=== PATIENT | male | born 1950 | race Caucasian/White ===

== ENCOUNTER 2018-01-15 18:07 | Inpatient (IN) | payer MEDICARE, OTHER ==
[2018-01-15] MEDS: INSULIN ASPART SUPPLEMENTAL SCALE SQ SCH
[~2018-01-15 18:07] MED LIST: HUMIBIDDM PO; ZITHTAB PO
[2018-01-15 18:38] VITALS: BP 94/43; PULSE 57; RESP 12; TEMP 97.9; O2SAT 96
[2018-01-15 19:13] LABS: AUTOMATED NEUTROPHIL # 13.7 TH/MM3 (1.8-7.7); BASOPHIL # 0.1 TH/MM3 (0-0.2); BASOPHIL % 0.5 % (0.0-2.0); EOSINOPHIL # 0.3 TH/MM3 (0-0.4); EOSINOPHIL % 1.6 % (0.0-4.0); LYMPH % 5.6 % (9.0-44.0); LYMPHOCYTE # 0.9 TH/MM3 (1.0-4.8); MEAN CELL VOLUME 97.6 FL (80.0-100.0); MEAN CORPUSCULAR HEMOGLOBIN 31.1 PG (27.0-34.0); MEAN CORPUSCULAR HGB CONC 31.9 % (32.0-36.0); MEAN PLATELET VOLUME 10.7 FL (7.0-11.0); MONO % 6.7 % (0.0-8.0); MONOCYTE # 1.1 TH/MM3 (0-0.9); NEUT % 85.6 % (16.0-70.0); PLATELET COUNT 143 TH/MM3 (150-450); RED BLOOD COUNT 2.08 MIL/MM3 (4.50-5.90); RED CELL DISTRIBUTION WIDTH 16.5 % (11.6-17.2)
[2018-01-15 19:18] LABS: HEMATOCRIT 20.3 % (39.0-51.0); HEMOGLOBIN 6.5 GM/DL (13.0-17.0)
[2018-01-15 19:24] LABS: INTERNATIONAL NORMALIZED RATIO 1.3 RATIO; PROTHROMBIN TIME - PATIENT 13.6 SEC (9.8-11.6)
[2018-01-15 19:29] LABS: TOTAL PROTEIN 5.6 GM/DL (6.4-8.2)
[2018-01-15] MEDS ORDERED: SODIUM CHLOR 0.9% 250 ML INJ 250 ML IV ONE (19:30)
--- NOTE | 2018-01-15 19:31 | PD ---
HPI Chief Complaint: Abnormal Results Time Seen by Provider: 18:38 Travel History International Travel<30 days: No Contact w/Intl Traveler<30days: No Traveled to known affect area: No History of Present Illness HPI Patient is a 67-year-old male who comes in due to swelling and bruising to his right groin where he had a cardiac cath done on . Per , it looked fine after the procedure, yesterday started to bruise and today got more severely swollen. Patient has a lot of pain to the area. They deny any trauma. He has been experiencing some dizziness. He denies chest pain or shortness of breath. He is a dialysis patient, scheduled for dialysis tomorrow. PFSH Past Medical History Asthma: Yes Cardiovascular Problems: Yes COPD: Yes Diabetes: Yes Patient Takes Glucophage: No Dialysis: Yes Diminished Hearing: No Past Surgical History Valve Replacement: Yes Social History Alcohol Use: No Tobacco Use: No Substance Use: No Allergies-Medications (Allergen,Severity, Reaction): Coded Allergies: heparin (Verified Allergy, Severe, 10/20/17) Reported Meds & Prescriptions Reported Meds & Active Scripts Active Mucinex DM (Dextromethorphan-Guaifenesin) 30-600 Mg Tab 1 Tab PO BID PRN 7 Days Zithromax Z-Deandre (Azithromycin) 250 Mg Dspk 250 Mg PO DIRECTED 500 MG (2 tabs) day 1, then 1 tab days 2-5. Review of Systems Except as stated in HPI: all other systems reviewed are Neg General / Constitutional: No: Fever, Chills HENT: Positive: Lightheadedness, No: Headaches Cardiovascular: No: Chest Pain or Discomfort Respiratory: No: Shortness of Breath Gastrointestinal: No: Nausea, Vomiting Musculoskeletal: Positive: Edema, Pain Skin: Positive Change in Pigmentation Neurologic: Positive: Dizziness, No: Weakness Physical Exam Narrative GENERAL: Awake and alert, no acute distress. SKIN: Expanding hematoma of the right groin, 8 inches in diameter. Surrounding ecchymosis on the right leg. HEAD: Atraumatic. Normocephalic. EYES: Pupils equal and round. No scleral icterus. ENT: Mucous membranes pink and moist. NECK: Trachea midline. No JVD. CARDIOVASCULAR: Regular rate and rhythm. No murmur appreciated. RESPIRATORY: No accessory muscle use. Clear to auscultation. Breath sounds equal bilaterally. GASTROINTESTINAL: Abdomen soft, non-tender, nondistended. MUSCULOSKELETAL: No obvious deformities. No clubbing. No cyanosis. NEUROLOGICAL: Awake and alert. No obvious cranial nerve deficits. Motor grossly within normal limits. Normal speech. PSYCHIATRIC: Appropriate mood and affect; insight and judgment normal. Data Data Last Documented VS Vital Signs Date Time Temp Pulse Resp B/P (MAP) Pulse Ox O2 Delivery O2 Flow Rate FiO2 01/15/18 18:45 60 01/15/18 18:38 97.9 12 94/43 (60) 96 Orders Orders Iv Access Insert/Monitor (01/15/18 18:42) Complete Blood Count With Diff (01/15/18 18:42) Comprehensive Metabolic Panel (01/15/18 18:42) Type And Screen (01/15/18 18:42) Act Partial Throm Time (Ptt) (01/15/18 18:42) Prothrombin Time / Inr (Pt) (01/15/18 18:42) Cta Thor Abd Aorta W Iv C W3d (01/15/18 19:01) Red Blood Cells (Rbc) (01/15/18 19:19) Blood Product Administration (01/15/18 19:19) Sodium Chlor 0.9% 250 Ml Inj (Ns 250 Ml (01/15/18 19:30) Labs Laboratory Tests Test 01/15/18 18:50 White Blood Count 16.0 TH/MM3 Red Blood Count 2.08 MIL/MM3 Hemoglobin 6.5 GM/DL Hematocrit 20.3 % Mean Corpuscular Volume 97.6 FL Mean Corpuscular Hemoglobin 31.1 PG Mean Corpuscular Hemoglobin Concent 31.9 % Red Cell Distribution Width 16.5 % Platelet Count 143 TH/MM3 Mean Platelet Volume 10.7 FL Neutrophils (%) (Auto) 85.6 % Lymphocytes (%) (Auto) 5.6 % Monocytes (%) (Auto) 6.7 % Eosinophils (%) (Auto) 1.6 % Basophils (%) (Auto) 0.5 % Neutrophils # (Auto) 13.7 TH/MM3 Lymphocytes # (Auto) 0.9 TH/MM3 Monocytes # (Auto) 1.1 TH/MM3 Eosinophils # (Auto) 0.3 TH/MM3 Basophils # (Auto) 0.1 TH/MM3 CBC Comment DIFF FINAL Differential Comment Prothrombin Time 13.6 SEC Prothromb Time International Ratio 1.3 RATIO Activated Partial Thromboplast Time 27.0 SEC MDM Medical Decision Making Medical Screen Exam Complete: Yes Emergency Medical Condition: Yes Medical Record Reviewed: Yes Differential Diagnosis Aneurysm versus dissection versus anemia versus hypertension Narrative Course Patient is a 67-year-old male who comes in complaining of expanding right groin hematoma. Exam shows a large hematoma the right groin. Patient is hypotensive on arrival. IV established, labs sent. Labs show a hemoglobin of 6.5. 2 units of blood ordered. CTA of the aorta ordered. I spoke with Dr. Blakely who suggests talking to interventional radiology. I tried to call the interventional radiologist, but have not received a call back yet. Patient signed out to Dr. Vieira to follow-up testing and manage the patient. Samantha Sepulveda MD Jan 15, 2018 19:31
[2018-01-15] MEDS ORDERED: dialyvite (19:48)
[2018-01-15] MEDS ORDERED: RENVELA-SEVELAMER PO (19:48)
[2018-01-15] MEDS ORDERED: TRAD5TAB PO (19:48)
[2018-01-15] MEDS ORDERED: SENS60TA PO (19:48)
[2018-01-15] MEDS ORDERED: CARV12.52 PO (19:48)
[2018-01-15] MEDS ORDERED: FURO40TA PO (19:49)
[2018-01-15] MEDS ORDERED: IOHEXOL 350 MG/ML 10 ML VIAL (for RAD DIAG) IVCONTRAST ONE (20:07)
--- NOTE | 2018-01-15 20:19 | RADRPT ---
EXAM DATE/TIME: 01/15/2018 19:51 [facility] COMPARISON: No previous studies available for comparison. INDICATIONS : Abdomen pain. IV CONTRAST: 100 cc Omnipaque 350 (iohexol) IV RADIATION DOSE: 34.46 CTDIvol (mGy) MEDICAL HISTORY : Cardiovascular disease. Diabetes mellitus type 2. Dyalisis SURGICAL HISTORY : Heart cath. ENCOUNTER: Initial ACUITY: 1 day PAIN SCALE: 5/10 LOCATION: Bilateral abdomen TECHNIQUE: Volumetric scanning was performed using a multi-row detector CT scanner. The data was post processed with a variety of visualization algorithms including full volume maximum intensity projection, multi -planar sliding thin slab reformation, curved planar reformation, and surface rendering techniques. Using automated exposure control and adjustment of the mA and/or kV according to patient size, radiat ion dose was kept as low as reasonably achievable to obtain optimal diagnostic quality images. DICOM format image data is available electronically for review and comparison. FINDINGS: There is active arterial contrast extravasation from the distal right common femoral artery into an e normous medial thigh hematoma. The common femoral artery is otherwise notable for mild eccentric dise ase. The profunda is patent. The contralateral left femoral artery has a similar appearance without i njury. Elsewhere, the thoracic aorta is normal in caliber with moderate atheromatous irregularity and patchy intimal calcification. The arch vessels are intact. The aortic visceral vessels are patent with marquis re ostial disease involving the celiac and SMA and moderately severe calcific disease involving the r enal artery origins. The ELENA is patent. No abdominal aortic or iliac inflow stenosis is identified. Elsewhere on the exam, note is made of abdominal ascites. No retroperitoneal hematoma is identified. There are dependent stones in the gallbladder. There are renal cysts. CONCLUSION: Active extravasation from a small perforation in the distal right common femoral artery with leakage into a very large medial thigh hematoma. Dr. Sepulveda and Dr. Lux were alerted to the findings u norm interpretation. Hossein Irene MD on January 15, 2018 at 20:13 Board Certified Radiologist. This report was verified electronically.
--- NOTE | 2018-01-15 20:19 | PD ---
Physical Exam Narrative General: The patient is a well-developed well-nourished male in no acute distress. Head and Neck exam: Head is normocephalic atraumatic. Eyes: EOMI, pupils are equal round and reactive to light. Nose: Midline septum with pink mucous membranes Mouth: Dentition unremarkable. Moist mucus membranes. Posterior oropharynx is not erythematous. No tonsillar hypertrophy. Uvula midline. Airway patent. Neck: No palpable lymphadenopathy. No nuchal rigidity. No thyromegaly. Cardiovascular: Sinus bradycardia in the 50s with a 2/6 systolic murmur. No gallops or rubs. No pulse deficit to the extremities. Lungs: Clear to auscultation bilaterally. No wheezes, rhonchi, or rales. Abdomen: Soft, without tenderness to palpation in all 4 quadrants of the abdomen. No guarding, rebound, or rigidity. Extremities: No clubbing, cyanosis, or edema. 2+ pulses in all 4 extremities. Right groin has a large hematoma noted with markings from prior ER physician's evaluation. The patient's hematoma extension has not moved past this. Back: No spinous process tenderness to palpation. No costovertebral angle tenderness to palpation. Neurologic Exam: Skin Exam: No rash noted. Intact skin that is warm and dry. Data Data Last Documented VS Vital Signs Date Time Temp Pulse Resp B/P (MAP) Pulse Ox O2 Delivery O2 Flow Rate FiO2 01/15/18 22:00 62 16 91/42 (58) 95 Room Air 01/15/18 21:40 97.5 Orders Orders Iv Access Insert/Monitor (01/15/18 18:42) Complete Blood Count With Diff (01/15/18 18:42) Comprehensive Metabolic Panel (01/15/18 18:42) Type And Screen (01/15/18 18:42) Act Partial Throm Time (Ptt) (01/15/18 18:42) Prothrombin Time / Inr (Pt) (01/15/18 18:42) Cta Thor Abd Aorta W Iv C W3d (01/15/18 19:01) Red Blood Cells (Rbc) (01/15/18 19:19) Blood Product Administration (01/15/18 19:19) Sodium Chlor 0.9% 250 Ml Inj (Ns 250 Ml (01/15/18 19:30) Iohexol 350 Inj (Omnipaque 350 Inj) (01/15/18 20:07) Electrocardiogram (01/15/18 18:35) Red Blood Cells (Rbc) (01/15/18 21:13) Consent (01/15/18 21:13) Blood Product Administration (01/15/18 21:13) Cefazolin 2 Gm Premix (Ancef 2 Gm Premix (01/15/18 21:30) Complete Blood Count With Diff (01/16/18 06:00) Basic Metabolic Panel (Bmp) (01/16/18 06:00) Calcium Gluconate Inj (Calcium Gluconate (01/15/18 21:45) Dextrose 50% In Booker (Syr) Inj (D50w (Syr (01/15/18 21:45) Insulin Human Regular Inj (Novolin R Inj (01/15/18 21:45) Sodium Polysty Sulfate Liq (Kayexalate L (01/15/18 21:45) Albuterol Neb (Albuterol Neb) (01/15/18 21:45) Sodium Bicarbonate 8.4% Inj (Sodium Bica (01/15/18 22:00) Hgb & Hct (01/16/18 07:00) Hgb & Hct (01/16/18 13:00) Hgb & Hct (01/16/18 19:00) Consult Nephrology (01/15/18 ) Phosphorus (Po4) (01/15/18 22:28) Cinacalcet (Sensipar) (01/16/18 09:00) Sevelamer (Renvela) (01/16/18 09:00) Acetamin-Hydrocod 325-5 Mg ([place] 5-325 (01/15/18 22:30) Morphine Inj (Morphine Inj) (01/15/18 22:30) Morphine Inj (Morphine Inj) (01/15/18 22:30) Admit To Inpatient (01/15/18 ) Code Status (01/15/18 22:31) Vital Signs (Adult) ZENA.Q1H (01/15/18 22:31) Activity Bed Rest (01/15/18 22:31) Diet Npo (01/16/18 Breakfast) Sodium Chloride 0.9% Flush (Ns Flush) (01/15/18 22:45) Sodium Chloride 0.9% Flush (Ns Flush) (01/16/18 09:00) Acetaminophen (Tylenol) (01/15/18 22:45) Famotidine Inj (Pepcid Inj) (01/16/18 09:00) Famotidine (Pepcid) (01/16/18 09:00) Ondansetron Inj (Zofran Inj) (01/15/18 22:45) Albuterol Neb (Albuterol Neb) (01/15/18 22:45) Media [employer] Director [employer] / Telemetry ZENA.Q8H (01/15/18 22:31) Scd Bilateral/Knee High ZENA.BID (01/15/18 22:31) ^ Initiate Protocol (01/15/18:) Instruction (01/15/18:) [facility] Nursing Information (01/15/18 22:45) Chlorhexidine 2% Cloth (Chlorhexidine 2% (01/16/18 04:00) Chlorhexidine 2% Cloth (Chlorhexidine 2% (01/15/18 22:45) Mrsa Pcr Surveillance (01/15/18 22:31) Docusate Sodium-Senna (Tasneem-Colace) (01/16/18 09:00) Magnesium Hydroxide Liq (Milk Of Magnesi (01/15/18 22:45) Sennosides (Senokot) (01/15/18 22:45) Bisacodyl Supp (Dulcolax Supp) (01/15/18 22:45) Lactulose Liq (Lactulose Liq) (01/15/18 22:45) Inpatient Certification (01/15/18 ) Chest, Single Ap (01/15/18 ) Bedside Glucose . DIRECTED (01/15/18 22:31) Blood Glucose Goal (Criteria) (01/15/18 22:31) Hypoglycemia 70 Mg/Dl Or < (01/15/18 22:31) Notify Dr: Other (01/15/18:) Dextrose 50% In [place] (Vial) Inj (D50w (Vi (01/15/18 22:45) Glucagon Inj (Glucagon Inj) (01/15/18 22:45) Insulin Aspart Supplemtl Scale (Novolog (01/15/18 23:00) (Hub Use Only)Inp Phy Cons/Ref (01/15/18 ) Admit Order (Ed Use Only) (01/15/18 22:51) Echo 2d Comp With Doppler (01/16/18 ) Protein Corrected Calcium(Pcc) (01/16/18 06:00) Labs Laboratory Tests Test 01/15/18 18:50 01/15/18 20:54 White Blood Count 16.0 TH/MM3 Red Blood Count 2.08 MIL/MM3 Hemoglobin 6.5 GM/DL Hematocrit 20.3 % Mean Corpuscular Volume 97.6 FL Mean Corpuscular Hemoglobin 31.1 PG Mean Corpuscular Hemoglobin Concent 31.9 % Red Cell Distribution Width 16.5 % Platelet Count 143 TH/MM3 Mean Platelet Volume 10.7 FL Neutrophils (%) (Auto) 85.6 % Lymphocytes (%) (Auto) 5.6 % Monocytes (%) (Auto) 6.7 % Eosinophils (%) (Auto) 1.6 % Basophils (%) (Auto) 0.5 % Neutrophils # (Auto) 13.7 TH/MM3 Lymphocytes # (Auto) 0.9 TH/MM3 Monocytes # (Auto) 1.1 TH/MM3 Eosinophils # (Auto) 0.3 TH/MM3 Basophils # (Auto) 0.1 TH/MM3 CBC Comment DIFF FINAL Differential Comment Prothrombin Time 13.6 SEC Prothromb Time International Ratio 1.3 RATIO Activated Partial Thromboplast Time 27.0 SEC Blood Urea Nitrogen 70 MG/DL Creatinine 8.66 MG/DL Random Glucose 135 MG/DL Total Protein 5.6 GM/DL Albumin 2.6 GM/DL Calcium Level 7.0 MG/DL Alkaline Phosphatase 123 U/L Aspartate Amino Transf (AST/SGOT) 43 U/L Alanine Aminotransferase (ALT/SGPT) 43 U/L Total Bilirubin 1.0 MG/DL Sodium Level 136 MEQ/L Potassium Level 7.3 MEQ/L Chloride Level 102 MEQ/L Carbon Dioxide Level 20.6 MEQ/L Anion Gap 13 MEQ/L Estimat Glomerular Filtration Rate 6 ML/MIN Protein Corrected Calcium 7.8 MG/DL Phosphorus Level 5.9 MG/DL [facility] Medical Record Reviewed: Yes Supervised Visit with JAQUELINE: No Interpretation(s) Last Impressions Aorta CTA 01/15/18 190 Signed Impressions: Service Date/Time: Monday, January 15, 2018 19:51 - CONCLUSION: Active extravasation from a small perforation in the distal right common femoral artery with leakage into a very large medial thigh hematoma. Dr. Sepulveda and Dr. Lux were alerted to the findings upon interpretation. Hossein Irene MD Chest X-Ray 01/15/18 0000 Signed Impressions: Service Date/Time: Monday, January 15, 2018 23:42 - CONCLUSION: No acute disease. Joshua Cummings MD Narrative Course During the course of the patient's emergency department visit, the patient's history, examination, and differential diagnosis were reviewed with the patient. The patient was placed on a conveyor monitor with oximetry and frequent blood pressure monitoring. The patient had IV access obtained and blood work sent for analysis. The patient's case was checked out to me by Dr. Sepulveda. Please see her complete history and physical. The patient's case was checked out to me at the conclusion of her shift. Prior to her shift ending, I was told by the initial emergency department physician, Dr. Sepulveda that Dr. Irene the reading radiologist had been in discussion with Dr. Parker the vascular surgeon transportation director regarding the patient's femoral artery injury and the plan was to take the patient to the OR for repair. The patient's laboratory studies were reviewed and remarkable for a white count of 16, hemoglobin 6.5 for which the patient was typed and crossmatched for blood administration when available, platelets 143, neutrophils 85.6, lymphocytes 5.6, CMP is remarkable for a potassium of 7.3, CO2 20.6, BUN 70, creatinine 8.66, glucose 135, protein corrected calcium 7.8, AST 43, albumin 2.6. Due to the patient's hyperkalemia the patient had administered calcium gluconate 1 g IV, Kayexalate p.o., 1 amp of D50 followed by regular insulin 10 units IV, 1 amp of bicarb, and one albuterol nebulizer treatment. PT 13.6, INR 1.3, PTT 27 Radiology studies were reviewed and remarkable for A chest x-ray that shows no acute cardiopulmonary disease. CTA of the aorta shows active extravasation from a small perforation in the distal right common femoral artery with leakage into a very large medial thigh hematoma. The patient's case was discussed with he did come into the emergency department to evaluate the patient. It was agreed that the patient will be admitted to the engineer operations and maintenance service. The patient will be stabilized regarding his hyperkalemia and anemia, with the plan to go to the OR in the morning. The patient's case was then discussed with Dr. Kaba who did agree to admit the patient for further evaluation and treatment at this time. Dr. Kaba additionally involve the embedded developer on-call regarding the patient's hyperkalemia and chronic renal failure as the patient will require dialysis due to the hyperkalemia as well as IV contrast administration for CT a of the aorta. The patient's results were discussed with the patient, including the plan of care. I explained that further testing and/ or monitoring is indicated based on the patient's history, examination, and/ or laboratory findings. Therefore, I recommended admission for additional evaluation. The patient expressed understanding and was agreeable with this plan. The patient was admitted to the hospital in guarded condition and sent to a bed under the care of the engineer operations and maintenance service. Critical Care Narrative Aggregate critical care time was 33 minutes. Time to perform other separately billable procedures was not included in the critical care time. My time did not include minutes spent treating any other patients simultaneously or on activities that did not directly contribute to the patient's treatment. The services I provided to this patient were to treat and/or prevent clinically significant deterioration that could result in: Cardiac arrhythmia from hyperkalemia, versus cardiopulmonary arrest, versus fluid overload from blood product administration in combination with chronic renal failure. I provided critical care services requiring my management, as noted below: Chart data review, documentation time, medication orders and management, vital sign assessments/reviewing monitor data, ordering and reviewing lab tests, ordering and interpreting/reviewing x-rays and diagnostic studies, care of the patient and discussion of the patient with the admitting physicians. Physician Communication Physician Communication The patient's case including history, pertinent physical examination findings, and laboratory studies were discussed with Dr. Lux and Dr. Kaba. It was agreed that the patient would be admitted to the engineer operations and maintenance's service. Diagnosis Primary Impression: Injury of right femoral artery Qualified Codes: S75.001A - Unspecified injury of femoral artery, right leg, initial encounter Additional Impressions: Hematoma Anemia Qualified Codes: D64.9 - Anemia, unspecified Hyperkalemia Admitting Information Admitting Physician Requests: Admit Manda Vieira MD Jan 15, 2018 20:19
--- NOTE | 2018-01-15 21:22 | PD.CAR.PN ---
CVT Progress Note Subjective/Hospital Course: Patient seen consult dictated. To OR tomorrow. Thanks J Objective: Vital Signs Date Time Temp Pulse Resp B/P (MAP) Pulse Ox O2 Delivery O2 Flow Rate FiO2 01/15/18 18:45 60 01/15/18 18:38 97.9 57 12 94/43 (60) 96 Labs: Laboratory Tests Test 01/15/18 18:50 01/15/18 20:54 White Blood Count 16.0 TH/MM3 (4.0-11.0) Red Blood Count 2.08 MIL/MM3 (4.50-5.90) Hemoglobin 6.5 GM/DL (13.0-17.0) Hematocrit 20.3 % (39.0-51.0) Mean Corpuscular Volume 97.6 FL (80.0-100.0) Mean Corpuscular Hemoglobin 31.1 PG (27.0-34.0) Mean Corpuscular Hemoglobin Concent 31.9 % (32.0-36.0) Red Cell Distribution Width 16.5 % (11.6-17.2) Platelet Count 143 TH/MM3 (150-450) Mean Platelet Volume 10.7 FL (7.0-11.0) Neutrophils (%) (Auto) 85.6 % (16.0-70.0) Lymphocytes (%) (Auto) 5.6 % (9.0-44.0) Monocytes (%) (Auto) 6.7 % (0.0-8.0) Eosinophils (%) (Auto) 1.6 % (0.0-4.0) Basophils (%) (Auto) 0.5 % (0.0-2.0) Neutrophils # (Auto) 13.7 TH/MM3 (1.8-7.7) Lymphocytes # (Auto) 0.9 TH/MM3 (1.0-4.8) Monocytes # (Auto) 1.1 TH/MM3 (0-0.9) Eosinophils # (Auto) 0.3 TH/MM3 (0-0.4) Basophils # (Auto) 0.1 TH/MM3 (0-0.2) CBC Comment DIFF FINAL Differential Comment Prothrombin Time 13.6 SEC (9.8-11.6) Prothromb Time International Ratio 1.3 RATIO Activated Partial Thromboplast Time 27.0 SEC (24.3-30.1) Total Protein 5.6 GM/DL (6.4-8.2) Alkaline Phosphatase 123 U/L (45-117) Total Bilirubin 1.0 MG/DL (0.2-1.0) Result Diagram: 01/15/18 1850 Delio Lux MD Jan 15, 2018 21:22
[2018-01-15 21:23] VITALS: BP 96/44; PULSE 62; RESP 17; TEMP 98.2; O2SAT 96
[2018-01-15] MEDS ORDERED: ceFAZolin 2 GM PREMIX 50 ML IV SCH (21:30)
[2018-01-15 21:36] LABS: ALBUMIN 2.6 GM/DL (3.4-5.0); BICARBONATE 20.6 MEQ/L (21.0-32.0); CALCIUM-PROTEIN CORRECTED 7.8 MG/DL (8.5-10.1); CREATININE 8.66 MG/DL (0.60-1.30)
[2018-01-15 21:40] VITALS: BP 92/42; PULSE 60; RESP 16; TEMP 97.5; O2SAT 96
[2018-01-15] MEDS ORDERED: DEXTROSE 50% IN WATER 50 ML SYRINGE IV PUSH ONE (21:45)
[2018-01-15] MEDS ORDERED: SODIUM POLYSTYRENE SULFONATE SUSP 15 GM/60 ML CUP PO ONE (21:45)
[2018-01-15] MEDS ORDERED: CALCIUM GLUCONATE INJ 1 GM in DEXTROSE 5% IN WATER 100ML INJ 100 ML IV ONE ×2 (21:45)
[2018-01-15] MEDS ORDERED: INSULIN HUMAN REGULAR 1,000 UNITS/10 ML VIAL IV PUSH ONE (21:45)
[2018-01-15] MEDS ORDERED: RESP: ALBUTEROL 2.5 MG/3 ML NEB (SCH) NEB ONE (21:45)
[2018-01-15 22:00] VITALS: BP 91/42; PULSE 62; RESP 16; O2SAT 95
[2018-01-15] MEDS ORDERED: SODIUM BICARBONATE 8.4% INJ 50 MEQ/50 ML SYR IV PUSH ONE (22:00)
[2018-01-15] MEDS ORDERED: MORPHINE SULFATE 4 MG/ML INJ IV PUSH PRN (22:30)
[2018-01-15] MEDS ORDERED: MISCELLANEOUS NURSING INFORMATION XX SCH (22:45)
[2018-01-15] MEDS ORDERED: RESP: ALBUTEROL 2.5 MG/3 ML NEB (PRN) INH (22:45)
[2018-01-15] MEDS ORDERED: DEXTROSE 50% IN WATER 50 ML VIAL(D50) IV PUSH PRN (22:45)
[2018-01-15] MEDS ORDERED: MAGNESIUM HYDROXIDE SUSP 30 ML CUP PO PRN (22:45)
[2018-01-15] MEDS ORDERED: ACETAMINOPHEN 325 MG TAB PO PRN (22:45)
[2018-01-15] MEDS ORDERED: GLUCAGON 1 MG/ML VIAL OTHER PRN (22:45)
[2018-01-15] MEDS ORDERED: ONDANSETRON HCL 4 MG/2 ML VIAL IV PUSH PRN (22:45)
[2018-01-15] MEDS ORDERED: CHLORHEXIDINE GLUCONATE 2 % 1 PACK (2 CLOTHS) TOP PRN (22:45)
[2018-01-15] MEDS ORDERED: BISACODYL 10 MG SUPP RECTAL PRN (22:45)
[2018-01-15] MEDS ORDERED: SENNOSIDES 8.6 MG TAB PO PRN (22:45)
[2018-01-15] MEDS ORDERED: SODIUM CHLORIDE 0.9% FLUSH 10 ML FLUSH IV FLUSH PRN (22:45)
[2018-01-15] MEDS ORDERED: LACTULOSE SYRUP 20 GM/30 ML CUP PO PRN (22:45)
[2018-01-15 23:30] VITALS: BP 102/46; PULSE 86; RESP 22; TEMP 98.9; O2SAT 96
[2018-01-15 23:34] VITALS: BP 102/46; PULSE 79; RESP 22; TEMP 98.5; O2SAT 100
[2018-01-16] VITALS (19 sets, daily range): BP systolic 72–129; BP diastolic 46–58; PULSE 70–87; RESP 13–21; TEMP 98.6–99.3; O2SAT 94–100
--- NOTE | 2018-01-16 00:02 | RADRPT ---
EXAM DATE/TIME: 01/15/2018 23:42 [facility] COMPARISON: CHEST SINGLE AP, October 20, 2017, 13:56. INDICATIONS : Short of breath. MEDICAL HISTORY : None. SURGICAL HISTORY : CABG. ENCOUNTER: Initial ACUITY: 1 day PAIN SCORE: 0/10 LOCATION: Bilateral chest FINDINGS: A single AP portable supine view of the chest was obtained and again demonstrate the patient status p ost median sternotomy. An artificial heart valve is noted in place. There are no confluent infiltrate s or effusions. There is no perihilar edema. Atherosclerotic calcifications are present in the aorta. There are overlying electrocardiogram leads. A metallic stent catheter is again noted in the left ax illa. CONCLUSION: No acute disease. Joshua Cummings MD on January 16, 2018 at 0:00 Board Certified Radiologist. This report was verified electronically.
[2018-01-16] MEDS ORDERED: NS 250 ML IV PRN (01:00)
[2018-01-16] MEDS ORDERED: ALBUMIN 25% 25 GM/100 ML BAG IV PRN (01:00)
[2018-01-16] MEDS ORDERED: cloNIDine HCL 0.1 MG TAB PO PRN (01:00)
[2018-01-16] MEDS ORDERED: ACETAMINOPHEN 325 MG TAB PO PRN (01:00)
[2018-01-16] MEDS ORDERED: diphenhydrAMINE HCL 25 MG CAP PO PRN (01:00)
[2018-01-16] MEDS ORDERED: NITROGLYCERIN 0.4 MG SL 25 TABS/BTL SL PRN (01:00)
[2018-01-16] MEDS ORDERED: ONDANSETRON HCL 4 MG/2 ML VIAL IV PUSH PRN (01:00)
[2018-01-16] MEDS ORDERED: SODIUM CHLOR 0.9% 1000 ML OTHER PRN ×2 (01:00)
[2018-01-16] MEDS ORDERED: SODIUM CHLORIDE 0.9% FLUSH 10 ML FLUSH IV FLUSH PRN (01:00)
[2018-01-16] MEDS ORDERED: GENTAMICIN SULFATE 20 MG/2 ML VIAL OTHER PRN (01:00)
[2018-01-16] MEDS ORDERED: MANNITOL 12.5 GM/50 ML VIAL IV PUSH PRN (01:00)
[2018-01-16] MEDS ORDERED: GELATIN 12 MM/7 MM FOAM TOPICAL PRN (01:00)
[2018-01-16 02:35] LABS: AUTOMATED NEUTROPHIL # 18.6 TH/MM3 (1.8-7.7); BASOPHIL # 0.1 TH/MM3 (0-0.2); BASOPHIL % 0.6 % (0.0-2.0); EOSINOPHIL # 0.1 TH/MM3 (0-0.4); EOSINOPHIL % 0.5 % (0.0-4.0); HEMATOCRIT 31.8 % (39.0-51.0); HEMOGLOBIN 11.2 GM/DL (13.0-17.0); LYMPH % 4.2 % (9.0-44.0); LYMPHOCYTE # 0.9 TH/MM3 (1.0-4.8); MEAN CELL VOLUME 90.4 FL (80.0-100.0); MEAN CORPUSCULAR HEMOGLOBIN 31.9 PG (27.0-34.0); MEAN CORPUSCULAR HGB CONC 35.3 % (32.0-36.0); MEAN PLATELET VOLUME 9.9 FL (7.0-11.0); MONOCYTE # 1.5 TH/MM3 (0-0.9); NEUT % 87.7 % (16.0-70.0); PLATELET COUNT 108 TH/MM3 (150-450); RED BLOOD COUNT 3.52 MIL/MM3 (4.50-5.90); RED CELL DISTRIBUTION WIDTH 16.5 % (11.6-17.2); WHITE BLOOD COUNT 21.2 TH/MM3 (4.0-11.0)
[2018-01-16] MEDS: CHLORHEXIDINE GLUCONATE 2 % 1 PACK (2 CLOTHS) TOP SCH (03:19)
[2018-01-16] MEDS: INSULIN ASPART SUPPLEMENTAL SCALE SQ SCH ×3 (05:00→20:57)
--- NOTE | 2018-01-16 06:06 | PD.CONS ---
[facility] Service Critical Care Medicine Consult Requested By Primary Care Physician Lacie Best MD Past Family Social History Allergies: Coded Allergies: heparin (Verified Allergy, Severe, 10/20/17) Physical Exam Vital Signs Vital Signs Date Time Temp Pulse Resp B/P (MAP) Pulse Ox O2 Delivery O2 Flow Rate FiO2 01/16/18 05:00 79 21 104/51 (68) 94 01/16/18 04:00 98.6 77 18 108/52 (70) 95 01/16/18 03:00 79 18 114/58 (76) 97 01/16/18 02:00 70 13 129/55 (79) 100 01/16/18 01:35 98.8 70 13 116/57 100 01/16/18 01:00 73 15 110/55 (73) 100 01/16/18 00:36 98.9 73 16 72/46 100 01/16/18 00:00 98.9 80 17 105/49 (67) 100 01/15/18 23:34 98.5 79 22 102/46 100 01/15/18 23:30 86 01/15/18 23:30 98.9 86 22 102/46 (64) 96 01/15/18 22:00 62 16 91/42 (58) 95 Room Air 01/15/18 21:40 97.5 60 16 92/42 96 01/15/18 21:23 98.2 62 17 96/44 96 01/15/18 18:45 60 01/15/18 18:38 97.9 57 12 94/43 (60) 96 Laboratory Laboratory Tests Test 01/15/18 18:50 01/15/18 20:54 01/15/18 23:30 01/16/18 02:18 White Blood Count 16.0 21.2 Red Blood Count 2.08 3.52 Hemoglobin 6.5 11.2 Hematocrit 20.3 31.8 Mean Corpuscular Volume 97.6 90.4 Mean Corpuscular Hemoglobin 31.1 31.9 Mean Corpuscular Hemoglobin Concent 31.9 35.3 Red Cell Distribution Width 16.5 16.5 Platelet Count 143 108 Mean Platelet Volume 10.7 9.9 Neutrophils (%) (Auto) 85.6 87.7 Lymphocytes (%) (Auto) 5.6 4.2 Monocytes (%) (Auto) 6.7 7.0 Eosinophils (%) (Auto) 1.6 0.5 Basophils (%) (Auto) 0.5 0.6 Neutrophils # (Auto) 13.7 18.6 Lymphocytes # (Auto) 0.9 0.9 Monocytes # (Auto) 1.1 1.5 Eosinophils # (Auto) 0.3 0.1 Basophils # (Auto) 0.1 0.1 CBC Comment DIFF FINAL DIFF FINAL Differential Comment Prothrombin Time 13.6 Prothromb Time International Ratio 1.3 Activated Partial Thromboplast Time 27.0 Blood Urea Nitrogen 70 Creatinine 8.66 Random Glucose 135 Total Protein 5.6 Albumin 2.6 Calcium Level 7.0 Alkaline Phosphatase 123 Aspartate Amino Transf (AST/SGOT) 43 Alanine Aminotransferase (ALT/SGPT) 43 Total Bilirubin 1.0 Sodium Level 136 Potassium Level 7.3 Chloride Level 102 Carbon Dioxide Level 20.6 Anion Gap 13 Estimat Glomerular Filtration Rate 6 Protein Corrected Calcium 7.8 Phosphorus Level 5.9 Nasal Screen MRSA (PCR) MRSA NOT DETECTED Result Diagram: 01/16/18 0218 01/15/18 205 Anitra Kaba MD Jan 16, 2018 06:06
[2018-01-16 06:58] LABS: HEMATOCRIT 27.1 % (39.0-51.0); HEMOGLOBIN 9.6 GM/DL (13.0-17.0)
[2018-01-16 07:42] LABS: CALCIUM 7.2 MG/DL (8.5-10.1); CREATININE 5.23 MG/DL (0.60-1.30)
[2018-01-16] MEDS: SEVELAMER CARBONATE 800 MG TAB PO SCH ×3 (07:49→18:00)
[2018-01-16] MEDS: FAMOTIDINE 20 MG TAB PO SCH ×2 (07:49→21:00)
[2018-01-16] MEDS: FAMOTIDINE 20 MG/2 ML VIAL IV PUSH SCH ×2 (07:50→21:00)
[2018-01-16] MEDS: SODIUM CHLORIDE 0.9% FLUSH 10 ML FLUSH IV FLUSH SCH ×2 (07:51→21:00)
[2018-01-16] MEDS: DOCUSATE SODIUM 50 MG/SENNA 8.6 MG TAB PO SCH ×2 (07:51→21:00)
--- NOTE | 2018-01-16 08:22 | MB ---
cc: DELIO LYLE MD DATE OF CONSULTATION 01/15/2018 REASON FOR CONSULTATION Pseudoaneurysm of the right groin, huge hematoma of the right thigh. HISTORY OF PRESENT DISEASE This 67-year-old gentleman, who appears older than his actual age, underwent a cardiac catheterization on at [facility]. He was discharged on Monday. His son noted a huge hematoma in the groin, tried to call the office, nobody answered. On Monday the same happened. Today apparently the message was not given to the doctor so the patient was transferred emergently via ambulance to our institution. I was called by radiology to attend the attend the patient immediately after the CT scan was read. The patient is apparently being prepared for an aortic valve replacement and as part of the work-up he underwent a catheterization which allegedly was negative although I do not have the result. PAST MEDICAL HISTORY 1. Coronary artery disease. 2. COPD. 3. Diabetes mellitus. 4. End-stage renal failure. PAST SURGICAL HISTORY Coronary bypass surgery. SOCIAL HISTORY The patient does not smoke, does not drink. ALLERGIES APPARENTLY THE PATIENT MAY HAVE HAD DEVELOPED HEPARIN-INDUCED THROMBOCYTOPENIA AT SOME POINT. MEDICATIONS 1. Mucinex. 2. Zithromax. I believe there are more medications I just do not have them here. PHYSICAL EXAMINATION GENERAL: A 67-year-old gentleman. HEENT: Normocephalic. No trauma to the head. Pupils equal and reactive. Extraocular muscles intact. NECK: Bilateral carotid pulses and bilateral carotid bruits. CHEST: Bilateral breath sounds decreased over both lung reddy. HEART: Regular rhythm. The patient has two murmurs. He has a systolic 4/6 murmur over the right second intercostal space consistent with aortic stenosis, and the patient also has a diastolic murmur over the ictus cordis and left parasternal border consistent with mitral insufficiency. I am not sure which one is the goal of next surgery, but probably aortic stenosis. ABDOMEN: Soft. No rebound. No guarding. No masses. EXTREMITIES: On left lower extremity the patient has a palpable femoral pulse. On the right lower extremity I do not feel any pulse, however, the patient has a huge hematoma that encompasses most of the right medial thigh extending to the right superior thigh. This correlates with the CT findings. Distally the patient actually has palpable popliteal, dorsalis pedis and posterior tibial pulses bilaterally. The feet are warm. IMPRESSION AND RECOMMENDATIONS Patient with an a huge hematoma resulting from a bleed. The patient now has a pseudoaneurysm of the common femoral artery which is openly leaking into the thigh. I have discussed this with Dr. Irene. There is no point in putting in any thrombin in there because it is going to leak down anyway. At this point the patient needs surgical intervention. His hemoglobin is 6.8 and he will require at least 3 units of blood to prepare him for this and then some fluids. Considering that he is a dialysis patient nephrology will be consulted. The patient will be admitted to Medicine. The patient will be n.p.o. and will go to the operating room tomorrow morning. Delio BORJA/BT /9:23 PM /8:00 AM
[2018-01-16 08:23] LABS: CALCIUM-PROTEIN CORRECTED 8.3 MG/DL (8.5-10.1); TOTAL PROTEIN 5.1 GM/DL (6.4-8.2)
[2018-01-16] MEDS ORDERED: CINACALCET HYDROCHLORIDE 30 MG TAB PO SCH (09:00)
--- NOTE | 2018-01-16 09:44 | HHI.HP ---
HPI Service Critical Care Medicine Primary Care Physician Lacie Best MD Admission Diagnosis Femoral artery injury post cardiac cath, anemia, elevated K, ESRD Diagnosis: Travel History International Travel<30 Days: No Contact w/Intl Traveler <30 Da: No Traveled to Known Affected Are: No History of Present Illness This note is entered later. Patient originally seen and managed in ED. Patient is Bulgarian-speaking. Most history is obtained from his son. 67-year-old male with past medical history of end-stage renal disease who has been on hemodialysis approximately 7 years and receives dialysis from Dr. Dickinson on T/R/S schedule. He also has diabetes mellitus, hypertension, aortic regurgitation, aortic stenosis. He has a bioprosthetic aortic valve with severe prosthetic stenosis and has been undergoing workup for redo valve to be performed by Dr. Bowers. On 01/11/18 he underwent cardiac catheterization as part of the workup, performed at [facility] by Dr. Cox. Reports states minimal coronary disease. He began having bruising and swelling of his right groin on 01/13/18 and this progressed over the last couple of days. The pain was becoming worse and unbearable and so he presented to [facility] emergency department. CTA demonstrated extravasation fromright common femoral artery pseudoaneurysm with leakage into a large medial thigh hematoma. Vascular surgery was consulted and Dr. Lux has evaluated and plans to take patient to OR in the morning. Patient 's hemoglobin is 6.5. Blood pressure is 94/43. Heart rate is in the 60s. His potassium is 7.3. Dr. Vieira has ordered medical treatment of hyperkalemia including albuterol nebs, Kayexalate 15 g, insulin 10 units IV, 1 amp of D50, calcium gluconate 1 g, bicarbonate 50 mEq IV. I have contacted Dr. Enrique who will proceed with emergent dialysis in order to stabilize patient for anticipated OR. Patient's son states he underwent dialysis at the outpatient center on 01/11/18 and on 01/13/18 Review of Systems Constitutional: DENIES: Fever Respiratory: DENIES: Cough, Sputum production, Shortness of breath Cardiovascular: DENIES: Chest pain, Syncope Gastrointestinal: DENIES: Nausea, Vomiting Musculoskeletal: COMPLAINS OF: Muscle aches Past Family Social History Allergies: Coded Allergies: heparin (Verified Allergy, Severe, 11/24/17) Past Medical History End-stage renal disease on hemodialysis Monday//Monday (Dr. Dickinson, [place]) Aortic valve replacement reportedly about 7 years ago; now with Prosthetic stenosis Tricuspid regurgitation Aortic stenosis Aortic regurgitation CHF, nonspecified Diabetes Cataracts Hypertension Past Surgical History Aortic valve replacement approximately 7 years ago Eft upper extremity fistula 7 years ago Skin cancer removal He has had interventions to his left upper extremity fistula by Dr. Bryan Verdugo. Reported Medications Carvedilol 12.5 mg by mouth daily Lasix 40 g by mouth daily Tradjenta 5 mg po daily Sensipar 60 g by mouth daily (Azithromycin that was on med rec is not current) Family History Son reports no significant family medical history Social History Lives in [place] Lifetime nonsmoker Used to drink occasionally but not since his valve replacement No illicit drug use Lives in [place] Physical Exam Vital Signs Vital Signs Date Time Temp Pulse Resp B/P (MAP) Pulse Ox O2 Delivery O2 Flow Rate FiO2 01/16/18 09:00 76 18 104/51 (68) 95 01/16/18 08:18 99.3 81 16 106/53 (70) 96 01/16/18 07:00 80 01/16/18 06:00 80 20 105/51 (69) 96 01/16/18 05:00 79 21 104/51 (68) 94 01/16/18 04:00 98.6 77 18 108/52 (70) 95 01/16/18 03:00 79 18 114/58 (76) 97 01/16/18 02:00 70 13 129/55 (79) 100 01/16/18 01:35 98.8 70 13 116/57 100 01/16/18 01:00 73 15 110/55 (73) 100 01/16/18 00:36 98.9 73 16 72/46 100 01/16/18 00:00 98.9 80 17 105/49 (67) 100 01/15/18 23:34 98.5 79 22 102/46 100 01/15/18 23:30 86 01/15/18 23:30 98.9 86 22 102/46 (64) 96 01/15/18 22:00 62 16 91/42 (58) 95 Room Air 01/15/18 21:40 97.5 60 16 92/42 96 01/15/18 21:23 98.2 62 17 96/44 96 01/15/18 18:45 60 01/15/18 18:38 97.9 57 12 94/43 (60) 96 Physical Exam GENERAL: Well-nourished, well-developed Bulgarian-speaking patient who is laying in ED stretcher. SKIN/MSK/VASC: Warm and dry. There is a large ecchymosis with hematoma overlying right groin extending proximal to the inguinal ligament and down right anterior medial thigh. Hematoma is at least 25 cm across and margins have been demarcated with pen. The compartments is not tense. He is able to internally and externally rotate hip. Foot is warm with palpable DP pulse and PARTY CHIEF pulse. Left upper sternal a fistula with palpable thrill. HEAD: Atraumatic. Normocephalic. EYES: R pupil 2mm and reactive. L pupil 4 mm and nonreactive. No scleral icterus. No injection or drainage. ENT: No nasal bleeding or discharge. Mucous membranes pink and moist. NECK: Trachea midline. No JVD. CARDIOVASCULAR: Regular rate and rhythm. 4/6 systolic murmur right sternal border and 3/6 diastolic murmur left lower sternal border. RESPIRATORY: Breathing comfortably with no accessory muscle use. On room air. Clear to auscultation bilaterally. GASTROINTESTINAL: Abdomen soft, non-tender, nondistended. Bowel sounds present. NEUROLOGICAL: Awake and alert. No obvious cranial nerve deficits. Motor grossly within normal limits. Bulgarian-speaking. Does not appear dysarthric Laboratory Laboratory Tests Test 01/15/18 18:50 01/15/18 20:54 01/15/18 23:30 01/16/18 02:18 White Blood Count 16.0 21.2 Red Blood Count 2.08 3.52 Hemoglobin 6.5 11.2 Hematocrit 20.3 31.8 Mean Corpuscular Volume 97.6 90.4 Mean Corpuscular Hemoglobin 31.1 31.9 Mean Corpuscular Hemoglobin Concent 31.9 35.3 Red Cell Distribution Width 16.5 16.5 Platelet Count 143 108 Mean Platelet Volume 10.7 9.9 Neutrophils (%) (Auto) 85.6 87.7 Lymphocytes (%) (Auto) 5.6 4.2 Monocytes (%) (Auto) 6.7 7.0 Eosinophils (%) (Auto) 1.6 0.5 Basophils (%) (Auto) 0.5 0.6 Neutrophils # (Auto) 13.7 18.6 Lymphocytes # (Auto) 0.9 0.9 Monocytes # (Auto) 1.1 1.5 Eosinophils # (Auto) 0.3 0.1 Basophils # (Auto) 0.1 0.1 CBC Comment DIFF FINAL DIFF FINAL Differential Comment Prothrombin Time 13.6 Prothromb Time International Ratio 1.3 Activated Partial Thromboplast Time 27.0 Blood Urea Nitrogen 70 Creatinine 8.66 Random Glucose 135 Total Protein 5.6 Albumin 2.6 Calcium Level 7.0 Alkaline Phosphatase 123 Aspartate Amino Transf (AST/SGOT) 43 Alanine Aminotransferase (ALT/SGPT) 43 Total Bilirubin 1.0 Sodium Level 136 Potassium Level 7.3 Chloride Level 102 Carbon Dioxide Level 20.6 Anion Gap 13 Estimat Glomerular Filtration Rate 6 Protein Corrected Calcium 7.8 Phosphorus Level 5.9 Nasal Screen MRSA (PCR) MRSA NOT DETECTED Test 01/16/18 06:00 Hemoglobin 9.6 Hematocrit 27.1 Blood Urea Nitrogen 34 Creatinine 5.23 Random Glucose 94 Total Protein 5.1 Calcium Level 7.2 Sodium Level 141 Potassium Level 3.7 Chloride Level 101 Carbon Dioxide Level 30.0 Anion Gap 10 Estimat Glomerular Filtration Rate 11 Protein Corrected Calcium 8.3 Result Diagram: 01/16/1859901/16/18 06 Caprini VTE Risk Assessment Caprini VTE Risk Assessment: Mod/High Risk (score >= 2) VTE Pharm Contraindication: Active bleeding Caprini Risk Assessment Model Point Value = 1 Point Value = 2 Point Value = 3 Point Value = 5 Age 41-60 Minor surgery BMI > 25 kg/m2 Swollen legs Varicose veins or History of unexplained or recurrent spontaneous Oral contraceptives or hormone replacement Sepsis (< 1 month) Serious lung disease, including pneumonia (< 1 month) Abnormal pulmonary function Acute myocardial infarction Congestive heart failure (< 1 month) History of inflammatory bowel disease Medical patient at bed rest Age 61-74 Arthroscopic surgery Major open surgery (> 45 min) Laparoscopic surgery (> 45 min) Malignancy Confined to bed (> 72 hours) Immobilizing plaster cast Central venous access Age >= 75 History of VTE Family history of VTE Factor V Leiden Prothrombin [id number] Lupus anticoagulant Anticardiolipin antibodies Elevated serum homocysteine Heparin-induced thrombocytopenia Other congenital or acquired thrombophilia Stroke (< 1 month) Elective arthroplasty Hip, pelvis, or leg fracture Acute spinal cord injury (< 1 month) Prophylaxis Regimen Total Risk Factor Score Risk Level Prophylaxis Regimen 0-1 Low Early ambulation 2 Moderate Order ONE of the following: *Sequential Compression Device (SCD) *Heparin 5000 units SQ BID 3-4 Higher Order ONE of the following medications: *Heparin 5000 units SQ TID *Enoxaparin/Lovenox 40 mg SQ daily (WT < 150 kg, CrCl > 30 mL/min) *Enoxaparin/Lovenox 30 mg SQ daily (WT < 150 kg, CrCl > 10-29 mL/min) *Enoxaparin/Lovenox 30 mg SQ BID (WT < 150 kg, CrCl > 30 mL/min) AND/OR *Sequential Compression Device (SCD) 5 or more Highest Order ONE of the following medications: *Heparin 5000 units SQ TID (Preferred with Epidurals) *Enoxaparin/Lovenox 40 mg SQ daily (WT < 150 kg, CrCl > 30 mL/min) *Enoxaparin/Lovenox 30 mg SQ daily (WT < 150 kg, CrCl > 10-29 mL/min) *Enoxaparin/Lovenox 30 mg SQ BID (WT < 150 kg, CrCl > 30 mL/min) AND *Sequential Compression Device (SCD) Assessment and Plan Assessment and Plan NEURO: Pain Lortab as needed for pain Morphine as needed for breakthrough pain. RESP: On room air. CV: Hypertension Aortic stenosis status post aortic valve replacement now with severe prosthetic stenosis. Right femoral artery pseudoaneurysm LBBB Undergoing workup for redo AVR by Dr. Bowers Cardiac catheterization 01/11/[address] Cox Vascular surgery consult for right femoral artery pseudoaneurysm. Dr. Lux to repair in OR 01/16. Will address acute blood loss anemia and severe hyperkalemia prior to OR. GI: NPO FEN/RENAL: ESRD Severe hyperkalemia Secondary hyperparathyroidism Received calcium, bicarbonate 50 mEq, insulin 10 units IV, amp D50, albuterol, Kayexalate in the emergency department. Contacted Dr. Enrique who will proceed with emergent HD. Patient's primary camera prototyping engineer is Dr. Dickinson in [place]. Has left upper extremity fistula which has recently been functioning following intervention by Dr. Dannie Verdugo. Continue Renvela 800 mg by mouth 3 times a day. Sensipar 60 po daily Patient still makes some urine. ID: Monitor for signs and symptoms of infection HEME: Acute blood loss anemia Thrombocytopenia Transfuse 3 units packed red cells with hemodialysis. Type and hold has been ordered for OR per Dr. Ramon Riojas unremarkable. Platelet count greater than 100. No antiplatelet or anticoagulant. Serial hemoglobin every 6 hours and transfuse as indicated for hemoglobin less than 8 or hypotension. Epogen 10,000 units with dialysis. ENDO: Diabetes mellitus Hold tradjenta 5 mg po daily Monitor bedside glucose. And initiate low-dose insulin sliding scale as indicated. PROPH: SCDs for DVT prophylaxis. Pharmacologic DVT prophylaxis contraindicated due to acute blood loss from pseudoaneurysm, can be initiated postoperatively when appropriate per vascular surgery. Famotidine for stress ulcer prophylaxis. ACCESS: Peripheral IV providing adequate access at this time. Left upper extremity fistula Patient is critically ill with high risk for decompensation given vascular injury with acute blood loss anemia, low blood pressures, severe life- threatening hyperkalemia requiring emergent nephrology consult for hemodialysis. Will require close monitoring in ICU. Full code Discussed with Dr. Lux. Discussed with Dr. Enrique. Discussed with son at bedside. CCT 55 minutes exclusive of separately billable procedures. Anitra Kaba MD Jan 16, 2018 09:44
[2018-01-16] MEDS ORDERED: EPOETIN ALFA 10,000 UNITS/ML VIAL IV SCH (10:00)
[2018-01-16] MEDS ORDERED: DEXTROSE 50% IN WATER 50 ML VIAL(D50) IV PUSH PRN (10:15)
[2018-01-16] MEDS ORDERED: GLUCAGON 1 MG/ML VIAL OTHER PRN (10:15)
--- NOTE | 2018-01-16 10:21 | PD.CONS ---
HPI Service Nephrology Consult Requested By Reason for Consult ESRD on HD Primary Care Physician Lacie Best MD History of Present Illness This is a 67 y/o male dialysis patient from [place]. Typical TTS HD. He had a cardiac cath via right groin on at [facility], was discharged Monday. He noticed bruising the next day but was unable to reach the physician. He presented here with large hematoma and severe anemia. In addition his potassium was 7.3, thus he was dialyzed urgently late last night. We were consulted to assist with dialysis management. He has been seen by vascular, imaging shows femoral leak, is to go to OR today. Per the , he still makes some urine. His blood pressure is stable. (Leticia Santiaog) Review of Systems Constitutional: COMPLAINS OF: Fatigue, DENIES: Fever Respiratory: DENIES: Shortness of breath Cardiovascular: COMPLAINS OF: Lower Extremity Edema, DENIES: Dyspnea on Exertion Musculoskeletal: COMPLAINS OF: Muscle aches, Joint Swelling Hematologic/lymphatic: COMPLAINS OF: Bruising (Leticia Santiago) Past Family Social History Allergies: Coded Allergies: heparin (Verified Allergy, Severe, 10/20/17) Past Medical History ESRD on HD TTS, (Dr. Dickinson, [place]) AVR reportedly about 7 years ago; now with Prosthetic stenosis Tricuspid regurgitation Aortic regurgitation CHF, nonspecified Diabetes Cataracts Hypertension Past Surgical History Aortic valve replacement approximately 7 years ago Eft upper extremity fistula 7 years ago Skin cancer removal He has had interventions to his left upper extremity fistula by Dr. Bryan Verdugo. Reported Medications Carvedilol 12.5 mg by mouth daily Lasix 40 g by mouth daily Tradjenta 5 mg po daily Sensipar 60 g by mouth daily Active Ordered Medications Current Medications Medications (Trade) Dose Ordered Sig/Misti Route Start Time Stop Time Status Last Admin Sodium Chloride 250 ml @ 15 mls/hr ONCE ONCE IV 01/15/18 19:30 01/16/18 12:09 01/15/18 21:28 Cefazolin Sodium/ Dextrose 50 ml @ 100 mls/hr MORTUARY OPERATIONS MANAGER IV 01/15/18 21:30 01/18/18 21:29 (Renvela) 800 mg TID PO 01/16/18 09:00 ([place] 5-325 Mg) 1 tab Q6H PRN PO 01/15/18 22:30 (Morphine Inj) 2 mg Q3H PRN IV PUSH 01/15/18 22:30 (Morphine Inj) 4 mg Q3H PRN IV PUSH 01/15/18 22:30 (NS Flush) 2 ml UNSCH PRN IV FLUSH 01/15/18 22:45 (NS Flush) 2 ml BID IV FLUSH 01/16/18 09:00 01/16/18 07:51 (Tylenol) 650 mg Q6H PRN PO 01/15/18 22:45 (Pepcid Inj) 20 mg Q12HR IV PUSH 01/16/18 09:00 (Pepcid) 20 mg Q12HR PO 01/16/18 09:00 01/16/18 07:49 (Zofran Inj) 4 mg Q6H PRN IV PUSH 01/15/18 22:45 (Albuterol Neb) 2.5 mg Q2HR NEB PRN INH 01/15/18 22:45 Miscellaneous Information 1 Q361D XX 01/15/18 22:45 01/15/18 23:45 (Chlorhexidine 2% Cloth) 3 pack Taper DAILY@04 TOP 01/16/18 04:00 01/12/19 03:59 01/16/18 03:19 (Chlorhexidine 2% Cloth) 3 pack UNSCH PRN TOP 01/15/18 22:45 (Tasneem-Colace) 1 tab BID PO 01/16/18 09:00 01/16/18 07:51 (Milk Of Magnesia Liq) 30 ml Q12H PRN PO 01/15/18 22:45 (Senokot) 17.2 mg Q12H PRN PO 01/15/18 22:45 (Dulcolax Supp) 10 mg DAILY PRN RECTAL 01/15/18 22:45 (Lactulose Liq) 30 ml DAILY PRN PO 01/15/18 22:45 (D50w (Vial) Inj) 50 ml UNSCH PRN IV PUSH 01/15/18 22:45 (Glucagon Inj) 1 mg UNSCH PRN OTHER 01/15/18 22:45 (NovoLOG SUPPLEMENTAL SCALE) 1 Q6H SQ 01/15/18 23:00 Sodium Chloride 1,000 ml @ 0 mls/hr TITRATE PRN OTHER 01/16/18 01:00 Sodium Chloride 1,000 ml @ 200 mls/hr Q5H PRN OTHER 01/16/18 01:00 Sodium Chloride 200 ml @ 0 mls/hr UNSCH PRN IV 01/16/18 01:00 (Mannitol Inj) 12.5 gm UNSCH PRN IV PUSH 01/16/18 01:00 Albumin Human 100 ml @ 60 mls/hr UNSCH PRN IV 01/16/18 01:00 (NS Flush) 5 ml UNSCH PRN IV FLUSH 01/16/18 01:00 (Gentamicin Inj) 10 mg UNSCH PRN OTHER 01/16/18 01:00 (Gelfoam 12 Mm/7 Mm Top) 1 foam UNSCH PRN TOPICAL 01/16/18 01:00 (Zofran Inj) 4 mg UNSCH PRN IV PUSH 01/16/18 01:00 (Tylenol) 650 mg UNSCH X1 PRN PO 01/16/18 01:00 01/23/18 00:59 (Benadryl) 25 mg UNSCH PRN PO 01/16/18 01:00 (Nitrostat Sl) 0.4 mg UNSCH PRN SL 01/16/18 01:00 (Catapres) 0.1 mg UNSCH PRN PO 01/16/18 01:00 (Epogen Inj) 10,000 units WITH DIALYSIS IV 01/16/18 10:00 (D50w (Vial) Inj) 50 ml UNSCH PRN IV PUSH 01/16/18 10:15 UNV (Glucagon Inj) 1 mg UNSCH PRN OTHER 01/16/18 10:15 UNV (NovoLOG SUPPLEMENTAL SCALE) 1 ACHS SLIDING SCALE SQ 01/16/18 12:00 UNV Family History Non contributory Social History Smoker Lives in [place] No ETOH (Leticia Santiago) Physical Exam Vital Signs Vital Signs Date Time Temp Pulse Resp B/P (MAP) Pulse Ox O2 Delivery O2 Flow Rate FiO2 01/16/18 09:00 76 18 104/51 (68) 95 01/16/18 08:18 99.3 81 16 106/53 (70) 96 01/16/18 07:00 80 01/16/18 06:00 80 20 105/51 (69) 96 01/16/18 05:00 79 21 104/51 (68) 94 01/16/18 04:00 98.6 77 18 108/52 (70) 95 01/16/18 03:00 79 18 114/58 (76) 97 01/16/18 02:00 70 13 129/55 (79) 100 01/16/18 01:35 98.8 70 13 116/57 100 01/16/18 01:00 73 15 110/55 (73) 100 01/16/18 00:36 98.9 73 16 72/46 100 01/16/18 00:00 98.9 80 17 105/49 (67) 100 01/15/18 23:34 98.5 79 22 102/46 100 01/15/18 23:30 86 01/15/18 23:30 98.9 86 22 102/46 (64) 96 01/15/18 22:00 62 16 91/42 (58) 95 Room Air 01/15/18 21:40 97.5 60 16 92/42 96 01/15/18 21:23 98.2 62 17 96/44 96 01/15/18 18:45 60 01/15/18 18:38 97.9 57 12 94/43 (60) 96 Physical Exam Young appearing male speaks some Vietnamese Not in distress S1S2, no murmur lungs clear Abd soft Right groin, hematoma extends into midthigh, scrotal area, very tender. Distal pulses and motor intake. LUE AVF, + thrill/bruit Laboratory Laboratory Tests Test 01/15/18 18:50 01/15/18 20:54 01/15/18 23:30 01/16/18 02:18 White Blood Count 16.0 21.2 Red Blood Count 2.08 3.52 Hemoglobin 6.5 11.2 Hematocrit 20.3 31.8 Mean Corpuscular Volume 97.6 90.4 Mean Corpuscular Hemoglobin 31.1 31.9 Mean Corpuscular Hemoglobin Concent 31.9 35.3 Red Cell Distribution Width 16.5 16.5 Platelet Count 143 108 Mean Platelet Volume 10.7 9.9 Neutrophils (%) (Auto) 85.6 87.7 Lymphocytes (%) (Auto) 5.6 4.2 Monocytes (%) (Auto) 6.7 7.0 Eosinophils (%) (Auto) 1.6 0.5 Basophils (%) (Auto) 0.5 0.6 Neutrophils # (Auto) 13.7 18.6 Lymphocytes # (Auto) 0.9 0.9 Monocytes # (Auto) 1.1 1.5 Eosinophils # (Auto) 0.3 0.1 Basophils # (Auto) 0.1 0.1 CBC Comment DIFF FINAL DIFF FINAL Differential Comment Prothrombin Time 13.6 Prothromb Time International Ratio 1.3 Activated Partial Thromboplast Time 27.0 Blood Urea Nitrogen 70 Creatinine 8.66 Random Glucose 135 Total Protein 5.6 Albumin 2.6 Calcium Level 7.0 Alkaline Phosphatase 123 Aspartate Amino Transf (AST/SGOT) 43 Alanine Aminotransferase (ALT/SGPT) 43 Total Bilirubin 1.0 Sodium Level 136 Potassium Level 7.3 Chloride Level 102 Carbon Dioxide Level 20.6 Anion Gap 13 Estimat Glomerular Filtration Rate 6 Protein Corrected Calcium 7.8 Phosphorus Level 5.9 Nasal Screen MRSA (PCR) MRSA NOT DETECTED Test 01/16/18 06:00 Hemoglobin 9.6 Hematocrit 27.1 Blood Urea Nitrogen 34 Creatinine 5.23 Random Glucose 94 Total Protein 5.1 Calcium Level 7.2 Sodium Level 141 Potassium Level 3.7 Chloride Level 101 Carbon Dioxide Level 30.0 Anion Gap 10 Estimat Glomerular Filtration Rate 11 Protein Corrected Calcium 8.3 (Leticia Santiago) Result Diagram: 01/16/18 0600 01/16/18 0600 Imaging Last 72 hours Impressions Aorta CTA 01/15/18 1901 Signed Impressions: Service Date/Time: Monday, January 15, 2018 19:51 - CONCLUSION: Active extravasation from a small perforation in the distal right common femoral artery with leakage into a very large medial thigh hematoma. Dr. Sepulveda and Dr. Lux were alerted to the findings upon interpretation. Hossein Irene MD Chest X-Ray 01/15/18 0000 Signed Impressions: Service Date/Time: Monday, January 15, 2018 23:42 - CONCLUSION: No acute disease. Joshua Cummings MD (Leticia Santiago) Assessment and Plan Problem List: (1) ESRD (end stage renal disease) ICD Codes: N18.6 - End stage renal disease Plan: TTS HD, he was dialyzed late last night AVF left arm is patent Follows in [place] with habilitation specialist. Avoid IVF, gadolinium is contraindicated Monitor renal profile. High protein diet when no longer NPO (2) Hyperkalemia, diminished renal excretion ICD Codes: E87.5 - Hyperkalemia Plan: Dialyzed on a 1K, repeat labs are improved. (3) Hematoma ICD Codes: T14.8XXA - Other injury of unspecified body region, initial encounter Plan: s/p cardiac cath, has femoral leak Vascular following, surgical repair today Continue supportive care, transfuse if needed (4) Anemia ICD Codes: D64.9 - Anemia, unspecified Plan: Given 1 PRBC, 2 leuk rad. RBC Start epogen with HD Check iron profile. (5) Hypocalcemia ICD Codes: E83.51 - Hypocalcemia Plan: Stop Sensipar, check iPTH and 25 hydroxy level (Leticia Santiago) Assessment and Plan patient was seen and examined. Seen in the ICU. He was dialyzed emergently yesterday for hyperkalemia. He is going to surgery today: has bleeding from Femoral artery. Has hematoma in the groin and thigh. Agree with above assessment and plan. Monitor hemoglobin. Continue HD TTS (Louis Enrique MD) Leticia Santiago Jan 16, 2018 10:21 Louis Enrique MD Jan 16, 2018 16:21
[2018-01-16] MEDS ORDERED: ePHEDrine/NS 25 MG/5 ML SYRINGE IV ONE (12:00)
[2018-01-16] MEDS ORDERED: PROPOFOL 200 MG/20 ML AMP IV ONE (12:00)
[2018-01-16] MEDS ORDERED: NEOSTIGMINE 5 MG/5 ML SYRINGE IV PUSH ONE (12:00)
[2018-01-16] MEDS ORDERED: PHENYLEPH/NS 1000 MCG/10 ML SYR IV ONE (12:00)
[2018-01-16] MEDS ORDERED: LIDOCAINE HCL 1% PF 5 ML SYRINGE OTHER ONE (12:00)
[2018-01-16] MEDS ORDERED: GLYCOPYRROLATE 1 MG/5 ML SYRINGE IV PUSH ONE (12:00)
[2018-01-16 12:50] LABS: HEPATITIS A AB IGM NEGATIVE (NEGATIVE); HEPATITIS B CORE AB IGM NEGATIVE (NEGATIVE); HEPATITIS B SURFACE ANTIGEN NEGATIVE (NEGATIVE); HEPATITIS C AB IgG NEGATIVE (NEGATIVE)
[2018-01-16 13:20] LABS: IRON (FE) 175 MCG/DL (65-175); TOTAL IRON BINDING CAPACITY 175 MCG/DL (250-450)
[2018-01-16] MEDS ORDERED: METOPROLOL TARTRATE 25 MG TAB PO PRN (14:45)
[2018-01-16] MEDS ORDERED: LACTATED RINGER'S 1000 ML IV PRN (14:45)
[2018-01-16] MEDS ORDERED: POVIDONE IODINE 5% (ANTISEPSIS KIT) 4 APPLICATIONS EACH NARE PRN (14:45)
[2018-01-16] MEDS ORDERED: CHLORHEXIDINE GLUCONATE 2 % 1 PACK (2 CLOTHS) TOPICAL PRN (14:45)
[2018-01-16] MEDS ORDERED: SODIUM CHLORID 0.9% 500 ML IV PRN (14:45)
[2018-01-16] MEDS ORDERED: HEPARIN SODIUM - IV 10,000 UNITS/10 ML VIAL ONE (15:05)
[2018-01-16] MEDS ORDERED: HEPARIN SODIUM - SQ 10,000 UNITS/ML VIAL ONE (15:05)
[2018-01-16] MEDS ORDERED: PROTAMINE SULFATE 50 MG/5 ML VIAL ONE (15:05)
[2018-01-16] MEDS ORDERED: CISATRACURIUM BESYLATE 20 MG/10 ML VIAL ONE (15:32)
[2018-01-16] MEDS ORDERED: ARGATROBAN 250 MG in NS 250 ML IV PRN (16:45)
[2018-01-16] MEDS ORDERED: SEVEL800 PO (16:49)
[2018-01-16 17:11] LABS: HEMATOCRIT 24.8 % (39.0-51.0); HEMOGLOBIN 8.6 GM/DL (13.0-17.0)
[2018-01-16] MEDS ORDERED: VASOPRESSIN 20 UNITS/ML VIAL ONE (17:26)
[2018-01-16] MEDS ORDERED: DO NOT ADM ANY ANTICOAGULANT DRUGS PRN (18:07)
--- NOTE | 2018-01-16 18:28 | EKG ---
Date Performed: 01/15/2018 Time Performed: 18:35:29 PTAGE: 67 years EKG: Sinus rhythm WITH FIRST DEGREE AV BLOCK MARKED LEFT AXIS DEVIATION LEFT BUNDLE BRANCH BLOCK ABNORMAL ECG NO PREVIOUS TRACING DOCTOR: Kelly Cintron Interpretating Date/Time 01/16/2018 18:21:27
[2018-01-16] MEDS ORDERED: *morphine SULFATE 4 MG/ML PERIprocedure ONLY ONE (18:46)
--- NOTE | 2018-01-16 19:16 | MP ---
cc: DELIO LYLE MD DATE OF SURGERY 01/16/2018 PREOPERATIVE DIAGNOSIS Large pseudoaneurysm of the right common femoral artery and huge hematoma of the right thigh measuring about 30 cm in diameter. Active bleeding. 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 Active bleeding. OPERATIVE PROCEDURE Right common femoral artery repair, evacuation of pseudoaneurysm tissue, retroperitoneal control of the external iliac artery on the right and evacuation of a large hematoma of the thigh. SURGEON Dr. Lyle ANESTHESIA General. ESTIMATED BLOOD LOSS About 300 cc plus evacuation of about 2 liters of old blood. INDICATIONS FOR PROCEDURE This 67-year-old male underwent coronary angiogram at another institution last week. and Monday he noticed hematoma, tried to call the office, could not get anybody. This continued to enlarge through Monday, Monday, Monday. Finally Monday night the patient presented to our emergency room instead of going to the original hospital which was probably smart in the end. He was diagnosed with above. He was resuscitated from hemoglobin of 6 and then taken to the operating room now on an urgent basis. DETAILS OF PROCEDURE The patient was prepped and draped in the usual fashion. Incision was made in the right groin obliquely through the groin and extended up slightly over the anterior abdominal wall at the level of the lateral rectus sheath. This one is deepened through the tissues over to the external oblique fascia and then down to the vascular structures. Initially the retroperitoneal approach was chosen for external iliac artery. The preperitoneal space is entered and everything is folded over to the left with retract allowing easy identification of the external iliac artery distally just proximal to the inguinal ligament. A vessel loop was placed around the vessel. Now the groin is opened by extending incision medially. There is a huge amount of blood in the groin. This was evacuated and readily with dissection with a right-angle the common femoral artery is exposed. There is a burst of blood and finger pressure is held here now, quickly the profunda clamp is placed on the external iliac artery in the retroperitoneal space allowing for the easy control of the vessel. There is some back bleeding of course. The common femoral artery was now dissected free. It is noted that the patient has a Perclose device in there with sort of a lateral position and the patient's vessel is very calcific so I can see why the Perclose device did not hold. There is a large rent in the vessel measuring about 6 mm in length and sort of oblique in appearance. This one is cleaned out of surrounding tissue and then interrupted 5-0 Prolene stitches are placed and this is nicely closed. Blood flow is immediately established. In case the patient did need heparinization being allergic to heparin, argatroban was available for the same but because of the short clamp time, we did not even use it. After the closure the patient has excellent pulse in the vessel and foot is well-perfused. There is no distal embolization. Area irrigated with copious amounts of saline. Now the hematoma of the right thigh is attended. Superficial layers of the skin are starting to peel off in a form of bullae just like you would see in second-degree burn. This was resected and then I entered the hematoma from two ends from below by making about inch and half incision so I could put my fingers in it from the top from the original incision itself. There is a huge amount of clotted blood in there. This is extracted and then all of these clots were removed. There is about 2 liters of old blood in there. The cavity is washed with saline copiously and then 10 flat SINCERE is inserted through separate stab wound. Area irrigated with copious amounts of saline once more. The opening in the thigh closed with interrupted 2-0 Prolene and the groin incision that extends to the anterior abdominal wall was closed in layers with #1 Vicryl running stitch for deep layer, then for the external oblique fascia and then 2-0 Vicryl for the subcutaneous tissue. Skin was closed with 3-0 Monocryl. Benzoin, Steri-Strips applied. Dressing applied. The patient tolerated procedure well. Delio RAMOS /5:57 PM /6:38 PM SRIKANTH
[2018-01-16] MEDS ORDERED: SODIUM CHLORID 0.9% 500 ML INJ 500 ML IV ONE (20:00)
[2018-01-16] MEDS: ACETAMINOPHEN/HYDROcodone 325 MG/5 MG TAB PO PRN (23:54)
[2018-01-17] VITALS (12 sets, daily range): BP systolic 97–113; BP diastolic 46–59; PULSE 72–85; RESP 18–29; TEMP 98.2–99.5; O2SAT 93–98
[2018-01-17 00:12] LABS: HEMATOCRIT 23.6 % (39.0-51.0); HEMOGLOBIN 8.2 GM/DL (13.0-17.0)
[2018-01-17] MEDS: CHLORHEXIDINE GLUCONATE 2 % 1 PACK (2 CLOTHS) TOP SCH ×2 (04:05→23:36)
[2018-01-17 05:36] LABS: AUTOMATED NEUTROPHIL # 23.5 TH/MM3 (1.8-7.7); BASOPHIL # 0.1 TH/MM3 (0-0.2); BASOPHIL % 0.5 % (0.0-2.0); EOSINOPHIL # 0.3 TH/MM3 (0-0.4); EOSINOPHIL % 1.1 % (0.0-4.0); HEMATOCRIT 22.6 % (39.0-51.0); HEMOGLOBIN 7.8 GM/DL (13.0-17.0); LYMPH % 3.5 % (9.0-44.0); LYMPHOCYTE # 0.9 TH/MM3 (1.0-4.8); MEAN CELL VOLUME 93.7 FL (80.0-100.0); MEAN CORPUSCULAR HEMOGLOBIN 32.3 PG (27.0-34.0); MEAN CORPUSCULAR HGB CONC 34.5 % (32.0-36.0); MEAN PLATELET VOLUME 10.2 FL (7.0-11.0); MONO % 7.3 % (0.0-8.0); NEUT % 87.6 % (16.0-70.0); PLATELET COUNT 121 TH/MM3 (150-450); RED BLOOD COUNT 2.42 MIL/MM3 (4.50-5.90); RED CELL DISTRIBUTION WIDTH 17.1 % (11.6-17.2); WHITE BLOOD COUNT 26.8 TH/MM3 (4.0-11.0)
[2018-01-17 05:52] LABS: BICARBONATE 27.8 MEQ/L (21.0-32.0); CALCIUM 7.1 MG/DL (8.5-10.1); CREATININE 6.65 MG/DL (0.60-1.30)
[2018-01-17 06:08] LABS: CALCIUM-PROTEIN CORRECTED 8.1 MG/DL (8.5-10.1); TOTAL PROTEIN 5.2 GM/DL (6.4-8.2)
[2018-01-17] MEDS: INSULIN ASPART SUPPLEMENTAL SCALE SQ SCH ×4 (08:00→20:55)
[2018-01-17] MEDS: SODIUM CHLORIDE 0.9% FLUSH 10 ML FLUSH IV FLUSH SCH ×2 (08:38→20:59)
[2018-01-17] MEDS: SEVELAMER CARBONATE 800 MG TAB PO SCH ×3 (08:39→18:00)
[2018-01-17] MEDS: DOCUSATE SODIUM 50 MG/SENNA 8.6 MG TAB PO SCH ×2 (08:39→20:58)
[2018-01-17] MEDS: FAMOTIDINE 20 MG TAB PO SCH ×2 (08:39→20:58)
[2018-01-17] MEDS: FAMOTIDINE 20 MG/2 ML VIAL IV PUSH SCH ×2 (08:39→20:55)
[2018-01-17] MEDS: MORPHINE SULFATE 2 MG/ML INJ IV PUSH PRN (08:39)
--- NOTE | 2018-01-17 11:42 | PD.CAR.PN ---
CVT Progress Note Subjective/Hospital Course: Patient seen consult dictated. To OR tomorrow. Thanks J 01/17/2018 Status post repair of the right common femoral artery and evacuation of pseudoaneurysm and a large hematoma of the right thigh Incision is clean and dry drainage from SINCERE from the hematoma site is serosanguineous Patient can transfer to floor at this time from my point Objective: Vital Signs Date Time Temp Pulse Resp B/P (MAP) Pulse Ox O2 Delivery O2 Flow Rate FiO2 01/17/18 08:44 22 01/17/18 08:00 98.9 72 18 113/55 (74) 93 01/17/18 07:00 85 01/17/18 07:00 95 Room Air 01/17/18 06:00 99.0 73 18 102/51 (68) 94 01/17/18 02:00 98.9 79 29 97/46 (63) 95 01/17/18 00:29 95 01/17/18 00:00 99.0 77 29 107/51 (69) 94 01/16/18 23:00 75 18 96/46 (63) 96 Room Air 01/16/18 22:30 79 18 97/47 (64) 94 Room Air 01/16/18 22:00 74 11 91/45 (60) 94 Room Air 01/16/18 21:30 76 11 92/45 (61) 95 Room Air 01/16/18 21:00 75 11 94/45 (61) 96 Room Air 01/16/18 20:45 75 16 87/45 (59) 93 Room Air 01/16/18 20:33 79 16 91/45 (60) 96 Room Air 01/16/18 20:30 76 16 90/45 (60) 95 Room Air 01/16/18 20:15 75 18 86/45 (59) 95 Nasal Cannula 2 01/16/18 20:00 71 13 96/46 (63) 100 Nasal Cannula 2 01/16/18 19:47 71 9 89/45 (60) 100 Nasal Cannula 2 01/16/18 19:45 71 11 88/45 (59) 100 Nasal Cannula 2 01/16/18 19:30 69 10 86/42 (57) 100 Nasal Cannula 2 01/16/18 19:15 71 10 91/46 (61) 100 Nasal Cannula 2 01/16/18 19:00 71 10 96/44 (61) 100 Nasal Cannula 2 01/16/18 18:45 72 10 102/46 (64) 100 Nasal Cannula 2 01/16/18 18:30 72 10 113/44 (67) 100 Nasal Cannula 2 01/16/18 18:15 64 10 111/49 (69) 100 Nasal Cannula 2 01/16/18 18:12 67 10 105/51 (69) 100 Nasal Cannula 2 01/16/18 18:10 98.9 69 10 100/46 (64) 100 Nasal Cannula 3 01/16/18 15:30 82 01/16/18 15:15 82 16 111/53 (72) 95 01/16/18 15:00 81 01/16/18 15:00 81 15 109/51 (70) 95 01/16/18 14:00 80 01/16/18 14:00 80 17 111/53 (72) 95 01/16/18 13:08 88 16 131/53 (79) 95 01/16/18 13:08 87 01/16/18 12:08 98.9 81 15 105/52 (69) 95 01/16/18 12:08 Room Air 01/16/18 12:08 81 Labs: Laboratory Tests Test 01/17/18 04:35 White Blood Count 26.8 TH/MM3 (4.0-11.0) Red Blood Count 2.42 MIL/MM3 (4.50-5.90) Hemoglobin 7.8 GM/DL (13.0-17.0) Hematocrit 22.6 % (39.0-51.0) Mean Corpuscular Volume 93.7 FL (80.0-100.0) Mean Corpuscular Hemoglobin 32.3 PG (27.0-34.0) Mean Corpuscular Hemoglobin Concent 34.5 % (32.0-36.0) Red Cell Distribution Width 17.1 % (11.6-17.2) Platelet Count 121 TH/MM3 (150-450) Mean Platelet Volume 10.2 FL (7.0-11.0) Neutrophils (%) (Auto) 87.6 % (16.0-70.0) Lymphocytes (%) (Auto) 3.5 % (9.0-44.0) Monocytes (%) (Auto) 7.3 % (0.0-8.0) Eosinophils (%) (Auto) 1.1 % (0.0-4.0) Basophils (%) (Auto) 0.5 % (0.0-2.0) Neutrophils # (Auto) 23.5 TH/MM3 (1.8-7.7) Lymphocytes # (Auto) 0.9 TH/MM3 (1.0-4.8) Monocytes # (Auto) 2.0 TH/MM3 (0-0.9) Eosinophils # (Auto) 0.3 TH/MM3 (0-0.4) Basophils # (Auto) 0.1 TH/MM3 (0-0.2) CBC Comment DIFF FINAL Differential Comment Blood Urea Nitrogen 48 MG/DL (7-18) Creatinine 6.65 MG/DL (0.60-1.30) Random Glucose 163 MG/DL (74-106) Total Protein 5.2 GM/DL (6.4-8.2) Calcium Level 7.1 MG/DL (8.5-10.1) Sodium Level 139 MEQ/L (136-145) Potassium Level 4.3 MEQ/L (3.5-5.1) Chloride Level 99 MEQ/L (98-107) Carbon Dioxide Level 27.8 MEQ/L (21.0-32.0) Anion Gap 12 MEQ/L (5-15) Estimat Glomerular Filtration Rate 8 ML/MIN (>89) Protein Corrected Calcium 8.1 MG/DL (8.5-10.1) Result Diagram: 01/17/18 0435 01/17/18 0435 Delio Lux MD Jan 17, 2018 11:42
--- NOTE | 2018-01-17 11:50 | HHI.NPPN ---
Subjective General Problems: Anemia Renal Failure: Chronic Interval History He had surgery yesterday. Doing well post operatively. (Leticia Santiago) Objective Data Data Vital Signs Date Time Temp Pulse Resp B/P (MAP) Pulse Ox O2 Delivery O2 Flow Rate FiO2 01/17/18 08:44 22 01/17/18 08:00 98.9 72 18 113/55 (74) 93 01/17/18 07:00 85 01/17/18 07:00 95 Room Air 01/17/18 06:00 99.0 73 18 102/51 (68) 94 01/17/18 02:00 98.9 79 29 97/46 (63) 95 01/17/18 00:29 95 01/17/18 00:00 99.0 77 29 107/51 (69) 94 01/16/18 23:00 75 18 96/46 (63) 96 Room Air 01/16/18 22:30 79 18 97/47 (64) 94 Room Air 01/16/18 22:00 74 11 91/45 (60) 94 Room Air 01/16/18 21:30 76 11 92/45 (61) 95 Room Air 01/16/18 21:00 75 11 94/45 (61) 96 Room Air 01/16/18 20:45 75 16 87/45 (59) 93 Room Air 01/16/18 20:33 79 16 91/45 (60) 96 Room Air 01/16/18 20:30 76 16 90/45 (60) 95 Room Air 01/16/18 20:15 75 18 86/45 (59) 95 Nasal Cannula 2 01/16/18 20:00 71 13 96/46 (63) 100 Nasal Cannula 2 01/16/18 19:47 71 9 89/45 (60) 100 Nasal Cannula 2 01/16/18 19:45 71 11 88/45 (59) 100 Nasal Cannula 2 01/16/18 19:30 69 10 86/42 (57) 100 Nasal Cannula 2 01/16/18 19:15 71 10 91/46 (61) 100 Nasal Cannula 2 01/16/18 19:00 71 10 96/44 (61) 100 Nasal Cannula 2 01/16/18 18:45 72 10 102/46 (64) 100 Nasal Cannula 2 01/16/18 18:30 72 10 113/44 (67) 100 Nasal Cannula 2 01/16/18 18:15 64 10 111/49 (69) 100 Nasal Cannula 2 01/16/18 18:12 67 10 105/51 (69) 100 Nasal Cannula 2 01/16/18 18:10 98.9 69 10 100/46 (64) 100 Nasal Cannula 3 01/16/18 15:30 82 01/16/18 15:15 82 16 111/53 (72) 95 01/16/18 15:00 81 01/16/18 15:00 81 15 109/51 (70) 95 01/16/18 14:00 80 01/16/18 14:00 80 17 111/53 (72) 95 01/16/18 13:08 88 16 131/53 (79) 95 01/16/18 13:08 87 01/16/18 12:08 98.9 81 15 105/52 (69) 95 01/16/18 12:08 Room Air 01/16/18 12:08 81 (Leticia Santiago) -: 01/17/18 0435 01/17/18 0435 Imaging Last 72 hours Impressions Aorta CTA 01/15/18 1901 Signed Impressions: Service Date/Time: Monday, January 15, 2018 19:51 - CONCLUSION: Active extravasation from a small perforation in the distal right common femoral artery with leakage into a very large medial thigh hematoma. Dr. Sepulveda and Dr. Lux were alerted to the findings upon interpretation. Hossein Irene MD Chest X-Ray 01/15/18 0000 Signed Impressions: Service Date/Time: Monday, January 15, 2018 23:42 - CONCLUSION: No acute disease. Joshua Cummings MD Tubes & Lines Comment SINCERE drain (Leticia Santiago) Physical Exam General Appearance: Well Developed, No Acute Distress, Comfortable (Leticia Santiago) Throat Throat Exam: Oral Mucosa [place] & Moist (Leticia Santiago) Pulmonary Resp Exam: Clear Bilaterally, Breath Sounds Equal (Leticia Santiago) Cardiology CV Exam: Regular, Normal Sinus Rhythm (Leticia Santiago) Gastrointestinal/Abdomen GI Exam: Soft, Non-Tender (Leticia Santiago) Musculoskeletal MS Exam: Joints Intact, Normal Tone, Unable to Ambulate (Leticia Santiago) Integumentary Skin Exam: Warm, Dry, Intact (Leticia Santiago) Extremeties Extremities Exam: Pedal Pulses Palpable Extremeties Remarks right leg edema s/p surgical repair. (Leticia Santiago) Neurologic Neuro Exam: Alert, Awake, Oriented, Speech Clear, Moving All Extremities (Leticia Santiago) Psychiatric Psych Exam: Appropriate Responses (Leticia Santiago) Assessment/Plan Discussed Condition With: Patient Assessment Summary: Anemia of CKD, End Stage Renal Disease Electrolyte Assessment: Hypocalcemia Problem List: (1) ESRD (end stage renal disease) ICD Codes: N18.6 - End stage renal disease Plan: TTS HD, he is due tomorrow AVF left arm is patent Follows in [place] with mattress spring encaser. Has outpatient arrangements if discharged. Avoid IVF, gadolinium is contraindicated Monitor renal profile. High protein diet encouraged. (2) Hyperkalemia, diminished renal excretion ICD Codes: E87.5 - Hyperkalemia Plan: Improved with HD (3) Hematoma ICD Codes: T14.8XXA - Other injury of unspecified body region, initial encounter Plan: s/p cardiac cath, has femoral leak Vascular following, s/p surgical repair Continue supportive care, transfuse if needed SINCERE drain care (4) Anemia ICD Codes: D64.9 - Anemia, unspecified Plan: On epogen with HD Transfused Not iron deficient (5) Hypocalcemia ICD Codes: E83.51 - Hypocalcemia Plan: PTH is acceptable. Off Sensipar (Leticia Santiago) Problem List: (1) ESRD (end stage renal disease) ICD Codes: N18.6 - End stage renal disease Plan: TTS HD, he is due tomorrow AVF left arm is patent Follows in [place] with mattress spring encaser. Has outpatient arrangements if discharged. Avoid IVF, gadolinium is contraindicated Monitor renal profile. High protein diet encouraged. (2) Hyperkalemia, diminished renal excretion ICD Codes: E87.5 - Hyperkalemia Plan: Improved with HD (3) Hematoma ICD Codes: T14.8XXA - Other injury of unspecified body region, initial encounter Plan: s/p cardiac cath, has femoral leak Vascular following, s/p surgical repair Continue supportive care, transfuse if needed SINCERE drain care (4) Anemia ICD Codes: D64.9 - Anemia, unspecified Plan: On epogen with HD Transfused Not iron deficient (5) Hypocalcemia ICD Codes: E83.51 - Hypocalcemia Plan: PTH is acceptable. Off Sensipar Plan patient was seen and examined. Agree with above assessment and plan. s/p surgery for bleeding right Femoral artery. Dialysis TTS. Epogen for anemia. Sensipar held due to hypocalcemia. (Louis Enrique MD) Leticia Santiago Jan 17, 2018 11:50 Louis Enrique MD Jan 17, 2018 16:02
--- NOTE | 2018-01-17 13:33 | ECHRPT ---
Indication: Atherosclerotic heart disease of [place] coronary artery with unstable angina pectoris CONCLUSIONS The left ventricular systolic function is moderately reduced with an estimated ejection fraction in the range of 40-45%. Mild concentric left ventricular hypertrophy. Moderately dilated left ventricle. The left atrial size is mildly dilated. Mild mitral annular calcification. Mild mitral valve regurgitation. There is severe tricuspid regurgitation. The estimated pulmonary arterial pressure is 80.2 mmHg. Severe aortic valve stenosis. Aortic valve area is 0.89 cm. Aortic valve mean gradient is 59.7 mmHg. at least mild mitral stenosis with pg=9 mm hg BP: 102 / 51 HR: 73 Rhythm: Other MEASUREMENTS (Male / Female) Normal Values Technical Quality:Good 2D ECHO LV Diastolic Diameter PLAX 6.0 cm 4.2 - 5.9 / 3.9 - 5.3 cm LV Systolic Diameter PLAX 5.0 cm IVS Diastolic Thickness 1.3 cm 0.6 - 1.0 / 0.6 - 0.9 cm LVPW Diastolic Thickness 1.3 cm 0.6 - 1.0 / 0.6 - 0.9 cm LV Relative Wall Thickness 0.4 LVOT Diameter 2.0 cm M-MODE Aortic Root Diameter MM 2.6 cm LA Systolic Diameter MM 4.3 cm LA Ao Ratio MM 1.7 AV Cusp Separation MM 1.3 cm DOPPLER AV Peak Velocity 491.0 cm/s AV Peak Gradient 96.4 mmHg AV Mean Gradient 59.7 mmHg AV Velocity Time Integral 122.7 cm LVOT Peak Velocity 139.0 cm/s LVOT Peak Gradient 7.7 mmHg AV Area Cont Eq pk 0.9 cm MR Peak Velocity 407.5 cm/s MR Peak Gradient 66.4 mmHg Mitral E Point Velocity 168.0 cm/s Mitral A Point Velocity 85.1 cm/s Mitral E to A Ratio 2.0 LV E' Lateral Velocity 5.2 cm/s Mitral E to LV E' Lateral Ratio 32.1 LV E' Septal Velocity 3.7 cm/s Mitral E to LV E' Septal Ratio 45.4 TR Peak Velocity 419.0 cm/s TR Peak Gradient 70.2 mmHg Right Atrial Pressure 10.0 mmHg Pulmonary Artery Systolic Pressu 80.2 mmHg Right Ventricular Systolic Press 80.2 mmHg PV Peak Velocity 147.0 cm/s PV Peak Gradient 8.6 mmHg FINDINGS LEFT VENTRICLE The left ventricular systolic function is moderately reduced with an estimated ejection fraction in the range of 40-45%. Mild concentric left ventricular hypertrophy. Moderately dilated left ventricle. RIGHT VENTRICLE Normal right ventricular size and systolic function. LEFT ATRIUM The left atrial size is mildly dilated. RIGHT ATRIUM The right atrial size is normal. ATRIAL SEPTUM Normal atrial septal thickness without atrial level shunting by limited color doppler interrogation. AORTA The aortic root and proximal ascending aorta are normal in size on limited imaging. MITRAL VALVE Mild mitral annular calcification. Mild mitral valve regurgitation. AORTIC VALVE Trileaflet aortic valve. Severe aortic valve stenosis. Aortic valve area is 0.89 cm. Aortic valve mean gradient is 59.7 mmHg. TRICUSPID VALVE There is severe tricuspid regurgitation. The estimated pulmonary arterial pressure is 80.2 mmHg. PULMONARY VALVE No pulmonary valve regurgitation or stenosis. VESSELS The inferior vena cava is normal in size. PERICARDIUM No pericardial effusion. Chance Braga MD, FACC, [facility] [place] (Electronically Signed) Final Date:17 January 2018 13:33
[2018-01-17] MEDS: ACETAMINOPHEN/HYDROcodone 325 MG/5 MG TAB PO PRN (16:18)
--- NOTE | 2018-01-17 17:38 | HHI.CCPN ---
Subjective Remarks/Hospital Course 67-year-old male with past medical history of end-stage renal disease who has been on hemodialysis approximately 7 years and receives dialysis from Dr. Dickinson on T/R/S schedule. He also has diabetes mellitus, hypertension, aortic regurgitation, aortic stenosis. He has a bioprosthetic aortic valve with severe prosthetic stenosis and has been undergoing workup for redo valve to be performed by Dr. Bowers. On 01/11/18 he underwent cardiac catheterization as part of the workup, performed at [facility] by Dr. Cox. Reports states minimal coronary disease. He began having bruising and swelling of his right groin on 01/13/18 and this progressed over the last couple of days. The pain was becoming worse and unbearable and so he presented to [facility] emergency department. CTA demonstrated extravasation from right common femoral artery pseudoaneurysm with leakage into a large medial thigh hematoma. Vascular surgery was consulted and Dr. Lux has evaluated and plans to take patient to OR in the morning. Patient 's hemoglobin is 6.5. Blood pressure is 94/43. Heart rate is in the 60s. His potassium is 7.3. Dr. Vieira has ordered medical treatment of hyperkalemia including albuterol nebs, Kayexalate 15 g, insulin 10 units IV, 1 amp of D50, calcium gluconate 1 g, bicarbonate 50 mEq IV. I have contacted Dr. Enrique who will proceed with emergent dialysis in order to stabilize patient for anticipated OR. Patient's son states he underwent dialysis at the outpatient center on 01/11/18 and on 01/13/1801/17: S/P repair right common femoral artery false aneurysm repair. HD is arranged. Transfer to floor. Objective Vital Signs Date Time Temp Pulse Resp B/P (MAP) Pulse Ox O2 Delivery O2 Flow Rate FiO2 01/17/18 15:00 80 01/17/18 12:30 22 01/17/18 12:00 98.8 101/54 (70) 98 01/17/18 07:00 Room Air 01/16/18 20:15 2 Intake and Output 01/17/18 01/17/18 01/18/18 08:00 16:00 00:00 Output Total 260 ml Balance -260 ml Result Diagram: 01/17/18 0435 01/17/18 0435 Objective Remarks GENERAL: Well-nourished, well-developed [place]-speaking patient. Right foot is warm with palpable DP pulse and [employer] OPERATOR pulse. Left upper sternal a fistula with palpable thrill. HEAD: Atraumatic. Normocephalic. EYES: R pupil 2mm and reactive. L pupil 4 mm and nonreactive. No scleral icterus. No injection or drainage. ENT: No nasal bleeding or discharge. Mucous membranes pink and moist. NECK: Trachea midline. Airway widely patent. CARDIOVASCULAR: Regular rate and rhythm. 4/6 systolic murmur right sternal border and 3/6 diastolic murmur left lower sternal border. No JVD. RESPIRATORY: Breathing comfortably with no accessory muscle use. On room air. Clear to auscultation bilaterally. No wheezes or crackles. GASTROINTESTINAL: Abdomen soft, non-tender, nondistended. Bowel sounds present. No guarding. NEUROLOGICAL: Awake and alert. Motor grossly within normal limits. [place]- speaking. Speech clear in [place]. A/P Assessment and Plan NEURO: Pain Lortab as needed for pain Morphine as needed for breakthrough pain. RESP: On room air. CV: Hypertension Aortic stenosis status post aortic valve replacement now with severe prosthetic stenosis. Right femoral artery pseudoaneurysm LBBB Undergoing workup for redo AVR by Dr. Bowers Cardiac catheterization 01/11/[address] Kenny Lux repaired in OR 01/16. GI: NPO FEN/RENAL: ESRD Severe hyperkalemia Secondary hyperparathyroidism Received calcium, bicarbonate 50 mEq, insulin 10 units IV, amp D50, albuterol, Kayexalate in the emergency department. Contacted Dr. Enrique who will proceed with emergent HD. Patient's primary client service supervisor is Dr. Dickinson in [place]. Has left upper extremity fistula which has recently been functioning following intervention by Dr. Dannie Verdugo. Continue Renvela 800 mg by mouth 3 times a day. Sensipar 60 po daily Patient still makes some urine. ID: Monitor for signs and symptoms of infection HEME: Acute blood loss anemia Thrombocytopenia Transfused 3 units packed red cells with hemodialysis. Type and hold has been ordered for OR per Dr. Ramon Riojas unremarkable. Platelet count greater than 100. No antiplatelet or anticoagulant. Serial hemoglobin every 6 hours and transfuse as indicated for hemoglobin less than 8 or hypotension. Epogen 10,000 units with dialysis. ENDO: Diabetes mellitus Hold tradjenta 5 mg po daily Monitor bedside glucose. And initiate low-dose insulin sliding scale. PROPH: SCDs for DVT prophylaxis. Pharmacologic DVT prophylaxis contraindicated due to acute blood loss from pseudoaneurysm, can be initiated postoperatively when appropriate per vascular surgery. Famotidine for stress ulcer prophylaxis. ACCESS: Peripheral IV providing adequate access at this time. Left upper extremity fistula Full code Discussed with Dr. Lux. Discussed with Dr. Enrique. Discussed with son at bedside. Overall impression: S/P repair 01/16 of right groin aneurysm post cath at [facility]. Anemia corrected and HD is arranged with Dr. Enrique. Dav Dunlap MD Jan 17, 2018 17:38
[2018-01-18] MEDS: ACETAMINOPHEN/HYDROcodone 325 MG/5 MG TAB PO PRN ×3 (02:13→19:20)
[2018-01-18 06:19] VITALS: BP 98/47; PULSE 88; RESP 18; TEMP 98.8; O2SAT 94
[2018-01-18] MEDS: INSULIN ASPART SUPPLEMENTAL SCALE SQ SCH ×4 (07:19→19:26)
[2018-01-18 08:00] VITALS: BP 91/44; PULSE 89; RESP 18; TEMP 99; O2SAT 99
[2018-01-18] MEDS: DOCUSATE SODIUM 50 MG/SENNA 8.6 MG TAB PO SCH ×3 (09:00→19:19)
[2018-01-18] MEDS: FAMOTIDINE 20 MG/2 ML VIAL IV PUSH SCH ×2 (09:00→20:43)
[2018-01-18] MEDS: SODIUM CHLORIDE 0.9% FLUSH 10 ML FLUSH IV FLUSH SCH ×2 (09:00→21:41)
[2018-01-18] MEDS: FAMOTIDINE 20 MG TAB PO SCH ×2 (09:00→19:20)
--- NOTE | 2018-01-18 09:28 | HHI.NPPN ---
Subjective General Problems: Anemia Renal Failure: Chronic History of Present Illness This is a 67 y/o male dialysis patient from [place]. Typical TTS HD. He had a cardiac cath via right groin on at [facility], was discharged Monday. He noticed bruising the next day but was unable to reach the physician. He presented here with large hematoma and severe anemia. In addition his potassium was 7.3, thus he was dialyzed urgently late last night. We were consulted to assist with dialysis management. He has been seen by vascular, imaging shows femoral leak, is to go to OR today. Per the , he still makes some urine. His blood pressure is stable. Additional Remarks Resting comfortably. Denies any SOB. No edema (Linda Hernandez) Objective Data Data Vital Signs Date Time Temp Pulse Resp B/P (MAP) Pulse Ox O2 Delivery O2 Flow Rate FiO2 01/18/18 08:00 99.0 89 18 91/44 (60) 99 01/18/18 06:19 98.8 88 18 98/47 (64) 94 01/17/18 23:18 98.3 85 18 99/59 (72) 93 01/17/18 20:59 97 Nasal Cannula 1.00 01/17/18 20:00 99.5 82 18 98/50 (66) 93 01/17/18 20:00 94 Nasal Cannula 1.00 01/17/18 17:18 22 01/17/18 16:00 98.2 80 18 99/50 (66) 94 01/17/18 15:00 80 01/17/18 12:30 22 01/17/18 12:00 98.8 77 19 101/54 (70) 98 (Linda Hernandze) -: 01/17/18 0435 01/17/18 0435 Tubes & Lines Comment SINCERE drain (Linda Hernandez) Physical Exam General Appearance: Well Developed, No Acute Distress, Comfortable (Linda Hernandez) Throat Throat Exam: Oral Mucosa Ross & Moist (Linda Hernandez) Pulmonary Resp Exam: Clear Bilaterally, Breath Sounds Equal (Linda Hernandez) Cardiology CV Exam: Regular, Normal Sinus Rhythm (Linda Hernandez) Gastrointestinal/Abdomen GI Exam: Soft, Non-Tender (Linda Hernandez) Musculoskeletal MS Exam: Joints Intact, Normal Tone, Unable to Ambulate (Linda Hernandez) Integumentary Skin Exam: Warm, Dry, Intact (Linda Hernandez) Extremeties Extremities Exam: Pedal Pulses Palpable (Linda Hernandez) Neurologic Neuro Exam: Alert, Awake, Oriented, Speech Clear, Moving All Extremities (Linda Hernandez) Psychiatric Psych Exam: Appropriate Responses (Linda Hernandez) Assessment/Plan Discussed Condition With: Patient Assessment Summary: Anemia of CKD, End Stage Renal Disease Electrolyte Assessment: Hypocalcemia Problem List: (1) ESRD (end stage renal disease) ICD Codes: N18.6 - End stage renal disease Plan: TTS HD AVF left arm is patent Follows in [place] with operator maintainer. Has outpatient arrangements if discharged. Avoid IVF, gadolinium is contraindicated Monitor renal profile. High protein diet encouraged. Anemia with HGB of 7.8 Epogen with dialysis Seen during dialysis (2) Hyperkalemia, diminished renal excretion ICD Codes: E87.5 - Hyperkalemia Plan: Improved with HD (3) Hematoma ICD Codes: T14.8XXA - Other injury of unspecified body region, initial encounter Plan: s/p cardiac cath, has femoral leak Vascular following, s/p surgical repair Continue supportive care, transfuse if needed SINCERE drain care (4) Anemia ICD Codes: D64.9 - Anemia, unspecified Plan: On epogen with HD Transfused Not iron deficient (5) Hypocalcemia ICD Codes: E83.51 - Hypocalcemia Plan: PTH is acceptable. Off Sensipar Plan (Linda Hernandez) Problem List: (1) ESRD (end stage renal disease) ICD Codes: N18.6 - End stage renal disease Plan: TTS HD AVF left arm is patent Follows in [place] with operator maintainer. Has outpatient arrangements if discharged. Avoid IVF, gadolinium is contraindicated Monitor renal profile. High protein diet encouraged. Anemia with HGB of 7.8 Epogen with dialysis Seen during dialysis. Patient seen and examined, agree with above. Follow the Hgb. (2) Hyperkalemia, diminished renal excretion ICD Codes: E87.5 - Hyperkalemia Plan: Improved with HD (3) Hematoma ICD Codes: T14.8XXA - Other injury of unspecified body region, initial encounter Plan: s/p cardiac cath, has femoral leak Vascular following, s/p surgical repair Continue supportive care, transfuse if needed SINCERE drain care (4) Anemia ICD Codes: D64.9 - Anemia, unspecified Plan: On epogen with HD Transfused Not iron deficient (5) Hypocalcemia ICD Codes: E83.51 - Hypocalcemia Plan: PTH is acceptable. Off Sensipar (Pau Loco MD) Linda Hernandez Jan 18, 2018 09:28 Pau Loco MD Jan 18, 2018 14:43
[2018-01-18] MEDS: SEVELAMER CARBONATE 800 MG TAB PO SCH ×3 (13:00→17:15)
--- NOTE | 2018-01-18 16:12 | PD.CAR.PN ---
CVT Progress Note Subjective/Hospital Course: Patient seen consult dictated. To OR tomorrow. Thanks J 01/17/2018 Status post repair of the right common femoral artery and evacuation of pseudoaneurysm and a large hematoma of the right thigh Incision is clean and dry drainage from SINCERE from the hematoma site is serosanguineous Patient can transfer to floor at this time from my point 01/18/2018 Patient doing well at this time Excellent distal pulses by Doppler Feet warm Groin incision clean and dry SINCERE drainage about 180 cc in 24 hours Change dressing daily continue care nothing to add from surgical point Objective: Vital Signs Date Time Temp Pulse Resp B/P (MAP) Pulse Ox O2 Delivery O2 Flow Rate FiO2 01/18/18 08:00 99.0 89 18 91/44 (60) 99 01/18/18 06:19 98.8 88 18 98/47 (64) 94 01/17/18 23:18 98.3 85 18 99/59 (72) 93 01/17/18 20:59 97 Nasal Cannula 1.00 01/17/18 20:00 99.5 82 18 98/50 (66) 93 01/17/18 20:00 94 Nasal Cannula 1.00 01/17/18 17:18 22 Result Diagram: 01/17/18 0435 01/17/18 0435 Delio Lux MD Jan 18, 2018 16:12
[2018-01-18 16:20] VITALS: BP 98/51; PULSE 94; RESP 18; TEMP 100; O2SAT 93
[2018-01-18] MEDS ORDERED: LACTULOSE SYRUP 20 GM/30 ML CUP PO ONE (16:45)
[2018-01-18 19:27] VITALS: BP 106/54; PULSE 92; RESP 18; TEMP 100; O2SAT 100
[2018-01-18 20:00] VITALS: BP 103/48; PULSE 91; PULSE 92; RESP 18; TEMP 98.7; O2SAT 96
[2018-01-18] MEDS: MORPHINE SULFATE 2 MG/ML INJ IV PUSH PRN (21:41)
[2018-01-18] MEDS ORDERED: BISACODYL 10 MG SUPP RECTAL ONE (23:30)
--- NOTE | 2018-01-18 23:36 | HHI.PR ---
Subjective Remarks 67-year-old male with past medical history of end-stage renal disease who has been on hemodialysis approximately 7 years and receives dialysis from Dr. Dickinson on T/R/S schedule. He also has diabetes mellitus, hypertension, aortic regurgitation, aortic stenosis. He has a bioprosthetic aortic valve with severe prosthetic stenosis and has been undergoing workup for redo valve to be performed by Dr. Bowers. On 01/11/18 he underwent cardiac catheterization as part of the workup, performed at [facility] by Dr. Cox. Reports states minimal coronary disease. He began having bruising and swelling of his right groin on 01/13/18 and this progressed over the last couple of days. The pain was becoming worse and unbearable and so he presented to [facility] emergency department. CTA demonstrated extravasation from right common femoral artery pseudoaneurysm with leakage into a large medial thigh hematoma. Vascular surgery was consulted and Dr. Lux has evaluated and plans to take patient to OR in the morning. Patient 's hemoglobin is 6.5. Blood pressure is 94/43. Heart rate is in the 60s. His potassium is 7.3. Dr. Vieira has ordered medical treatment of hyperkalemia including albuterol nebs, Kayexalate 15 g, insulin 10 units IV, 1 amp of D50, calcium gluconate 1 g, bicarbonate 50 mEq IV. I have contacted Dr. Enrique who will proceed with emergent dialysis in order to stabilize patient for anticipated OR. Patient's son states he underwent dialysis at the outpatient center on 01/11/18 and on 01/13/1801/17: S/P repair right common femoral artery false aneurysm repair. HD is arranged. Transfer to floor. 01/18. Patient seen today using dielectric machine operator over the phone. Patient denies any chest pain or shortness of breath. Denies any nausea or vomiting. He reports chronic back pain. Patient denies constipation. Patient seen with nursing present. Later nursing discussed with patient's son over the phone who tells her that patient is constipated. Lactate is ordered. Objective Vital Signs Date Time Temp Pulse Resp B/P (MAP) Pulse Ox O2 Delivery O2 Flow Rate FiO2 01/18/18 20:00 98.7 92 18 103/48 (66) 96 01/18/18 19:27 100.0 92 18 106/54 (71) 100 01/18/18 16:20 100.0 94 18 98/51 (67) 93 01/18/18 08:00 99.0 89 18 91/44 (60) 99 01/18/18 06:19 98.8 88 18 98/47 (64) 94 I/O 01/18/18 01/18/18 01/18/18 01/19/18 01/19/18 01/19/18 07:00 15:00 23:00 07:00 15:00 23:00 Intake Total 460 ml 240 ml Output Total 55 ml 3090 ml Balance 405 ml -2850 ml Intake Oral 360 ml 240 ml IV Total 100 ml Output Urine Total 5 ml 0 ml Drainage Total 50 ml 90 ml Hemodialysis 3000 ml # Bowel Movements 0 0 Result Diagram: 01/17/1843401/17/18434 Objective Remarks GENERAL: patient lying in bed. Appears comfortable. SKIN: Warm and dry. HEAD: Normocephalic. EYES: No scleral icterus. No injection or drainage. NECK: Supple, trachea midline. No JVD. CARDIOVASCULAR: Regular rate and rhythm without murmurs, gallops, or rubs. RESPIRATORY: Breath sounds equal bilaterally. No accessory muscle use. GASTROINTESTINAL: Abdomen soft, non-tender, nondistended. MUSCULOSKELETAL: No cyanosis, or edema. BACK: Nontender without obvious deformity. No CVA tenderness. A/P Assessment and Plan //Pain Lortab as needed for pain Morphine as needed for breakthrough pain. RESP: On room air. CV: //Hypertension //Aortic stenosis status post aortic valve replacement now with severe prosthetic stenosis. //Right femoral artery pseudoaneurysm //LBBB Undergoing workup for redo AVR by Dr. Bowers Cardiac catheterization 01/11/[address] Kenny Lux repaired in OR 01/16. = 01/18. Patient with hypotension with systolics in the 90s. With advanced aortic stenosis I have consulted cardiology to make sure that patient is optimized for eventual hospital discharge versus possible need for surgery here prior to discharge. Appreciate cardiology assistance. Outside records requested. GI: NPO FEN/RENAL: //ESRD //Severe hyperkalemia //Secondary hyperparathyroidism Received calcium, bicarbonate 50 mEq, insulin 10 units IV, amp D50, albuterol, Kayexalate in the emergency department. Contacted Dr. Enrique who will proceed with emergent HD. Patient's primary plant engineering manager is Dr. Dickinson in [place]. Has left upper extremity fistula which has recently been functioning following intervention by Dr. Dannie Verdugo. Continue Renvela 800 mg by mouth 3 times a day. Sensipar 60 po daily Patient still makes some urine. ID: Monitor for signs and symptoms of infection HEME: //Acute blood loss anemia //Thrombocytopenia Transfused 3 units packed red cells with hemodialysis. Type and hold has been ordered for OR per Dr. Ramon Riojas unremarkable. Platelet count greater than 100. No antiplatelet or anticoagulant. Serial hemoglobin every 6 hours and transfuse as indicated for hemoglobin less than 8 or hypotension. Epogen 10,000 units with dialysis. ENDO: //Diabetes mellitus Hold tradjenta 5 mg po daily Monitor bedside glucose. And initiate low-dose insulin sliding scale. = Blood sugars acceptable on current regimen. PROPH: SCDs for DVT prophylaxis. Pharmacologic DVT prophylaxis contraindicated due to acute blood loss from pseudoaneurysm, can be initiated postoperatively when appropriate per vascular surgery. Famotidine for stress ulcer prophylaxis. ACCESS: Peripheral IV providing adequate access at this time. Left upper extremity fistula Discharge Planning patient with severe aortic stenosis here for complication of outside catheterization pending cardiology Evaluation pending cardiothoracic clearance as well. Ubaldo Fatima MD Jan 18, 2018 23:36
[2018-01-18 23:57] VITALS: PULSE 97
[2018-01-19 00:30] VITALS: BP 120/60; PULSE 97; RESP 19; TEMP 98.2; O2SAT 95
[2018-01-19] MEDS: ACETAMINOPHEN/HYDROcodone 325 MG/5 MG TAB PO PRN ×4 (01:07→19:30)
[2018-01-19 04:00] VITALS: PULSE 95
[2018-01-19] MEDS: CHLORHEXIDINE GLUCONATE 2 % 1 PACK (2 CLOTHS) TOP SCH (04:00)
[2018-01-19 04:35] VITALS: BP 116/56; PULSE 98; RESP 19; TEMP 99.9; O2SAT 97
[2018-01-19 06:10] LABS: AUTOMATED NEUTROPHIL # 19.7 TH/MM3 (1.8-7.7); BASOPHIL # 0.1 TH/MM3 (0-0.2); BASOPHIL % 0.2 % (0.0-2.0); EOSINOPHIL % 0.1 % (0.0-4.0); HEMATOCRIT 25.9 % (39.0-51.0); HEMOGLOBIN 8.9 GM/DL (13.0-17.0); LYMPH % 1.5 % (9.0-44.0); LYMPHOCYTE # 0.3 TH/MM3 (1.0-4.8); MEAN CELL VOLUME 96.1 FL (80.0-100.0); MEAN CORPUSCULAR HEMOGLOBIN 32.9 PG (27.0-34.0); MEAN CORPUSCULAR HGB CONC 34.2 % (32.0-36.0); MEAN PLATELET VOLUME 9.7 FL (7.0-11.0); MONOCYTE # 1.1 TH/MM3 (0-0.9); NEUT % 93.2 % (16.0-70.0); PLATELET COUNT 174 TH/MM3 (150-450); RED BLOOD COUNT 2.69 MIL/MM3 (4.50-5.90); RED CELL DISTRIBUTION WIDTH 16.9 % (11.6-17.2); WHITE BLOOD COUNT 21.2 TH/MM3 (4.0-11.0)
[2018-01-19 08:00] VITALS: BP 108/54; PULSE 101; RESP 17; TEMP 99.8; O2SAT 91
[2018-01-19] MEDS: INSULIN ASPART SUPPLEMENTAL SCALE SQ SCH ×3 (08:00→17:00)
[2018-01-19] MEDS: DOCUSATE SODIUM 50 MG/SENNA 8.6 MG TAB PO SCH (08:22)
[2018-01-19] MEDS: SEVELAMER CARBONATE 800 MG TAB PO SCH ×3 (08:22→18:00)
[2018-01-19] MEDS: FAMOTIDINE 20 MG TAB PO SCH (09:00)
[2018-01-19] MEDS: FAMOTIDINE 20 MG/2 ML VIAL IV PUSH SCH (09:00)
[2018-01-19] MEDS: SODIUM CHLORIDE 0.9% FLUSH 10 ML FLUSH IV FLUSH SCH (09:00)
[2018-01-19 09:39] LABS: BANDS 33 % (0-6); CORRECTED NUCLEATED RBC 4 /100 WBC (0-0); LYMPHOCYTES 2 % (9-44); NEUTROPHIL # MANUAL DIFF 20.8 TH/MM3 (1.8-7.7); NUCLEATED RED BLOOD CELL 4 (0-0); POLYS (SEG NEUTROPHILS) 65 % (16-70)
[2018-01-19 09:40] LABS: POLYCHROMASIA 2.2 % (0.0-1.9)
[2018-01-19 11:47] VITALS: BP 111/51; PULSE 66; RESP 17; TEMP 99.2; O2SAT 100
--- NOTE | 2018-01-19 12:19 | HHI.NPPN ---
Subjective General Problems: Anemia Renal Failure: Chronic History of Present Illness This is a 67 y/o male dialysis patient from [place]. Typical TTS HD. He had a cardiac cath via right groin on at [facility], was discharged Monday. He noticed bruising the next day but was unable to reach the physician. He presented here with large hematoma and severe anemia. In addition his potassium was 7.3, thus he was dialyzed urgently late last night. We were consulted to assist with dialysis management. He has been seen by vascular, imaging shows femoral leak, is to go to OR today. Per the , he still makes some urine. His blood pressure is stable. Additional Remarks Patient is alert, no SOB, has pain in Rt. Groin area. Objective Data Data Vital Signs Date Time Temp Pulse Resp B/P (MAP) Pulse Ox O2 Delivery O2 Flow Rate FiO2 01/19/18 11:47 99.2 66 17 111/51 (71) 100 01/19/18 08:00 99.8 101 17 108/54 (72) 91 01/19/18 04:35 99.9 98 19 116/56 (76) 97 01/19/18 04:00 95 01/19/18 00:30 98.2 97 19 120/60 (80) 95 01/18/18 23:57 97 01/18/18 20:00 91 01/18/18 20:00 98.7 92 18 103/48 (66) 96 01/18/18 19:27 100.0 92 18 106/54 (71) 100 01/18/18 16:20 100.0 94 18 98/51 (67) 93 -: 01/19/18 0545 01/17/18 0435 Tubes & Lines Comment SINCERE drain Physical Exam General Appearance: Well Developed, No Acute Distress, Comfortable Throat Throat Exam: Oral Mucosa Benkelman & Moist Pulmonary Resp Exam: Clear Bilaterally, Breath Sounds Equal Cardiology CV Exam: Regular, Normal Sinus Rhythm Gastrointestinal/Abdomen GI Exam: Soft, Non-Tender Musculoskeletal MS Exam: Joints Intact, Normal Tone, Unable to Ambulate Integumentary Skin Exam: Warm, Dry, Intact Extremeties Extremities Exam: Pedal Pulses Palpable Neurologic Neuro Exam: Alert, Awake, Oriented, Speech Clear, Moving All Extremities Psychiatric Psych Exam: Appropriate Responses Assessment/Plan Discussed Condition With: Patient Assessment Summary: Anemia of CKD, End Stage Renal Disease Electrolyte Assessment: Hypocalcemia Problem List: (1) ESRD (end stage renal disease) ICD Codes: N18.6 - End stage renal disease Plan: TTS HD AVF left arm is patent Follows in [place] with 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 Has outpatient arrangements if discharged. Avoid IVF, gadolinium is contraindicated Monitor renal profile. High protein diet encouraged. Anemia with HGB of 7.8 Epogen with dialysis HD to continue TTS. (2) Hyperkalemia, diminished renal excretion ICD Codes: E87.5 - Hyperkalemia Plan: Improved with HD (3) Hematoma ICD Codes: T14.8XXA - Other injury of unspecified body region, initial encounter Plan: s/p cardiac cath, has femoral leak Vascular following, s/p surgical repair Continue supportive care, transfuse if needed SINCERE drain care. Vascular surgery following. (4) Anemia ICD Codes: D64.9 - Anemia, unspecified Plan: On epogen with HD Transfused Not iron deficient (5) Hypocalcemia ICD Codes: E83.51 - Hypocalcemia Plan: PTH is acceptable. Off Sensipar Plan Pau Loco MD Jan 19, 2018 12:19
--- NOTE | 2018-01-19 12:31 | MB ---
cc: GERARDO MORALES DO DATE OF CONSULTATION 01/18/2018 REASON FOR CONSULTATION Aortic stenosis HISTORY OF PRESENT ILLNESS Ravinder Moran is a pleasant 67-year-old male who sees my partner Dr. Cox in the office and presented to [facility] emergency room on January 15, 2018 due to groin pain and bruising. The patient is Romanian-speaking and so much of the history is taken from the family, as well as the chart. The patient underwent workup for severe prosthetic aortic valve stenosis by Dr. Cox at [facility] on January 11, 2018 with a cardiac catheterization. Further reports he had minimal coronary artery disease. He was sent home and started noticing bruising and swelling of his right groin on January 13, 2018 which progressed over the next few days. Pain became so worsen and unbearable that he presented to the emergency room. CTA demonstrated extravasation from his right common femoral artery pseudoaneurysm, as well as a medial thigh hematoma. Vascular surgery saw the patient and he underwent a right common femoral artery repair and evacuation of pseudoaneurysm with placement of a SINCERE drain. I was asked to see the patient due to the pseudoaneurysm as well as his aortic stenosis. Apparently the patient is scheduled to see Dr. Bowers for consideration of repeat AVR versus possible valve and valve TAVR. In speaking to the patient, he still has pain noted in his femoral area where surgery has been done. He denies current chest pain or shortness of breath. He does have some abdominal pain and states that he is constipated. PAST MEDICAL HISTORY 1. End-stage renal disease on hemodialysis Monday, , Monday. 2. Congestive heart failure 3. Diabetes mellitus 4. Hypertension 5. Mild coronary artery disease per report. PAST SURGICAL HISTORY 1. Cardiac catheterization (January 11, 2018) per report mild coronary artery disease. 2. Aortic valve replacement approximately 7 years ago with a bioprosthetic valve. 3. Left upper extremity fistula (7 years ago). 4. Skin cancer removal. 5. Intervention of his left upper extremity fistula. ALLERGIES HEPARIN MEDICATIONS 1. Azithromycin 250 mg as prescribed 2. Coreg 12.5 mg daily 3. Renvela 800 mg t.i.d. 4. Lasix 40 mg daily 5. Mucinex one tablet b.i.d. as needed 6. Tradjenta 5 mg daily 7. Sensipar 60 mg daily FAMILY HISTORY Denies premature coronary artery disease or sudden cardiac within the family. SOCIAL HISTORY The patient lives in [place]. He is a lifelong nonsmoker. He used to drink occasionally, but not over the past few years. Denies drug abuse. REVIEW OF SYSTEMS 14-systems were reviewed as above. Pertinent positives and negatives as above, otherwise negative. PHYSICAL EXAMINATION VITAL SIGNS: Temperature 99.0, heart rate 89, blood pressure 91/44, respirations 18, pulse ox 99% on one liter. GENERAL: The patient appears well in no acute distress, alert awake and oriented x3. HEAD, EYES, EARS, NOSE, AND THROAT: Extraocular muscles intact. Mucous membranes moist. NECK: Supple. No JVD at 45 degrees. No carotid bruits bilaterally. Carotid upstroke is brisk in nature. HEART: Regular rate and rhythm. Positive first and second heart sound with a 3/6 crescendo-decrescendo murmur to the right sternal border. LUNGS: Clear to auscultation bilaterally. No wheezes, rales or rhonchi. ABDOMEN: Soft, nontender, and nondistended. No organomegaly noted. Right femoral area is covered with a bandage with a SINCERE drain with serosanguineous fluid. EXTREMITIES: No clubbing, cyanosis or edema noted. NEUROLOGIC: No focal deficits. SKIN: Warm, dry and intact. OSTEOPATHIC: No kyphoscoliosis, lordosis or paraspinal tender points. LABORATORY FINDINGS Hemoglobin 7.8, hematocrit 22.6, platelets 121. Potassium 4.3, BUN 48, creatinine 6.65. Electrocardiogram (January 15, 2018 at 1835) sinus rhythm with first degree AV block, left axis deviation, left bundle branch block. IMPRESSIONS 1. Severe aortic stenosis of previous bioprosthetic aortic valve. 2. Right femoral artery pseudoaneurysm status post repair with SINCERE drain placement. 3. History of hypertension. 4. End-stage renal disease on hemodialysis. 5. Anemia due to acute blood loss. 6. Diabetes mellitus. RECOMMENDATIONS 1. Mr. Jeronimo presented post complications from cardiac catheterization. He has undergone repair of his right femoral pseudoaneurysm and evacuation of hematoma per Dr. Lux. 2. We will continue to follow his hemoglobin level and he should have a repeat hemoglobin in the morning as it has continued to trend down. 3. Due to his hypotension, his carvedilol will continue to be held. 4. As far as his aortic stenosis goes, no intervention is needed at this time. Most likely he will be discharged home at the discretion of the primary team as well as vascular surgery when stable and follow up with Dr. Bowers for further recommendations. 5. We will continue to follow during his hospital course and further recommendations will be made. Thank you for allowing me to see Ravinder Jeronimo. If there are any questions, please do not hesitate to call. Gerardo Morales DO VGP/DJL /1:04 AM /12:13 PM
[2018-01-19 16:00] VITALS: BP 97/49; PULSE 95; RESP 17; TEMP 99.1; O2SAT 100
--- NOTE | 2018-01-19 17:50 | PD.CARD.PN ---
Subjective Subjective Remarks Patient was seen earlier today, late entry Discussed with patient and his daughter through security controls assessor system Overall no chest pain/SOB Right groin and back pain Objective Medications Current Medications Medications (Trade) Dose Ordered Sig/Misti Route Start Time Stop Time Status Last Admin (Renvela) 800 mg TID PO 01/16/18 09:00 01/19/18 12:48 (Bertrand 5-325 Mg) 1 tab Q6H PRN PO 01/15/18 22:30 01/19/18 12:49 (Morphine Inj) 2 mg Q3H PRN IV PUSH 01/15/18 22:30 01/18/18 21:41 (Morphine Inj) 4 mg Q3H PRN IV PUSH 01/15/18 22:30 01/17/18 12:25 (NS Flush) 2 ml UNSCH PRN IV FLUSH 01/15/18 22:45 01/18/18 02:09 (NS Flush) 2 ml BID IV FLUSH 01/16/18 09:00 01/19/18 09:00 (Tylenol) 650 mg Q6H PRN PO 01/15/18 22:45 (Pepcid Inj) 20 mg Q12HR IV PUSH 01/16/18 09:00 01/16/18 21:00 (Pepcid) 20 mg Q12HR PO 01/16/18 09:00 01/19/18 09:00 (Zofran Inj) 4 mg Q6H PRN IV PUSH 01/15/18 22:45 (Albuterol Neb) 2.5 mg Q2HR NEB PRN INH 01/15/18 22:45 Miscellaneous Information 1 Q361D XX 01/15/18 22:45 01/15/18 23:45 (Chlorhexidine 2% Cloth) 3 pack Taper DAILY@04 TOP 01/16/18 04:00 01/12/19 03:59 01/17/18 04:05 (Chlorhexidine 2% Cloth) 3 pack UNSCH PRN TOP 01/15/18 22:45 (Milk Of Magnesia Liq) 30 ml Q12H PRN PO 01/15/18 22:45 (Senokot) 17.2 mg Q12H PRN PO 01/15/18 22:45 (Dulcolax Supp) 10 mg DAILY PRN RECTAL 2/19/18 22:45 01/18/18 23:42 (Lactulose Liq) 30 ml DAILY PRN PO 01/15/18 22:45 Sodium Chloride 1,000 ml @ 0 mls/hr TITRATE PRN OTHER 01/16/18 01:00 Sodium Chloride 1,000 ml @ 200 mls/hr Q5H PRN OTHER 01/16/18 01:00 Sodium Chloride 200 ml @ 0 mls/hr UNSCH PRN IV 01/16/18 01:00 (Mannitol Inj) 12.5 gm UNSCH PRN IV PUSH 01/16/18 01:00 Albumin Human 100 ml @ 60 mls/hr UNSCH PRN IV 01/16/18 01:00 (NS Flush) 5 ml UNSCH PRN IV FLUSH 01/16/18 01:00 (Gentamicin Inj) 10 mg UNSCH PRN OTHER 01/16/18 01:00 (Gelfoam 12 Mm/7 Mm Top) 1 foam UNSCH PRN TOPICAL 01/16/18 01:00 (Zofran Inj) 4 mg UNSCH PRN IV PUSH 01/16/18 01:00 (Tylenol) 650 mg UNSCH X1 PRN PO 01/16/18 01:00 01/23/18 00:59 (Benadryl) 25 mg UNSCH PRN PO 01/16/18 01:00 01/17/18 16:18 (Nitrostat Sl) 0.4 mg UNSCH PRN SL 01/16/18 01:00 (Catapres) 0.1 mg UNSCH PRN PO 01/16/18 01:00 (Epogen Inj) 10,000 units WITH DIALYSIS IV 01/16/18 10:00 01/18/18 11:14 (D50w (Vial) Inj) 50 ml UNSCH PRN IV PUSH 01/16/18 10:15 (Glucagon Inj) 1 mg UNSCH PRN OTHER 01/16/18 10:15 (NovoLOG SUPPLEMENTAL SCALE) 1 ACHS SLIDING SCALE SQ 01/16/18 12:00 (Tasneem-Colace) 2 tab BID PO 01/18/18 21:00 01/19/18 08:22 Vital Signs / I&O Vital Signs Date Time Temp Pulse Resp B/P (MAP) Pulse Ox O2 Delivery O2 Flow Rate FiO2 01/19/18 16:00 99.1 95 17 97/49 (65) 100 01/19/18 11:47 99.2 66 17 111/51 (71) 100 01/19/18 08:00 99.8 101 17 108/54 (72) 91 01/19/18 04:35 99.9 98 19 116/56 (76) 97 01/19/18 04:00 95 01/19/18 00:30 98.2 97 19 120/60 (80) 95 01/18/18 23:57 97 01/18/18 20:00 91 01/18/18 20:00 98.7 92 18 103/48 (66) 96 01/18/18 19:27 100.0 92 18 106/54 (71) 100 I/O 01/18/18 01/18/18 01/18/18 01/19/18 01/19/18 01/19/18 07:00 15:00 23:00 07:00 15:00 23:00 Intake Total 460 ml 240 ml 240 ml 240 ml 480 ml Output Total 55 ml 3090 ml 0 ml 0 ml 50 ml Balance 405 ml -2850 ml 240 ml 240 ml 430 ml Intake Oral 360 ml 240 ml 240 ml 240 ml 480 ml IV Total 100 ml Output Urine Total 5 ml 0 ml 0 ml 0 ml Drainage Total 50 ml 90 ml 50 ml Hemodialysis 3000 ml # Bowel Movements 0 0 0 1 0 Physical Exam GENERAL: NAD, AAOx3 SKIN: Warm and dry. HEAD: Atraumatic. Normocephalic. EYES: Pupils equal and round. No scleral icterus. No injection or drainage. ENT: No nasal bleeding or discharge. Mucous membranes pink and moist. NECK: Trachea midline. No JVD. CARDIOVASCULAR: Regular rate and rhythm. 3/6 crescendo-decrescendo murmur to the RSB RESPIRATORY: No accessory muscle use. Clear to auscultation. Breath sounds equal bilaterally. GASTROINTESTINAL: Abdomen soft, non-tender, nondistended. Hepatic and splenic margins not palpable. MUSCULOSKELETAL: Extremities without clubbing, cyanosis, or edema. No obvious deformities. Right femoral with covering, distal pulses intact NEUROLOGICAL: Awake and alert. No obvious cranial nerve deficits. Motor grossly within normal limits. Five out of 5 muscle strength in the arms and legs. Normal speech. PSYCHIATRIC: Appropriate mood and affect; insight and judgment normal. Laboratory Laboratory Tests Test 2/23/18 05:45 White Blood Count 21.2 TH/MM3 Red Blood Count 2.69 MIL/MM3 Hemoglobin 8.9 GM/DL Hematocrit 25.9 % Mean Corpuscular Volume 96.1 FL Mean Corpuscular Hemoglobin 32.9 PG Mean Corpuscular Hemoglobin Concent 34.2 % Red Cell Distribution Width 16.9 % Platelet Count 174 TH/MM3 Mean Platelet Volume 9.7 FL Neutrophils (%) (Auto) 93.2 % Lymphocytes (%) (Auto) 1.5 % Monocytes (%) (Auto) 5.0 % Eosinophils (%) (Auto) 0.1 % Basophils (%) (Auto) 0.2 % Neutrophils # (Auto) 19.7 TH/MM3 Lymphocytes # (Auto) 0.3 TH/MM3 Monocytes # (Auto) 1.1 TH/MM3 Eosinophils # (Auto) 0.0 TH/MM3 Basophils # (Auto) 0.1 TH/MM3 CBC Comment AUTO DIFF Differential Total Cells Counted 100 Neutrophils % (Manual) 65 % Band Neutrophils % 33 % Lymphocytes % 2 % Neutrophils # (Manual) 20.8 TH/MM3 Nucleated Red Blood Cells 4 /100 WBC Differential Comment FINAL DIFF MANUAL Platelet Estimate NORMAL Platelet Morphology Comment NORMAL Polychromasia 2.2 % Assessment and Plan Problem List: (1) Femoral artery pseudo-aneurysm, right ICD Codes: I72.4 - Aneurysm of artery of lower extremity (2) Severe aortic stenosis ICD Codes: I35.0 - Nonrheumatic aortic (valve) stenosis (3) History of aortic valve replacement with bioprosthetic valve ICD Codes: Z95.3 - Presence of xenogenic heart valve (4) Hematoma ICD Codes: T14.8XXA - Other injury of unspecified body region, initial encounter (5) ESRD (end stage renal disease) ICD Codes: N18.6 - End stage renal disease (6) Anemia ICD Codes: D64.9 - Anemia, unspecified Assessment and Plan 1) Severe bioprosthetic aortic stenosis No plan for intervention at this time Evaluated by Dr. Bowers outpatient, will follow up on discharge 2) PSA after catheterization, s/p repair Pain at site, would defer to Dr. Lux 3) Con't to follow Hgb levels 4) Coreg held due to hypotension, if possible would restart before discharge 5) Dr. Blakely will be available over the weekend if needed Bradley Rodriguez DO Jan 19, 2018 17:49
--- NOTE | 2018-01-19 18:00 | HHI.FF ---
Face to Face Verification Diagnosis: (1) Femoral artery pseudo-aneurysm, right (2) ESRD (end stage renal disease) Physical Therapy Order: Evaluate and Treat Home Health Nursing Order: Wound care and dressing changes Nursing assessment with vital signs Instructions: right femoral leg wound. Block Breaker Operator Order: To Provide: Long range planning I have seen patient Ravinder Raymnod on 01/19/18. My clinical findings support the need for the requested home health care services because: Limited ability to care for self I certify that my clinical findings support that this patient is homebound because: Unsafe to leave home unassisted Ubaldo Fatima MD Jan 19, 2018 18:00
[2018-01-19] MEDS ORDERED: HYDR-3516 PO (18:13)
[2018-01-20] MEDS ORDERED: TRAZ1TAB14 PO (06:19)
--- NOTE | 2018-01-23 11:23 | HHI.DS ---
Discharge Summary Admission Date Jan 15, 2018 at 22:53 Discharge Date: Jan 19, 2018 Admitting Diagnosis Femoral artery injury post cardiac cath, anemia, elevated K, ESRD (1) ESRD on dialysis ICD Code: N18.6 - End stage renal disease; Z99.2 - Dependence on renal dialysis (2) Femoral artery pseudo-aneurysm, right ICD Code: I72.4 - Aneurysm of artery of lower extremity (3) Severe aortic stenosis ICD Code: I35.0 - Nonrheumatic aortic (valve) stenosis (4) Anemia ICD Code: D64.9 - Anemia, unspecified Procedures repair of right femoral artery pseudoaneurysm by cardiovascular surgery. Please see report. Brief History - From Admission This note is entered later. Patient originally seen and managed in ED. Patient is Amharic-speaking. Most history is obtained from his son. 67-year-old male with past medical history of end-stage renal disease who has been on hemodialysis approximately 7 years and receives dialysis from Dr. Dickinson on T/R/S schedule. He also has diabetes mellitus, hypertension, aortic regurgitation, aortic stenosis. He has a bioprosthetic aortic valve with severe prosthetic stenosis and has been undergoing workup for redo valve to be performed by Dr. Bowers. On 01/11/18 he underwent cardiac catheterization as part of the workup, performed at [facility] by Dr. Cox. Reports states minimal coronary disease. He began having bruising and swelling of his right groin on 01/13/18 and this progressed over the last couple of days. The pain was becoming worse and unbearable and so he presented to [facility] emergency department. CTA demonstrated extravasation fromright common femoral artery pseudoaneurysm with leakage into a large medial thigh hematoma. Vascular surgery was consulted and Dr. Lux has evaluated and plans to take patient to OR in the morning. Patient 's hemoglobin is 6.5. Blood pressure is 94/43. Heart rate is in the 60s. His potassium is 7.3. Dr. Vieira has ordered medical treatment of hyperkalemia including albuterol nebs, Kayexalate 15 g, insulin 10 units IV, 1 amp of D50, calcium gluconate 1 g, bicarbonate 50 mEq IV. I have contacted Dr. Enrique who will proceed with emergent dialysis in order to stabilize patient for anticipated OR. Patient's son states he underwent dialysis at the outpatient center on 01/11/18 and on 01/13/18 CBC/BMP: 01/19/18 0545 Imaging Last Impressions Aorta CTA 01/15/18 1901 Signed Impressions: Service Date/Time: Monday, January 15, 2018 19:51 - CONCLUSION: Active extravasation from a small perforation in the distal right common femoral artery with leakage into a very large medial thigh hematoma. Dr. Sepulveda and Dr. Lux were alerted to the findings upon interpretation. Hossein Irene MD Chest X-Ray 01/15/18 0000 Signed Impressions: Service Date/Time: Monday, January 15, 2018 23:42 - CONCLUSION: No acute disease. Joshua Cummings MD PE at Discharge GENERAL: patient sitting up in bed, walking in room. Appears comfortable. SKIN: Warm and dry. HEAD: Normocephalic. EYES: No scleral icterus. No injection or drainage. NECK: Supple, trachea midline. No JVD. CARDIOVASCULAR: Regular rate and rhythm without murmurs, gallops, or rubs. RESPIRATORY: Breath sounds equal bilaterally. No accessory muscle use. GASTROINTESTINAL: Abdomen soft, non-tender, nondistended. MUSCULOSKELETAL: No cyanosis, or edema. SINCERE drain in the morning of exam with small amount of serosanguineous fluid.. BACK: Nontender without obvious deformity. No CVA tenderness. Pt update on day of discharge 01/19. Patient seen using japanese interpreter. Patient's daughter at bedside as well. Patient says she is feeling all right. Denies any chest pain or shortness of breath. Positive bowel movement. Called in the afternoon by nursing report drain has been removed, patient has been cleared for discharge by cardiovascular surgery. Hospital Course Patient is found to have large right common femoral hematoma, as well as severe anemia with hemoglobin of 6.5 on admission. Patient was transfused 3 units of PRBCs with improvement. Cardiovascular surgery was consulted and patient underwent aneurysm repair with placement of SINCERE drain. Nephrology followed during admission and provided dialysis. Cardiology was also consulted due to severe aortic stenosis, and recommends restarting beta siena, follow-up with primary clinical nursing intern as outpatient. SINCERE drain output improved, and patient was cleared by cardiovascular surgery for discharge. For problem-based summary from most recent progress note, please see below. //Pain Lortab as needed for pain Morphine as needed for breakthrough pain. RESP: On room air. CV: //Hypertension //Aortic stenosis status post aortic valve replacement now with severe prosthetic stenosis. //Right femoral artery pseudoaneurysm //LBBB Undergoing workup for redo AVR by Dr. Bowers Cardiac catheterization 01/11/[address] Kenny Lux repaired in OR 01/16. = 01/18. Patient with hypotension with systolics in the 90s. With advanced aortic stenosis I have consulted cardiology to make sure that patient is optimized for eventual hospital discharge versus possible need for surgery here prior to discharge. Appreciate cardiology assistance. Outside records requested. = Blood pressure is acceptable. Follow-up with cardiology as outpatient. GI: NPO FEN/RENAL: //ESRD //Severe hyperkalemia //Secondary hyperparathyroidism Received calcium, bicarbonate 50 mEq, insulin 10 units IV, amp D50, albuterol, Kayexalate in the emergency department. Contacted Dr. Enrique who will proceed with emergent HD. Patient's primary meat team lead is Dr. Dickinson in [place]. Has left upper extremity fistula which has recently been functioning following intervention by Dr. Dannie Verdugo. Continue Renvela 800 mg by mouth 3 times a day. Sensipar 60 po daily Patient still makes some urine. ID: //leukocytosis but no other signs of infection. =improving 21 from 28. Likely stress related. -blood cultures negative. Low-grade temperatures but no fevers. -tachycardia likely secondarybeta siena withdrawal.Monitor for signs and symptoms of infection HEME: //Acute blood loss anemia //Thrombocytopenia Transfused 3 units packed red cells with hemodialysis. Type and hold has been ordered for OR per Dr. Ramon Riojas unremarkable. Platelet count greater than 100. No antiplatelet or anticoagulant. Serial hemoglobin every 6 hours and transfuse as indicated for hemoglobin less than 8 or hypotension. Epogen 10,000 units with dialysis. ENDO: //Diabetes mellitus Hold tradjenta 5 mg po daily Monitor bedside glucose. And initiate low-dose insulin sliding scale. = Blood sugars acceptable on current regimen. PROPH: SCDs for DVT prophylaxis. Pharmacologic DVT prophylaxis contraindicated due to acute blood loss from pseudoaneurysm, can be initiated postoperatively when appropriate per vascular surgery. Famotidine for stress ulcer prophylaxis. ACCESS: Peripheral IV providing adequate access at this time. Left upper extremity fistula Pt Condition on Discharge: Good Discharge Disposition: Disch w/ Home Health Serv Discharge Time: > 30 minutes Discharge Instructions DIET: Follow Instructions for: Diabetic Diet, Renal Failure Diet Activities you can perform: Regular-No Restrictions Follow up Referrals: PCP Follow-up - 1 Week with Lacie Best MD Vascular Surgery - 1 Week with Delio Lux MD New Medications: Hydrocodone/Acetaminophen (Hydrocodone-Acetamin 5-325 mg) 5 Mg-325 Mg Tablet 1 TAB PO Q6H PRN for PAIN 3-10, #20 TAB Continued Medications: Carvedilol (Carvedilol) 12.5 Mg Tab 12.5 MG PO DAILY, #60 TAB 0 Refills Cinacalcet (Sensipar) 60 Mg Tab 60 MG PO DAILY, #30 TAB 0 Refills Dextromethorphan-Guaifenesin (Mucinex DM) 30-600 Mg Tab 1 TAB PO BID PRN for CHEST CONGESTION AND/OR COUGH for 7 Days, #15 TAB 0 Refills Furosemide (Furosemide) 40 Mg Tab 40 MG PO DAILY, #30 TAB 0 Refills Linagliptin (Tradjenta) 5 Mg Tab 5 MG PO DAILY for Blood Sugar Management, #30 TAB 0 Refills Sevelamer Carbonate (Renvela) 800 Mg Tab 800 MG PO TID for Control phosphorous levels, #90 TAB 0 Refills [dialyvite] () 800 DAILY Discontinued Medications: Azithromycin (Zithromax Z-Deandre) 250 Mg Dspk 250 MG PO DIRECTED for Infection, #1 DSPK 0 Refills 500 MG (2 tabs) day 1, then 1 tab days 2-5. Ubaldo Fatima MD Jan 23, 2018 11:23
== END 2018-01-19 19:51 | disposition home health service (06) | DRG 907 ==
LOC: NEPE 18:07 → NEDA 22:53 → HIMN 23:20 → N03B 01-16 12:16 → HPAC 01-16 22:24 → N03A 01-16 23:08 → N06A 01-17 23:12
PROVIDERS: ADMIT Emergency Medicine; ATTEND Hospitalist
PROC: 30233N1 Transfusion of Nonautologous Red Blood Cells into Peripheral Vein, Percutaneous Approach (ICD-10-PCS; 2018-01-15)
PROC: 04QK0ZZ Repair Right Femoral Artery, Open Approach (ICD-10-PCS; 2018-01-16)
PROC: 04L Lower Arteries, Occlusion (ICD-10-PCS; 2018-01-16)
PROC: 04CK0ZZ Extirpation of Matter from Right Femoral Artery, Open Approach (ICD-10-PCS; principal; 2018-01-16 15:22)
PROC: 5A1D70Z Performance of Urinary Filtration, Intermittent, Less than 6 Hours Per Day (ICD-10-PCS; 2018-01-18)
DX: I97.630 Postprocedural hematoma of a circulatory system organ or structure following a cardiac catheterization (principal); N18.6 End stage renal disease; I13.2 Hypertensive heart and chronic kidney disease with heart failure and with stage 5 chronic kidney disease, or end stage renal disease; I95.9 Hypotension, unspecified; E11.22 Type 2 diabetes mellitus with diabetic chronic kidney disease; D69.6 Thrombocytopenia, unspecified; N25.81 Secondary hyperparathyroidism of renal origin; I50.9 Heart failure, unspecified; D62 Acute posthemorrhagic anemia; E87.5 Hyperkalemia; I72.4 Aneurysm of artery of lower extremity; Z99.2 Dependence on renal dialysis; E83.51 Hypocalcemia; D63.1 Anemia in chronic kidney disease; Y84.0 Cardiac catheterization as the cause of abnormal reaction of the patient, or of later complication, without mention of misadventure at the time of the procedure; T82.857D Stenosis of other cardiac prosthetic devices, implants and grafts, subsequent encounter; I44.7 Left bundle-branch block, unspecified; I25.10 Atherosclerotic heart disease of native coronary artery without angina pectoris; K59.00 Constipation, unspecified; Z85.828 Personal history of other malignant neoplasm of skin; Z79.84 Long term (current) use of oral hypoglycemic drugs; Z88.8 Allergy status to other drugs, medicaments and biological substances
CPT/HCPCS: 36430; 71045; 71275; 74174; 80048; 80053; 80074; 82306; 82948; 83540; 83550; 83970; 84100; 84155; 85007; 85014; 85018; 85025; 85027; 85610; 85730; 86850; 86900; 86901; 86920; 87641; 90935; 93005; 93306; 94664; 96361; 96374; 96375; J0610; J0690; J1644; J1815; J2270; J2370; J2710; J2720; J3010; J7040; J7050; J7613; P9016; P9021; Q4081; Q9967

== ENCOUNTER 2018-01-20 03:33 | Inpatient (IN) | payer MEDICARE, OTHER ==
[2018-01-20] VITALS (20 sets, daily range): BP systolic 71–123; BP diastolic 32–56; PULSE 91–150; RESP 16–26; TEMP 97.6–99.2; O2SAT 89–100
[~2018-01-20] VITALS: Ht 162.6 cm; Wt 100.0 kg
[~2018-01-20 03:33] MED LIST changes: +CARV12.52 PO; +FURO40TA PO; +HYDR-3516 PO; +SENS60TA PO; +SEVEL800 PO; +TRAD5TAB PO; -ZITHTAB PO; +dialyvite
--- NOTE | 2018-01-20 03:53 | PD ---
HPI Chief Complaint: Abdominal Pain Time Seen by Provider: 03:52 Travel History International Travel<30 days: No Contact w/Intl Traveler<30days: No Traveled to known affect area: No History of Present Illness HPI Patient is a 67-year-old male who has history of diabetes mellitus, hypertension, aortic regurgitation, aortic stenosis. Pt has been in or ICU and discharge today Pt has had a catheterization and then post procedure hematoma in groin and thigh loss excessive blood and need Units of PRBC tonight paramendic called due to abdo pain and hypotension ,, paramedics found pt to be hypotensive and they said they had to give him Narcan to make him awake and have his pressure rebound from 70/29 to -96/60 he arrives patient is denying taking pain medications however he was discharged on hydrocodone that family may be giving to him wit hoverdose accidental . pt in ER is now awake alert and complaining only of the distended abdominal pain mostly in the epigastrium. PFSH Past Medical History Asthma: Yes Cancer: No Cardiovascular Problems: Yes Congestive Heart Failure: Yes COPD: Yes Diabetes: Yes Patient Takes Glucophage: Yes Dialysis: Yes Diminished Hearing: No Endocrine: Yes Genitourinary: Yes Hypertension: Yes Immune Disorder: No Musculoskeletal: No Neurologic: No Psychiatric: No Reproductive: No Tetanus Vaccination: Unknown Influenza Vaccination: Yes Past Surgical History Abdominal Surgery: No Cardiac Surgery: Yes (Valve replacement 7 yrs ago, cardiac cath last 01/11/18) Ear Surgery: No Endocrine Surgery: No Eye Surgery: No Genitourinary Surgery: No Gynecologic Surgery: No Oral Surgery: No Thoracic Surgery: No Valve Replacement: Yes Social History Alcohol Use: No Tobacco Use: No Substance Use: No Allergies-Medications (Allergen,Severity, Reaction): Coded Allergies: heparin (Verified Allergy, Severe, 01/20/18) Iodinated Contrast- Oral and IV Dye (Verified Allergy, Unknown, Rash, 01/20) morphine (Verified Allergy, Unknown, Itching, 01/20/18) Reported Meds & Prescriptions Reported Meds & Active Scripts Active Hydrocodone-Acetamin 5-325 mg (Hydrocodone/Acetaminophen) 5 Mg-325 Mg Tablet 1 Tab PO Q6H PRN Mucinex DM (Dextromethorphan-Guaifenesin) 30-600 Mg Tab 1 Tab PO BID PRN 7 Days Reported Trazodone (Trazodone HCl) 150 Mg Tablet 150 Mg PO HS Renvela (Sevelamer Carbonate) 800 Mg Tab 800 Mg PO TID Furosemide 40 Mg Tab 40 Mg PO DAILY [dialyvite] 800 DAILY Sensipar (Cinacalcet) 60 Mg Tab 60 Mg PO DAILY Carvedilol 12.5 Mg Tab 12.5 Mg PO DAILY Tradjenta (Linagliptin) 5 Mg Tab 5 Mg PO DAILY Review of Systems Except as stated in HPI: all other systems reviewed are Neg General / Constitutional: Positive: Other (weakness ) Gastrointestinal: Positive: Nausea, Abdominal Pain Physical Exam Narrative GENERAL: moaning in vague abdominal pain distended abdomen hypotensive SKIN: Warm and dry. large area of purplish discoloration on gravity dependent parts of skin to right leg thigh and perianal area HEAD: Atraumatic. Normocephalic. EYES: Pupils equal and round. No scleral icterus. No injection or drainage. ENT: No nasal bleeding or discharge. Mucous membranes pink and moist. NECK: Trachea midline. No JVD. CARDIOVASCULAR: Regular rate and rhythm. slightly hypotensive RESPIRATORY: No accessory muscle use. Clear to auscultation. Breath sounds equal bilaterally. GASTROINTESTINAL: Abdomen ++ distended and diffusely tender .. Hepatic and splenic margins not palpable. MUSCULOSKELETAL: Extremities Right thigh has healing scar over right thigh upper and lower part is discolored purple subQ blood staining from prior bleed hematoma after cath NEUROLOGICAL: Awake and alert. No obvious cranial nerve deficits. Motor grossly within normal limits. Five out of 5 muscle strength in the arms and legs. Normal speech. PSYCHIATRIC: ; insight and judgment normal. Data Data Last Documented VS Vital Signs Date Time Temp Pulse Resp B/P (MAP) Pulse Ox O2 Delivery O2 Flow Rate FiO2 01/20/18 03:38 98.0 91 16 92/43 (59) 95 Orders Orders Complete Blood Count With Diff (01/20/18 03:55) Comprehensive Metabolic Panel (01/20/18 03:55) Ckmb (Isoenzyme) Profile (01/20/18 03:55) Troponin I (01/20/18 03:55) Lipase (01/20/18 03:55) Chest, Single Ap (01/20/18 03:55) Abdomen, Flat & Upright (01/20/18 ) CKMB (01/20/18 04:05) CKMB% (01/20/18 04:05) Fleets Enema (Adult) (Fleets Enema (Adul (01/20/18 05:00) Ct Abd/Pel W/O Iv Contrast (01/20/18 ) Admit Order (Ed Use Only) (01/20/18 05:57) Labs Laboratory Tests Test 01/20/18 04:05 White Blood Count 23.9 TH/MM3 Red Blood Count 2.84 MIL/MM3 Hemoglobin 9.4 GM/DL Hematocrit 28.2 % Mean Corpuscular Volume 99.3 FL Mean Corpuscular Hemoglobin 32.9 PG Mean Corpuscular Hemoglobin Concent 33.2 % Red Cell Distribution Width 17.3 % Platelet Count 180 TH/MM3 Mean Platelet Volume 10.5 FL CBC Comment AUTO DIFF Differential Total Cells Counted 100 Neutrophils % (Manual) 37 % Band Neutrophils % 50 % Lymphocytes % 1 % Monocytes % 6 % Eosinophils % 1 % Neutrophils # (Manual) 22.0 TH/MM3 Metamyelocytes 5 % Nucleated Red Blood Cells 4 /100 WBC Differential Comment FINAL DIFF MANUAL Platelet Estimate NORMAL Platelet Morphology Comment NORMAL Ovalocytes 1+ Keratocytes 1+ Blood Urea Nitrogen 52 MG/DL Creatinine 7.83 MG/DL Random Glucose 58 MG/DL Total Protein 6.1 GM/DL Albumin 2.4 GM/DL Calcium Level 8.4 MG/DL Alkaline Phosphatase 126 U/L Aspartate Amino Transf (AST/SGOT) 678 U/L Alanine Aminotransferase (ALT/SGPT) 114 U/L Total Bilirubin 5.3 MG/DL Sodium Level 135 MEQ/L Potassium Level 4.8 MEQ/L Chloride Level 96 MEQ/L Carbon Dioxide Level 19.6 MEQ/L Anion Gap 19 MEQ/L Estimat Glomerular Filtration Rate 7 ML/MIN Total Creatine Kinase 856 U/L Creatine Kinase MB 15.4 NG/ML Creatine Kinase MB % 1.8 % Troponin I 0.25 NG/ML Lipase 24 U/L MDM Medical Decision Making Medical Screen Exam Complete: Yes Emergency Medical Condition: Yes Differential Diagnosis ileus vs bowel obstruction, ESRD and over dialyzed with too much fluid off , vs sepsis or excessive blood loss hematoma in large causing hypotension , vs infection PNA vs UTI other Narrative Course pt abdomen is very distended, I ordered KUB and set up for manual dis- empaction as family reports no BM for days , and he was this distended upstairs inpt. I find no stool in rectal vault to remove and then add CT to his exam , looking for mass causing obstruction. KUB and Upright which shows multiple loops of dilated small bowel suspicious for SBO pt gets CT and 500cc NS for hypotension .... labs and urine sent ,, pt continues hypotensive . Labs show electrolyte abnormalities but K is within normal , dialysis is scheduled for today will dialyze inpt and then CT returns confirming excessive dilation of stomach SB and Large bowel also dilated, NGtube placed 1000 greenish yellow liquid out ..pt abdo decompresses and then he feels better slightly , pt admitted to ICU for GI management and Surgical consult and dialysis Dr Kartik ferguson to arrange inpt dialysis ..Pt given NS resusitation and it will be dialyzed off if he becomes fluid overloaded. Critical Care Narrative 30 minutes critical care time Diagnosis Primary Impression: Ileus Additional Impressions: Hypotension Qualified Codes: I95.3 - Hypotension of hemodialysis Abdominal pain Admitting Information Admitting Physician Requests: Admit Cody Sparks MD Jan 20, 2018 03:53
[2018-01-20 04:26] LABS: HEMATOCRIT 28.2 % (39.0-51.0); HEMOGLOBIN 9.4 GM/DL (13.0-17.0); MEAN CELL VOLUME 99.3 FL (80.0-100.0); MEAN CORPUSCULAR HEMOGLOBIN 32.9 PG (27.0-34.0); MEAN CORPUSCULAR HGB CONC 33.2 % (32.0-36.0); MEAN PLATELET VOLUME 10.5 FL (7.0-11.0); PLATELET COUNT 180 TH/MM3 (150-450); RED BLOOD COUNT 2.84 MIL/MM3 (4.50-5.90); RED CELL DISTRIBUTION WIDTH 17.3 % (11.6-17.2); WHITE BLOOD COUNT 23.9 TH/MM3 (4.0-11.0)
--- NOTE | 2018-01-20 04:38 | RADRPT ---
EXAM DATE/TIME: 01/20/2018 04:12 [facility] COMPARISON: CHEST SINGLE AP, January 15, 2018, 23:42. INDICATIONS : Cough. MEDICAL HISTORY : Cardiovascular disease. Diabetes mellitus type 2. Dyalisis. Hematoma. SURGICAL HISTORY : CABG. Heart cath. ENCOUNTER: Initial ACUITY: 4 - 6 days PAIN SCORE: 0/10 LOCATION: Bilateral chest FINDINGS: Small lung volumes with vascular consolidation and patchy atelectasis noted. No large effusion seen. No pneumothorax. Heart size stable, upper limits of normal. Median sternotomy changes are again noted. There is a left subclavian artery stent again noted. CONCLUSION: Patchy atelectasis. Hossein Escobar MD on January 20, 2018 at 4:36 Board Certified Radiologist. This report was verified electronically.
--- NOTE | 2018-01-20 04:39 | RADRPT ---
EXAM DATE/TIME: 01/20/2018 04:14 [facility] COMPARISON: No previous studies available for comparison. INDICATIONS : Abdomen pain. MEDICAL HISTORY : Cardiovascular disease. Diabetes mellitus type 2. Dyalisis. Hematoma. SURGICAL HISTORY : CABG. Heart cath. ENCOUNTER: Initial ACUITY: 4 - 6 days PAIN SCORE: 10/10 LOCATION: abdomen FINDINGS: There is small bowel distention with a generally decompressed colon of concern for small bowel obstru ction. No free air is seen. No perceptible intra-abdominal mass. CONCLUSION: Abnormal bowel gas pattern of concern for small bowel obstruction. No free air. Hossein Escobar MD on January 20, 2018 at 4:37 Board Certified Radiologist. This report was verified electronically.
[2018-01-20 04:44] LABS: ALBUMIN 2.4 GM/DL (3.4-5.0); ALKALINE PHOSPHATASE 126 U/L (45-117); ALT (GPT) 114 U/L (12-78); AST (GOT) 678 U/L (15-37); BICARBONATE 19.6 MEQ/L (21.0-32.0); BLOOD UREA NITROGEN 52 MG/DL (7-18); CALCIUM 8.4 MG/DL (8.5-10.1); CHLORIDE 96 MEQ/L (98-107); CREATININE 7.83 MG/DL (0.60-1.30); GLOMERULAR FILTRATION RATE 7 ML/MIN (>89); GLUCOSE,RANDOM 58 MG/DL (74-106); SODIUM (NA) 135 MEQ/L (136-145); TOTAL BILIRUBIN ADULT 5.3 MG/DL (0.2-1.0); TOTAL PROTEIN 6.1 GM/DL (6.4-8.2); TROPONIN I 0.25 NG/ML (0.02-0.05)
[2018-01-20] MEDS ORDERED: AMIODARONE HCL 150 MG/3 ML VIAL IV ONE (05:00)
[2018-01-20] MEDS ORDERED: SOD PHOSPHATE/SOD BIPHOSPHATE (ADULT) ENEMA 133ML RECTAL ONE (05:00)
[2018-01-20] MEDS ORDERED: SODIUM BICARBONATE 8.4% INJ 50 MEQ/50 ML SYR IV ONE ×2 (05:00)
[2018-01-20] MEDS ORDERED: DEXTROSE 50% IN WATER 50 ML SYRINGE IV ONE (05:00)
[2018-01-20] MEDS ORDERED: DOPamine INJ PREMIX 500 ML IV ONE (05:00)
[2018-01-20] MEDS ORDERED: EPINEPHrine HCL (1:10,000) 1 MG/10 ML SYRINGE IV ONE ×2 (05:00)
[2018-01-20 05:26] LABS: BANDS 50 % (0-6); CORRECTED NUCLEATED RBC 4 /100 WBC (0-0); LYMPHOCYTES 1 % (9-44); METAMYELOCYTES 5 % (0-1); MONOCYTES 6 % (0-8); NUCLEATED RED BLOOD CELL 4 (0-0); POLYS (SEG NEUTROPHILS) 37 % (16-70)
[2018-01-20 05:27] LABS: KERATOCYTES 1+ (NORMAL); OVALOCYTES 1+ (NORMAL)
--- NOTE | 2018-01-20 05:46 | RADRPT ---
EXAM DATE/TIME: 01/20/2018 05:24 [facility] COMPARISON: CTA THORACIC ABDOMINAL AORTA W 3D RECON, January 15, 2018, 19:51. INDICATIONS : Abdominal pain; possible small bowel obstruction. ORAL CONTRAST: No oral contrast ingested. RADIATION DOSE: 12.11 CTDIvol (mGy) MEDICAL HISTORY : Chronic obstructive pulmonary disease. Congestive heart failure. Renal failure, chronic.Hypertension, Asthma SURGICAL HISTORY : Valve replacement ENCOUNTER: Initial ACUITY: 1 day PAIN SCALE: 10/10 LOCATION: abdomen TECHNIQUE: Volumetric scanning of the abdomen and pelvis was performed. Using automated exposure control and ad justment of the mA and/or kV according to patient size, radiation dose was kept as low as reasonably achievable to obtain optimal diagnostic quality images. DICOM format image data is available electro nically for review and comparison. FINDINGS: Stomach, small bowel and much of the colon are distended. There is a caliber change of the colon at t he level of the splenic flexure, for example series 2 image 40. Enteric contrast is seen in the dista l colon, etiology uncertain. I don't see a mass. Also no high-grade inflammatory changes are seen. Small ascites again noted, decreased. No acute solid organ abnormality demonstrated. Kidneys are atro phic and there is a 2.2 cm benign-appearing cyst on the right. A few tiny stones are seen dependently in the gallbladder. Right groin vascular surgery in the interim. A right flank hematoma is again noted, smaller. CONCLUSION: 1. Distended stomach, small bowel and right side of the colon. Although there is a caliber change in the region of the splenic flexure region of the colon, in believe this is all most likely an ileus. I don't see a mass or significant inflammatory changes. With the stomach being distended, and the vandana ent may benefit from decompression with a nasogastric tube. 2. Interim vascular surgery in the right groin. Right flank hematoma is slightly smaller. 3. Small intra-abdominal ascites, decreased. Hossein Escobar MD on January 20, 2018 at 5:37 Board Certified Radiologist. This report was verified electronically.
[2018-01-20] MEDS ORDERED: SODIUM CHLORID 0.9% 500 ML INJ 500 ML IV ONE ×2 (06:15→07:45)
[2018-01-20] MEDS ORDERED: TRAZ1TAB14 PO (06:19)
[2018-01-20] MEDS ORDERED: CHLORHEXIDINE GLUCONATE 2 % 1 PACK (2 CLOTHS) TOP PRN (08:00)
[2018-01-20] MEDS ORDERED: BISACODYL 10 MG SUPP RECTAL PRN (08:00)
[2018-01-20] MEDS ORDERED: SODIUM CHLORIDE 0.9% FLUSH 10 ML FLUSH IV FLUSH PRN ×2 (08:00→09:45)
[2018-01-20] MEDS ORDERED: MAGNESIUM HYDROXIDE SUSP 30 ML CUP PO PRN (08:00)
[2018-01-20] MEDS ORDERED: LACTULOSE SYRUP 20 GM/30 ML CUP PO PRN (08:00)
[2018-01-20] MEDS ORDERED: MISCELLANEOUS NURSING INFORMATION XX SCH (08:00)
[2018-01-20] MEDS ORDERED: SENNOSIDES 8.6 MG TAB PO PRN (08:00)
--- NOTE | 2018-01-20 08:10 | PD ---
Data Data Last Documented VS Vital Signs Date Time Temp Pulse Resp B/P (MAP) Pulse Ox O2 Delivery O2 Flow Rate FiO2 01/20/18 03:38 98.0 91 16 92/43 (59) 95 Orders Orders Complete Blood Count With Diff (01/20/18 03:55) Comprehensive Metabolic Panel (01/20/18 03:55) Ckmb (Isoenzyme) Profile (01/20/18 03:55) Troponin I (01/20/18 03:55) Lipase (01/20/18 03:55) Ua Includes Microscopic (01/20/18 03:55) Chest, Single Ap (01/20/18 03:55) Abdomen, Flat & Upright (01/20/18 ) CKMB (01/20/18 04:05) CKMB% (01/20/18 04:05) Fleets Enema (Adult) (Fleets Enema (Adul (01/20/18 05:00) Ct Abd/Pel W/O Iv Contrast (01/20/18 ) Admit Order (Ed Use Only) (01/20/18 05:57) Labs Laboratory Tests Test 01/20/18 04:05 White Blood Count 23.9 TH/MM3 Red Blood Count 2.84 MIL/MM3 Hemoglobin 9.4 GM/DL Hematocrit 28.2 % Mean Corpuscular Volume 99.3 FL Mean Corpuscular Hemoglobin 32.9 PG Mean Corpuscular Hemoglobin Concent 33.2 % Red Cell Distribution Width 17.3 % Platelet Count 180 TH/MM3 Mean Platelet Volume 10.5 FL CBC Comment AUTO DIFF Differential Total Cells Counted 100 Neutrophils % (Manual) 37 % Band Neutrophils % 50 % Lymphocytes % 1 % Monocytes % 6 % Eosinophils % 1 % Neutrophils # (Manual) 22.0 TH/MM3 Metamyelocytes 5 % Nucleated Red Blood Cells 4 /100 WBC Differential Comment FINAL DIFF MANUAL Platelet Estimate NORMAL Platelet Morphology Comment NORMAL Ovalocytes 1+ Keratocytes 1+ Blood Urea Nitrogen 52 MG/DL Creatinine 7.83 MG/DL Random Glucose 58 MG/DL Total Protein 6.1 GM/DL Albumin 2.4 GM/DL Calcium Level 8.4 MG/DL Alkaline Phosphatase 126 U/L Aspartate Amino Transf (AST/SGOT) 678 U/L Alanine Aminotransferase (ALT/SGPT) 114 U/L Total Bilirubin 5.3 MG/DL Sodium Level 135 MEQ/L Potassium Level 4.8 MEQ/L Chloride Level 96 MEQ/L Carbon Dioxide Level 19.6 MEQ/L Anion Gap 19 MEQ/L Estimat Glomerular Filtration Rate 7 ML/MIN Total Creatine Kinase 856 U/L Creatine Kinase MB 15.4 NG/ML Creatine Kinase MB % 1.8 % Troponin I 0.25 NG/ML Lipase 24 U/L MDM Supervised Visit with JAQUELINE: No Narrative Course Patient already disposition to the ICU, reviewed the patient's records, critically ill with multiple laboratory abnormalities and evidence of multiple organ failure. Has not been febrile while in the emergency department and I see no obvious source of infection in this patient. The patient does have significant ileus and recent hospitalization after cardiac catheterization that was complicated by groin hematoma which was surgically repaired. The patient today has a fairly severe ileus and NG tube was inserted and the patient has had 900 cc of pale green fluid out, he is only had 500 cc of fluid in. Patient was examined by me, he is able to move all 4 extremities on command, does appear somnolent bordering on lethargic but a GCS of 14, his son is at the bedside translates for me and he states that patient does not seem significantly altered. Dialysis has shown up to take the patient to his dialysis, however his blood pressure is now starting to decline, his map is now in the high 40s, an additional 500 cc bolus was ordered by me as well as lactic acid to further quantify the patient's fluid status but he may need pressors in the near future. discussed the patient with Dr. Kaba and she agrees that the patient should not be sent to dialysis instead brought to the ICU. Orders have been placed and the patient was transported in critical condition. Diagnosis Primary Impression: Hypotension Additional Impression: Ileus Vazquez Ortiz MD Jan 20, 2018 08:10
[2018-01-20] MEDS ORDERED: PILL SPLITTER OTHER PRN (08:15)
[2018-01-20] MEDS ORDERED: DEXTROSE 50% IN WATER 50 ML VIAL(D50) IV ONE (08:15)
[2018-01-20] MEDS ORDERED: NOREPINEPHRINE-DEXTROSE DRIP 250 ML IV ONE (08:41)
[2018-01-20] MEDS: NOREPINEPHRINE INJ 4 MG in SODIUM CHLOR 0.9% 250 ML INJ 246 ML IV PRN ×3 (08:42→18:20)
[2018-01-20] MEDS ORDERED: TERBUTALINE INJ 1 MG/ML AMP SQ PRN ×2 (08:45→21:45)
[2018-01-20] MEDS ORDERED: SODIUM CHLOR 0.9% 1000 ML INJ 1,000 ML IV ONE (08:45)
--- NOTE | 2018-01-20 08:47 | HHI.HP ---
[facility] Service Critical Care Medicine Primary Care Physician Lacie Best MD Admission Diagnosis sepsis Diagnosis: (1) Severe sepsis Diagnosis: Principal (2) Systolic heart failure Diagnosis: Principal (3) Lactic acidosis (4) Hypotension Diagnosis: Principal (5) ESRD on dialysis Diagnosis: Secondary (6) Aortic stenosis Diagnosis: Secondary (7) Ileus Chief Complaint: Abdominal pain. Travel History International Travel<30 Days: No Contact w/Intl Traveler <30 Da: No Traveled to Known Affected Are: No History of Present Illness From recent admission: 67-year-old male with past medical history of end-stage renal disease who has been on hemodialysis approximately 7 years and receives dialysis from Dr. Dickinson on T/R/S schedule. He also has diabetes mellitus, hypertension, aortic regurgitation, aortic stenosis. He has a bioprosthetic aortic valve with severe prosthetic stenosis and has been undergoing workup for redo valve to be performed by Dr. Bowers. On 01/11 he underwent cardiac catheterization as part of the workup, performed at [facility] by Dr. Cox. Reports states minimal coronary disease. He began having bruising and swelling of his right groin on and this progressed over the last couple of days. The pain was becoming worse and unbearable and so he presented to [facility] emergency department. CTA demonstrated extravasation from right common femoral artery pseudoaneurysm with leakage into a large medial thigh hematoma. Vascular surgery was consulted and Dr. Lux has repaired the artery during last admission. 01/20: Patient discharged yesterday and returns to ED with distended abdomen and bowel pattern of severe ileus vs obstruction. NG removed 1300 mls and abdomen remains distended. Right groin is erythematous. Will cover with broad abx, continue gastric decompression. Hypotensive after 1000 ml, severe aortic stenosis and depressed LV function. Start levophed while undergoing fluid resuscitation. Review of Systems Respiratory: COMPLAINS OF: Shortness of breath Gastrointestinal: COMPLAINS OF: Abdominal pain, Constipation Past Family Social History Allergies: Coded Allergies: heparin (Verified Allergy, Severe, 01/20/18) Iodinated Contrast- Oral and IV Dye (Verified Allergy, Unknown, Rash, 01/20) morphine (Verified Allergy, Unknown, Itching, 01/20/18) Past Medical History Past Medical History Asthma: Yes Cancer: No Cardiovascular Problems: Yes Congestive Heart Failure: Yes COPD: Yes Diabetes: Yes Patient Takes Glucophage: Yes Dialysis: Yes Diminished Hearing: No Endocrine: Yes Genitourinary: Yes Hypertension: Yes Immune Disorder: No Musculoskeletal: No Neurologic: No Psychiatric: No Reproductive: No Tetanus Vaccination: Unknown Influenza Vaccination: Yes Past Surgical History Abdominal Surgery: No Cardiac Surgery: Yes (Valve replacement 7 yrs ago, cardiac cath last 01/11/18) Ear Surgery: No Endocrine Surgery: No Eye Surgery: No Genitourinary Surgery: No Gynecologic Surgery: No Oral Surgery: No Thoracic Surgery: No Valve Replacement: Yes Social History Alcohol Use: No Tobacco Use: No Substance Use: No Allergies-Medications Allergies-Medications (Allergen,Severity, Reaction): Coded Allergies: heparin (Verified Allergy, Severe, 01/20/18) Reported Meds & Prescriptions Reported Meds & Active Scripts Active Hydrocodone-Acetamin 5-325 mg (Hydrocodone/Acetaminophen) 5 Mg-325 Mg Tablet 1 Tab PO Q6H PRN Mucinex DM (Dextromethorphan-Guaifenesin) 30-600 Mg Tab 1 Tab PO BID PRN 7 Days Reported Renvela (Sevelamer Carbonate) 800 Mg Tab 800 Mg PO TID Furosemide 40 Mg Tab 40 Mg PO DAILY [dialyvite] 800 DAILY Sensipar (Cinacalcet) 60 Mg Tab 60 Mg PO DAILY Carvedilol 12.5 Mg Tab 12.5 Mg PO DAILY Tradjenta (Linagliptin) 5 Mg Tab 5 Mg PO DAILY Physical Exam Vital Signs Vital Signs Date Time Temp Pulse Resp B/P (MAP) Pulse Ox O2 Delivery O2 Flow Rate FiO2 01/20/18 08:15 01/20/18 08:09 97 71/32 (45) 97 Room Air 01/20/18 07:47 92 22 71/32 (45) 97 01/20/18 06:36 93 18 86/43 (57) 94 Room Air 01/20/18 06:00 93 18 85/47 (60) 93 Room Air 01/20/18 03:38 98.0 91 16 92/43 (59) 95 Physical Exam Physical Exam Physical Exam Vital Signs Physical Exam GENERAL: Ill-appearing, guatemalan-speaking patient. SKIN/MSK/VASC: Warm and dry. There is a large ecchymosis overlying right groin extending proximal to the inguinal ligament and down right anterior medial thigh. Groin incision right is warm, erythematous. Foot is warm with palpable DP pulse and NOTEMAN pulse. Left upper arm fistula with palpable thrill. HEAD: Atraumatic. Normocephalic. EYES: R pupil 2mm and reactive. L pupil 4 mm and nonreactive. No scleral icterus. No injection or drainage. ENT: No nasal bleeding or discharge. Mucous membranes pink and moist. NECK: Trachea midline. Airway widely patent. CARDIOVASCULAR: Regular rate and rhythm. 4/6 systolic murmur right sternal border and 3/6 diastolic murmur left lower sternal border. No JVD. RESPIRATORY: Breathing labored with accessory muscle use. Clear to auscultation bilaterally. Sats 100% on pulse ox. GASTROINTESTINAL: Abdomen distended, few bowel sounds. Tender to palpation, no peritoneal irritation. Bowel sounds sparse, obstructive pattern. NEUROLOGICAL: Lethargic. Motor grossly within normal limits. Mongolian-speaking. Laboratory Laboratory Tests Test 01/20/18 04:05 01/20/18 07:55 White Blood Count 23.9 Red Blood Count 2.84 Hemoglobin 9.4 Hematocrit 28.2 Mean Corpuscular Volume 99.3 Mean Corpuscular Hemoglobin 32.9 Mean Corpuscular Hemoglobin Concent 33.2 Red Cell Distribution Width 17.3 Platelet Count 180 Mean Platelet Volume 10.5 CBC Comment AUTO DIFF Differential Total Cells Counted 100 Neutrophils % (Manual) 37 Band Neutrophils % 50 Lymphocytes % 1 Monocytes % 6 Eosinophils % 1 Neutrophils # (Manual) 22.0 Metamyelocytes 5 Nucleated Red Blood Cells 4 Differential Comment FINAL DIFF MANUAL Platelet Estimate NORMAL Platelet Morphology Comment NORMAL Ovalocytes 1+ Keratocytes 1+ Blood Urea Nitrogen 52 Creatinine 7.83 Random Glucose 58 Total Protein 6.1 Albumin 2.4 Calcium Level 8.4 Alkaline Phosphatase 126 Aspartate Amino Transf (AST/SGOT) 678 Alanine Aminotransferase (ALT/SGPT) 114 Total Bilirubin 5.3 Sodium Level 135 Potassium Level 4.8 Chloride Level 96 Carbon Dioxide Level 19.6 Anion Gap 19 Estimat Glomerular Filtration Rate 7 Total Creatine Kinase 856 Creatine Kinase MB 15.4 Creatine Kinase MB % 1.8 Troponin I 0.25 Lipase 24 Lactic Acid Level 9.0 Result Diagram: 01/20/1840401/20/18404 Caprini VTE Risk Assessment Caprini VTE Risk Assessment: Mod/High Risk (score >= 2) Caprini Risk Assessment Model Point Value = 1 Point Value = 2 Point Value = 3 Point Value = 5 Age 41-60 Minor surgery BMI > 25 kg/m2 Swollen legs Varicose veins or History of unexplained or recurrent spontaneous Oral contraceptives or hormone replacement Sepsis (< 1 month) Serious lung disease, including pneumonia (< 1 month) Abnormal pulmonary function Acute myocardial infarction Congestive heart failure (< 1 month) History of inflammatory bowel disease Medical patient at bed rest Age 61-74 Arthroscopic surgery Major open surgery (> 45 min) Laparoscopic surgery (> 45 min) Malignancy Confined to bed (> 72 hours) Immobilizing plaster cast Central venous access Age >= 75 History of VTE Family history of VTE Factor V Leiden Prothrombin [id number] Lupus anticoagulant Anticardiolipin antibodies Elevated serum homocysteine Heparin-induced thrombocytopenia Other congenital or acquired thrombophilia Stroke (< 1 month) Elective arthroplasty Hip, pelvis, or leg fracture Acute spinal cord injury (< 1 month) Prophylaxis Regimen Total Risk Factor Score Risk Level Prophylaxis Regimen 0-1 Low Early ambulation 2 Moderate Order ONE of the following: *Sequential Compression Device (SCD) *Heparin 5000 units SQ BID 3-4 Higher Order ONE of the following medications: *Heparin 5000 units SQ TID *Enoxaparin/Lovenox 40 mg SQ daily (WT < 150 kg, CrCl > 30 mL/min) *Enoxaparin/Lovenox 30 mg SQ daily (WT < 150 kg, CrCl > 10-29 mL/min) *Enoxaparin/Lovenox 30 mg SQ BID (WT < 150 kg, CrCl > 30 mL/min) AND/OR *Sequential Compression Device (SCD) 5 or more Highest Order ONE of the following medications: *Heparin 5000 units SQ TID (Preferred with Epidurals) *Enoxaparin/Lovenox 40 mg SQ daily (WT < 150 kg, CrCl > 30 mL/min) *Enoxaparin/Lovenox 30 mg SQ daily (WT < 150 kg, CrCl > 10-29 mL/min) *Enoxaparin/Lovenox 30 mg SQ BID (WT < 150 kg, CrCl > 30 mL/min) AND *Sequential Compression Device (SCD) Assessment and Plan Assessment and Plan Assessment and Plan Assessment and Plan 1. Severe sepsis. 2. Bowel obstruction. 3. Metabolic acidosis. 4. Encephalopathy, metabolic. 5. ESRD. 6. Severe Aortic Stenosis. Plan ID - Vanc and cefepime, add flagyl - NS one liter - Levophed - Lactic acid. NEURO: May require intubation due to lethargy RESP: Intubate if further deterioration. CV: Hypertension Aortic stenosis status post aortic valve replacement now with severe prosthetic stenosis. Right femoral artery pseudoaneurysm LBBB Undergoing workup for redo AVR by Dr. Bowers Cardiac catheterization 01/11/[address] Cox GI: NPO - NG to LIS. FEN/RENAL: ESRD Secondary hyperparathyroidism Received calcium, bicarbonate 50 mEq, insulin 10 units IV, amp D50, albuterol, Kayexalate in the emergency department. Contacted Dr. Enrique who will proceed with emergent HD. Patient's primary cafe helper is Dr. Dickinson in [place]. Has left upper extremity fistula which has recently been functioning following intervention by Dr. Dannie Verdugo. Continue Renvela 800 mg by mouth 3 times a day. Sensipar 60 po daily Patient still makes some urine. HEME: Thrombocytopenia Epogen 10,000 units with dialysis. ENDO: Diabetes mellitus Hold tradjenta 5 mg po daily Monitor bedside glucose. And initiate low-dose insulin sliding scale as indicated. PROPH: SCDs for DVT prophylaxis. Famotidine for stress ulcer prophylaxis. ACCESS: Peripheral IV providing adequate access at this time. Left upper extremity fistula Place emergency groin lines Overall impression: Patient is critically ill with severe sepsis and metabolic acidosis presently undergoing resuscitation with vasopressors, inotropes, fluid infusion, and electrolyte correction. Will need dialysis when stable. Full code status. Critical care 48 mins aside from procedures Dav Dunlap MD Jan 20, 2018 08:47
[2018-01-20] MEDS: FAMOTIDINE 20 MG TAB PO SCH ×3 (09:00→20:40)
[2018-01-20] MEDS: DOCUSATE SODIUM 50 MG/SENNA 8.6 MG TAB PO SCH ×3 (09:00→20:40)
[2018-01-20] MEDS ORDERED: FAMOTIDINE 20 MG/2 ML VIAL IV PUSH PRN (09:00)
[2018-01-20] MEDS: DEXTROSE 10% INJ 500 ML IV SCH ×2 (09:05→20:28)
[2018-01-20] MEDS: metroNIDAZOLE 500 MG INJ 100 ML IV SCH ×2 (09:07→18:57)
[2018-01-20] MEDS: CEFEPIME INJ 2,000 MG in SODIUM CHLORIDE 0.9% INJ 100 ML IV SCH ×2 (09:07→20:28)
[2018-01-20] MEDS: SODIUM CHLORIDE 0.9% FLUSH 10 ML FLUSH IV FLUSH SCH ×2 (09:07→20:30)
[2018-01-20] MEDS ORDERED: CALCIUM CHLORIDE 10% SOLN 1 GRAM/10 ML SYR ONE (09:21)
[2018-01-20] MEDS ORDERED: SODIUM BICARBONATE 8.4% INJ 50 MEQ/50 ML SYR ONE ×2 (09:21→11:38)
[2018-01-20] MEDS ORDERED: PHENYLEPHRINE HCL 10 MG/ML VIAL ONE ×4 (09:24→09:59)
[2018-01-20] MEDS ORDERED: SODIUM CHLOR 0.9% 1000 ML INJ 1,000 ML IV PRN (09:34)
[2018-01-20] MEDS ORDERED: SODIUM CHLOR 0.9% 1000 ML INJ 1,000 ML OTHER PRN (09:34)
[2018-01-20] MEDS ORDERED: ROCURONIUM INJ 50 MG/5 ML VIAL ONE (09:34)
[2018-01-20] MEDS ORDERED: EPINEPHrine HCL (1:10,000) 1 MG/10 ML SYRINGE ONE ×3 (09:40→09:50)
[2018-01-20] MEDS: EPINEPHrine 2 MG/D5W 250 ML IV PRN ×6 (09:40→23:25)
[2018-01-20] MEDS ORDERED: cloNIDine HCL 0.1 MG TAB PO PRN (09:45)
[2018-01-20] MEDS ORDERED: HEPARIN SODIUM - IV 10,000 UNITS/10 ML VIAL IV FLUSH PRN (09:45)
[2018-01-20] MEDS ORDERED: HEPARIN SODIUM - IV 10,000 UNITS/10 ML VIAL PRN (09:45)
[2018-01-20] MEDS ORDERED: NITROGLYCERIN 0.4 MG SL 25 TABS/BTL SL PRN (09:45)
[2018-01-20] MEDS ORDERED: diphenhydrAMINE HCL 25 MG CAP PO PRN (09:45)
[2018-01-20] MEDS ORDERED: ONDANSETRON HCL 4 MG/2 ML VIAL IV PUSH PRN (09:45)
[2018-01-20] MEDS ORDERED: ACETAMINOPHEN 325 MG TAB PO PRN (09:45)
[2018-01-20] MEDS ORDERED: GENTAMICIN SULFATE 20 MG/2 ML VIAL OTHER PRN (09:45)
[2018-01-20 10:12] LABS: AUTOMATED NEUTROPHIL # 17.6 TH/MM3 (1.8-7.7); BASOPHIL % 0.2 % (0.0-2.0); EOSINOPHIL # 0.3 TH/MM3 (0-0.4); EOSINOPHIL % 1.4 % (0.0-4.0); HEMOGLOBIN 7.7 GM/DL (13.0-17.0); LYMPHOCYTE # 1.9 TH/MM3 (1.0-4.8); MEAN CELL VOLUME 103.2 FL (80.0-100.0); MEAN CORPUSCULAR HEMOGLOBIN 33.3 PG (27.0-34.0); MEAN CORPUSCULAR HGB CONC 32.3 % (32.0-36.0); MONO % 6.8 % (0.0-8.0); MONOCYTE # 1.4 TH/MM3 (0-0.9); NEUT % 82.6 % (16.0-70.0); PLATELET COUNT 150 TH/MM3 (150-450); RED BLOOD COUNT 2.32 MIL/MM3 (4.50-5.90); RED CELL DISTRIBUTION WIDTH 17.8 % (11.6-17.2); WHITE BLOOD COUNT 21.3 TH/MM3 (4.0-11.0)
[2018-01-20 10:23] LABS: INTERNATIONAL NORMALIZED RATIO 3.3 RATIO; PROTHROMBIN TIME - PATIENT 33.2 SEC (9.8-11.6)
[2018-01-20 10:38] LABS: ALBUMIN 1.9 GM/DL (3.4-5.0); ALKALINE PHOSPHATASE 108 U/L (45-117); ALT (GPT) 203 U/L (12-78); AST (GOT) 1363 U/L (15-37); BICARBONATE 19.1 MEQ/L (21.0-32.0); BLOOD UREA NITROGEN 56 MG/DL (7-18); CHLORIDE 100 MEQ/L (98-107); GLOMERULAR FILTRATION RATE 7 ML/MIN (>89); SODIUM (NA) 143 MEQ/L (136-145); TOTAL BILIRUBIN ADULT 4.6 MG/DL (0.2-1.0); TOTAL PROTEIN 4.5 GM/DL (6.4-8.2)
[2018-01-20 10:45] LABS: GLUCOSE,RANDOM 25 MG/DL (74-106)
[2018-01-20] MEDS ORDERED: VANCOMYCIN INJ 1,000 MG in SODIUM CHLOR 0.9% 250 ML INJ 250 ML IV ONE (11:00)
[2018-01-20 11:01] LABS: BANDS 47 % (0-6); CORRECTED NUCLEATED RBC 6 /100 WBC (0-0); LYMPHOCYTES 8 % (9-44); METAMYELOCYTES 4 % (0-1); MONOCYTES 4 % (0-8); MYELOCYTES 3 % (0-0); NEUTROPHIL # MANUAL DIFF 18.7 TH/MM3 (1.8-7.7); NUCLEATED RED BLOOD CELL 6 (0-0); POLYS (SEG NEUTROPHILS) 34 % (16-70)
[2018-01-20 11:02] LABS: ACANTHOCYTES 1+ (NORMAL); KERATOCYTES OCC (NORMAL); OVALOCYTES 1+ (NORMAL); TOXIC GRANULATION 1+ (NORMAL)
--- NOTE | 2018-01-20 11:03 | HHI.CCPN ---
Subjective Remarks/Hospital Course 01/20: Patient discharged yesterday and returns to ED with distended abdomen and bowel pattern of severe ileus vs obstruction. NG removed 1300 mls and abdomen remains distended. Right groin is mildly erythematous. Will cover with broad abx for bowel and wound, continue gastric decompression. Hypotensive still after 1000 ml infusion, severe aortic stenosis and depressed LV function. Start levophed while undergoing fluid resuscitation. 01/20 1045 hours: Arterial and venous lines placed left groin by Dr. Staton while I have continued resuscitation efforts. Patient with wide complex rhythm chronically but now having brief runs of possible v-tach. Blood pressure remains low in the 65 - 70 range.Levophed increased and neosynephrine started. ABG reflects metabolic acidosis and bicarb replacement initiated. Pulse oximetry saturation remains 100% but respiratory rate has increased to 28-32 range. Broad spectrum abx started. K 4.8. I arranged to orally intubate patient and connected patient to code cart monitor. CPR was instituted due to persistent SBP 50 range now and unresponsive to vasopressor bolus therapy. Full code with ACLS protocol and orotracheal intubation initiated (See code sheet). Rhythm deteriorated to PEA. Restored to perfusing rhythm for two brief periods and after about 45 mins of CPR a perfusing rhythm was restored on levophed and neosynephrine infusions. I spoke with the son and patient's at the bedside and informed them of the events. Objective Vital Signs Date Time Temp Pulse Resp B/P (MAP) Pulse Ox O2 Delivery O2 Flow Rate FiO2 01/20/18 09:45 92 100 01/20/18 08:15 01/20/18 08:09 97 Room Air 01/20/18 07:47 22 01/20/18 03:38 98.0 Intake and Output 01/20/18 01/20/18 01/21/18 08:00 16:00 00:00 Output Total 900 ml Balance -900 ml Result Diagram: 01/20/1840401/20/18404 Other Results Laboratory Tests Test 01/20/18 09:21 01/20/18 10:03 Blood Gas Puncture Site ART LINE ADIN Blood Gas Patient Temperature 98.6 98.6 Blood Gas HCO3 14 mmol/L (22-26) 17 mmol/L (22-26) Blood Gas Base Excess -11.2 mmol/L (-2-2) -11.3 mmol/L (-2-2) Blood Gas Oxygen Saturation 96 % (90-100) 98 % (90-100) Arterial Blood pH 7.27 (7.380-7.420) 7.10 (7.380-7.420) Arterial Blood Partial Pressure CO2 32 mmHg (38-42) 56 mmHg (38-42) Arterial Blood Partial Pressure O2 176 mmHg (61-120) 367 mmHg (61-120) Arterial Blood Oxygen Content 10.8 Vol % (12.0-20.0) 10.6 Vol % (12.0-20.0) Arterial Blood Carboxyhemoglobin 2.0 % (0-4) 1.2 % (0-4) Arterial Blood Methemoglobin 1.0 % (0-2) 0.8 % (0-2) Blood Gas Hemoglobin 7.7 G/DL (12.0-16.0) 7.0 G/DL (12.0-16.0) Oxygen Delivery Device MASK VENTILATOR Blood Gas Inspired Oxygen 100 % 100 % Blood Gas Ventilator Setting SEE COMMENTS Objective Remarks Physical Exam Physical Exam Vital Signs Physical Exam GENERAL: Ill-appearing SKIN/MSK/VASC: Tepid and dry. Left upper arm fistula with palpable thrill. HEAD: Atraumatic. Normocephalic. EYES: R pupil 3 mm and minimally reactive. L pupil 4 mm and nonreactive. ENT: No nasal bleeding or discharge. NG tube in place. Orotracheally intubated. NECK: Trachea midline. Airway widely patent. CARDIOVASCULAR: Regular rate and rhythm. 4/6 systolic murmur right sternal border. + JVD. RESPIRATORY: Mechanical ventilation. Good bilateral air movement. Diffuse crackles. GASTROINTESTINAL: Abdomen soft but distended, Tender to palpation. Bowel sounds sparse, obstructive pattern. NEUROLOGICAL: GCS 3T. Sedated. A/P Assessment and Plan Assessment and Plan Assessment and Plan 1. Severe sepsis. 2. Bowel obstruction. 3. Metabolic acidosis. 4. Encephalopathy, metabolic. 5. ESRD. 6. Severe Aortic Stenosis. 7. Cardiopulmonary Arrest. Plan ID - Vanc and cefepime, add flagyl - NS one liter - Levophed - Serial lactic acid. NEURO: - Serial exam RESP: - PRVC vent mode CV: Hypertension Aortic stenosis status post aortic valve replacement now with severe prosthetic stenosis. 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 Bowers Cardiac catheterization 01/11/[address] Cox GI: NPO - NG to LIS. FEN/RENAL: ESRD Secondary hyperparathyroidism Received calcium, bicarbonate 50 mEq, insulin 10 units IV, amp D50, albuterol, Kayexalate in the emergency department. Contacted Dr. Enrique who will proceed with emergent HD. Patient's primary crystal grinder is Dr. Dickinson in [place]. Has left upper extremity fistula which has recently been functioning following intervention by Dr. Dannie Verdugo. Continue Renvela 800 mg by mouth 3 times a day. Sensipar 60 po daily Patient still makes some urine. HEME: Thrombocytopenia Epogen 10,000 units with dialysis. ENDO: Diabetes mellitus Hold tradjenta 5 mg po daily Monitor bedside glucose. Initiate low-dose insulin sliding scale as indicated. Hypoglycemia on admission, start D10W drip. PROPH: SCDs for DVT prophylaxis. Famotidine for stress ulcer prophylaxis. ACCESS: Peripheral IV providing adequate access at this time. Left upper extremity fistula Place emergency groin lines, a-line # 1, CVL # 1 Overall impression: Patient is unstable and critically ill with severe sepsis and metabolic acidosis presently undergoing resuscitation with vasopressors, inotropes, fluid infusion, and electrolyte correction. Cardiac arrest required over 45 minutes to resuscitate. Severe acidosis, possibly indicative of ischemic bowel. Patient is presently much too unstable to tolerate a laparotomy or travel for additional scans. Follow lactic acid closely. Will need dialysis when stable. Full code status. Critical care 90 mins aside from procedures Dav Dunlap MD Jan 20, 2018 11:03
[2018-01-20] MEDS: PHENYLEPHRINE 40 MG in D5W 500 ML IV PRN ×4 (11:32→21:04)
[2018-01-20] MEDS: AMIODARONE INJ 450 MG in SODIUM CHLOR 0.9% (EXCEL) INJ 250 ML IV PRN ×2 (11:36→18:21)
[2018-01-20] MEDS ORDERED: SODIUM BICARBONATE 8.4% INJ 50 MEQ/50 ML SYR IV PUSH ONE (12:00)
[2018-01-20] MEDS: SODIUM BICARBONATE 8.4% INJ 150 MEQ in DEXTROSE 5% IN WATE 1000ML INJ 1,000 ML IV SCH ×4 (12:18→21:12)
--- NOTE | 2018-01-20 13:42 | PD.PROCEDR ---
Procedure Note Procedure Procedure: Arterial Line Placement Diagnosis: circulatory shock Indications: hypotension Consent: not obtained. Procedure was emergent since patient was hypotensive Description of the Procedure: The left groin area was prepped and draped sterilely. 1% lidocaine was used for local anesthesia. The left femoral artery was located using ultrasound and a needle was advanced into the artery. An 18 gauge catheter was advanced into the artery using a modified Seldinger technique. The catheter was sutured to the skin and a sterile dressing was applied. The catheter was connected to a pressure transducer and an arterial waveform was noted. There were no immediate complications noted. There was minimal EBL. I personally performed the procedure. Juan Staton MD Jan 20, 2018 13:42
--- NOTE | 2018-01-20 13:47 | PD.PROCEDR ---
Central Line Procedure REASON FOR PROCEDURE Central venous access PROCEDURE PERFORMED Central line placement: left femoral vein CONSENT Informed consent for procedure was not obtained since the procedure was emergent and there was no family readily available at bedside. ANESTHESIA Local injection of 1% Lidocaine DESCRIPTION OF THE PROCEDURE The patient was placed in supine, mild Trendelenburg position. The area was exposed and cleansed with ChloraPrep, times two. Large sterile drape was used to cover the patient, with the site exposed, under sterile conditions including cap, face mask, sterile gown, and sterile gloves. On single attempt, the introducer needle was inserted with negative pressure in syringe and venous flash was obtained. The guide wire was then advanced without any restriction and the needle was removed. The dilator was used without any complications. Using Seldinger technique the catheter was advanced over the guide wire to a depth of 20 centimeters. The guide wire was removed. All ports were aspirated with dark venous blood return and flushed easily with sterile saline. All ports were capped. Antibiotic disc was placed around central line at puncture site. The central line was secured to the skin with two interrupted 2.0 silk sutures. The area was bandaged with sterile see-through central line bandage. RADIOLOGICAL DATA Ultrasound guidance was used to locate the left femoral vein. Doppler/color flow was used to confirm venous flow. Correct guidewire placement was verified using ultrasound. COMPLICATIONS: No apparent complications. ESTIMATED BLOOD LOSS: Less than 1 cc. Juan Staton MD Jan 20, 2018 13:47
[2018-01-20 16:16] LABS: BASOPHIL % 0.1 % (0.0-2.0); EOSINOPHIL # 0.7 TH/MM3 (0-0.4); EOSINOPHIL % 2.6 % (0.0-4.0); HEMATOCRIT 25.5 % (39.0-51.0); HEMOGLOBIN 8.5 GM/DL (13.0-17.0); LYMPH % 1.4 % (9.0-44.0); LYMPHOCYTE # 0.4 TH/MM3 (1.0-4.8); MEAN CELL VOLUME 99.9 FL (80.0-100.0); MEAN CORPUSCULAR HEMOGLOBIN 33.3 PG (27.0-34.0); MEAN CORPUSCULAR HGB CONC 33.4 % (32.0-36.0); MEAN PLATELET VOLUME 9.9 FL (7.0-11.0); MONOCYTE # 0.6 TH/MM3 (0-0.9); NEUT % 93.9 % (16.0-70.0); PLATELET COUNT 178 TH/MM3 (150-450); RED BLOOD COUNT 2.56 MIL/MM3 (4.50-5.90); RED CELL DISTRIBUTION WIDTH 17.7 % (11.6-17.2); WHITE BLOOD COUNT 27.7 TH/MM3 (4.0-11.0)
[2018-01-20 16:56] LABS: ALBUMIN 2.1 GM/DL (3.4-5.0); BICARBONATE 21.1 MEQ/L (21.0-32.0); CALCIUM 7.4 MG/DL (8.5-10.1); CALCIUM-PROTEIN CORRECTED 8.6 MG/DL (8.5-10.1); CREATININE 5.65 MG/DL (0.60-1.30); TOTAL BILIRUBIN ADULT 6.6 MG/DL (0.2-1.0); TOTAL PROTEIN 4.9 GM/DL (6.4-8.2)
--- NOTE | 2018-01-20 16:56 | RADRPT ---
EXAM DATE/TIME: 01/20/2018 15:01 [facility] COMPARISON: CHEST SINGLE AP, January 20, 2018, 4:12. INDICATIONS : Intubation. MEDICAL HISTORY : Cardiovascular disease. Diabetes mellitus type 2. Dialysis. SURGICAL HISTORY : CABG. Cardiac catheterization. ENCOUNTER: Initial ACUITY: 1 day PAIN SCORE: Non-responsive. LOCATION: Bilateral chest FINDINGS: Portable AP view of the chest demonstrates a normal-sized cardiac silhouette with calcification of th e aorta in this patient post median sternotomy. Nasogastric tube is looped in the stomach. Endotrache al tube distal tip extends into the right main bronchus by approximately 2.9 cm. Multiple EKG lines o verlie the patient. Lungs are underinflated and there are mild interstitial opacities in the mid-lowe r lung zones bilaterally. No pneumothorax or pleural effusion is seen. Bones demonstrate no acute fin ding. Left axillary and proximal arm vascular stents remain present. CONCLUSION: 1. The endotracheal tube is malpositioned. It extends into the right main bronchus by approximately 2 .9 cm. Suggest retraction by approximately 4.5 cm. This finding was telephoned to the patient's nurse , Alesia Morales, via telephone on 01/20/2018 at 4: 2. 53 PM. 3. Nasogastric tube is looped in the stomach. 4. Mild interstitial opacities in a perihilar lower lung zone distribution bilaterally which could in dicate interstitial pulmonary edema. Hossein Doyle MD on January 20, 2018 at 16:50 Board Certified Radiologist. This report was verified electronically.
[2018-01-20 17:15] LABS: BANDS 55 % (0-6); CORRECTED NUCLEATED RBC 6 /100 WBC (0-0); LYMPHOCYTES 4 % (9-44); METAMYELOCYTES 1 % (0-1); MONOCYTES 9 % (0-8); MYELOCYTES 4 % (0-0); NEUTROPHIL # MANUAL DIFF 24.1 TH/MM3 (1.8-7.7); NUCLEATED RED BLOOD CELL 6 (0-0); POLYS (SEG NEUTROPHILS) 27 % (16-70)
[2018-01-20 17:16] LABS: DOHLE BODIES PRESENT (NONE SEEN); TOXIC GRANULATION 1+ (NORMAL); TOXIC VACUOLATION PRESENT (NONE SEEN)
[2018-01-20 17:17] LABS: OVALOCYTES 1+ (NORMAL)
[2018-01-20] MEDS: SODIUM CHLOR 0.9% 1000 ML INJ 1,000 ML OTHER PRN (17:48)
[2018-01-20] MEDS: GELATIN 12 MM/7 MM FOAM TOP PRN (17:48)
--- NOTE | 2018-01-20 18:06 | MB ---
cc: GABRIELLA APPLE MD DATE OF CONSULTATION: 01/20/2018. REASON FOR CONSULTATION: End-stage renal disease management. HISTORY OF PRESENT ILLNESS: This is a 67-year-old male with a history of end-stage renal disease. He is on hemodialysis Monday, Monday and Monday as an outpatient and follows up with Dr. Richard in [place]. The patient was admitted here recently and discharged just one day ago. He presented with a right groin pseudoaneurysm post recent cardiac catheterization with repair of the artery during that admission. The patient was discharged and had some ongoing abdominal pains after his surgical repair of the femoral artery and he presented here with sepsis and hypotension with a presumptive bowel ischemia this time. The patient coded earlier today and now is intubated with multiple pressors for pressor support. He had some ongoing acidosis and a pH level of 7.0 during the time of the code. Nephrology was consulted for evaluation of hemodialysis management. He had an elevated potassium level of 5.2 earlier today. Apparently his last hemodialysis was done on . At this point, he is intubated on multiple pressors and is unable to give a history and the history was reviewed from the chart. REVIEW OF SYSTEMS: Unobtainable as the patient is intubated. ALLERGIES: 1. HEPARIN. 2. CONTRAST. 3. MORPHINE. PAST MEDICAL HISTORY: 1. End-stage renal disease on hemodialysis Tuesdays, and Saturdays follows up with Dr. Richard in [place]. 2. History of aortic valve replacement with prosthetic stenosis and plan for future AVR replacement. 3. History of tricuspid regurgitation. 4. Aortic stenosis. 5. Aortic regurgitation. 6. Congestive heart failure. 7. Diabetes. 8. Hypertension. PAST SURGICAL HISTORY: 1. Aortic valve replacement. 2. Upper extremity AV fistula with previous stent grafts. MEDICATIONS AT HOME: 1. Coreg. 2. Lasix. 3. Tradjenta. 4. Sensipar. FAMILY HISTORY: Noncontributory. SOCIAL HISTORY: The patient is a smoker, and lives in [place]. No alcohol use. PHYSICAL EXAMINATION: GENERAL: At the time of evaluation, the patient is intubated and sedated. HEAD, EYES, EARS, NOSE, THROAT: Neck soft supple. CARDIAC: Regular rate and rhythm. PULMONARY: Decreased breath sounds and coarse rhonchi. ABDOMEN: The abdomen is soft, distended, decreased breath sounds. EXTREMITIES: Trace edema. LABORATORY FINDINGS: White count 21.2, hemoglobin 8.9, hematocrit 25.5 with a platelet count of 174,000. Sodium 139, potassium 4.3, chloride 99, bicarbonate 27.8, BUN 48, creatinine 6.6, glucose of 163. PTH is 384. Patient with a pH of 7.0 recent blood gas during code. ASSESSMENT AND PLAN: 1. End-stage renal disease: The patient is on hemodialysis as an outpatient Tuesdays, and Saturdays. He had his last dialysis apparently here on . Will do dialysis today. The patient has some signs of acidosis with moderate hypokalemia. Dialysis will be challenging. Will attempt dialysis in the setting of all of his pressors with minimal ultrafiltration and repeat dialysis tomorrow as needed. He has an excellent functioning left upper extremity AV fistula. Should the patient not be able to tolerate dialysis with hemodialysis may need insertion of a catheter for CRRT however will attempt with hemodialysis at this point to further stabilize the patient status post code earlier today for PEA arrest. 2. Acidosis. The patient has been on a bicarbonate drip. His bicarbonate level was 19 earlier. Will do dialysis to help with acidosis in the setting of recent code. Continue to closely monitor. 3. Hyperkalemia with potassium of 5.2. Will do hemodialysis today with 2K bath as tolerated. 4. Recent right femoral artery pseudoaneurysm. The patient had repair of the pseudoaneurysm. Continue to follow up. Stable at this point. The patient's hemoglobin is 7.7. Continue to closely monitor and transfuse as needed. 5. Questionable bowel ischemia. The patient has apparent ileus with obstruction. Given significant acidosis in the setting of shock, there is a concern for possible bowel ischemia. Continue to follow up with critical care and supportive care. Adjust medications and antibiotics as tolerated. 6. Respiratory failure. The patient is intubated. Will do hemodialysis with minimal UF today however will further do UF tomorrow if the patient is stable. 7. History of aortic stenosis. The patient had been placed for a conventional re-do of the aortic valve repair. Continue to monitor. 8. Diabetes. Continue to monitor with sliding scale insulin. MD CAROL Mccullough/DEAN /2:28 PM /5:48 PM MTDD
[2018-01-20] MEDS: CHLORHEXIDINE 0.12% (ORAL KIT) 15 ML CUP MT SCH (20:00)
[2018-01-20] MEDS ORDERED: MILRINONE INJ 20 MG in SODIUM CHLORIDE 0.9% INJ 80 ML IV SCH (20:51)
[2018-01-20] MEDS: DOBUTamine PREMIX DRIP 250 ML IV PRN (21:34)
[2018-01-20] MEDS ORDERED: ALBUMIN 5% INJ 500 ML IV ONE ×2 (22:19→23:00)
[2018-01-20] MEDS: PHENYLEPHRINE HCL 80 MG/D5W 492 ML ADMIX IV PRN ×2 (22:46)
[2018-01-20] MEDS: SODIUM CHLOR 0.9% 1000 ML INJ 1,000 ML IV SCH (23:00)
[2018-01-20] MEDS: NOREPINEPHRINE 8 MG/D5W 250 ML IV PRN ×2 (23:13)
[2018-01-21] VITALS (22 sets, daily range): BP systolic 77–94; BP diastolic 29–50; PULSE 84–125; RESP 26–29; TEMP 98.2–99.5; O2SAT 96–100
[2018-01-21] MEDS: SODIUM CHLOR 0.9% 1000 ML INJ 1,000 ML IV SCH (00:01)
[2018-01-21] MEDS ORDERED: SODIUM BICARBONATE 8.4% INJ 50 MEQ/50 ML SYR ONE (01:02)
[2018-01-21] MEDS ORDERED: DEXTROSE 10% INJ 500 ML IV SCH (01:10)
[2018-01-21] MEDS ORDERED: SODIUM BICARBONATE 8.4% SOLN 50 MEQ/50 ML VIAL IV ONE (01:10)
[2018-01-21] MEDS: PHENYLEPHRINE HCL 80 MG/D5W 492 ML ADMIX IV PRN ×10 (02:00→16:20)
[2018-01-21] MEDS: NOREPINEPHRINE 8 MG/D5W 250 ML IV PRN ×12 (02:00→17:45)
[2018-01-21] MEDS: metroNIDAZOLE 500 MG INJ 100 ML IV SCH ×3 (02:00→18:38)
[2018-01-21] MEDS: CHLORHEXIDINE GLUCONATE 2 % 1 PACK (2 CLOTHS) TOP SCH (03:31)
[2018-01-21] MEDS: DOBUTamine PREMIX DRIP 250 ML IV PRN ×4 (04:35→20:19)
[2018-01-21 04:38] LABS: AUTOMATED NEUTROPHIL # 31.7 TH/MM3 (1.8-7.7); BASOPHIL # 0.1 TH/MM3 (0-0.2); BASOPHIL % 0.2 % (0.0-2.0); EOSINOPHIL # 0.2 TH/MM3 (0-0.4); EOSINOPHIL % 0.7 % (0.0-4.0); HEMATOCRIT 21.2 % (39.0-51.0); LYMPH % 1.5 % (9.0-44.0); LYMPHOCYTE # 0.5 TH/MM3 (1.0-4.8); MEAN CORPUSCULAR HEMOGLOBIN 32.6 PG (27.0-34.0); MEAN CORPUSCULAR HGB CONC 32.9 % (32.0-36.0); MONO % 2.3 % (0.0-8.0); MONOCYTE # 0.8 TH/MM3 (0-0.9); NEUT % 95.3 % (16.0-70.0); PLATELET COUNT 115 TH/MM3 (150-450); RED BLOOD COUNT 2.14 MIL/MM3 (4.50-5.90); RED CELL DISTRIBUTION WIDTH 18.4 % (11.6-17.2); WHITE BLOOD COUNT 33.3 TH/MM3 (4.0-11.0)
[2018-01-21] MEDS: SODIUM BICARBONATE 8.4% INJ 150 MEQ in DEXTROSE 5% IN WATE 1000ML INJ 1,000 ML IV SCH ×4 (05:22→21:50)
[2018-01-21 05:31] LABS: ALBUMIN 2.1 GM/DL (3.4-5.0); BICARBONATE 25.6 MEQ/L (21.0-32.0); CALCIUM 7.4 MG/DL (8.5-10.1); CREATININE 4.78 MG/DL (0.60-1.30); TOTAL BILIRUBIN ADULT 6.7 MG/DL (0.2-1.0); TOTAL PROTEIN 4.3 GM/DL (6.4-8.2)
[2018-01-21] MEDS: EPINEPHrine 2 MG/D5W 250 ML IV PRN ×4 (05:32→14:14)
[2018-01-21 06:19] LABS: BANDS 20 % (0-6); CORRECTED NUCLEATED RBC 5 /100 WBC (0-0); LYMPHOCYTES 4 % (9-44); METAMYELOCYTES 2 % (0-1); MONOCYTES 1 % (0-8); MYELOCYTES 1 % (0-0); NUCLEATED RED BLOOD CELL 5 (0-0); POLYS (SEG NEUTROPHILS) 70 % (16-70)
[2018-01-21 06:21] LABS: DOHLE BODIES PRESENT (NONE SEEN); TOXIC GRANULATION 2+ (NORMAL); TOXIC VACUOLATION PRESENT (NONE SEEN)
[2018-01-21 06:28] LABS: SPHEROCYTES 1+ (NORMAL)
--- NOTE | 2018-01-21 07:36 | HHI.CCPN ---
Subjective Remarks/Hospital Course 01/20: Patient discharged yesterday and returns to ED with distended abdomen and bowel pattern of severe ileus vs obstruction. NG removed 1300 mls and abdomen remains distended. Right groin is mildly erythematous. Will cover with broad abx for bowel and wound, continue gastric decompression. Hypotensive still after 1000 ml infusion, severe aortic stenosis and depressed LV function. Start levophed while undergoing fluid resuscitation. 01/20 1045 hours: Arterial and venous lines placed left groin by Dr. Staton while I have continued resuscitation efforts. Patient with wide complex rhythm chronically but now having brief runs of possible v-tach. Blood pressure remains low in the 65 - 70 range.Levophed increased and neosynephrine started. ABG reflects metabolic acidosis and bicarb replacement initiated. Pulse oximetry saturation remains 100% but respiratory rate has increased to 28-32 range. Broad spectrum abx started. K 4.8. I arranged to orally intubate patient and connected patient to code cart monitor. CPR was instituted due to persistent SBP 50 range now and unresponsive to vasopressor bolus therapy. Full code with ACLS protocol and orotracheal intubation initiated (See code sheet). Rhythm deteriorated to PEA. Restored to perfusing rhythm for two brief periods and after about 45 mins of CPR a perfusing rhythm was restored on levophed and neosynephrine infusions. I spoke with the son and patient's at the bedside and informed them of the events. 01/21: Still requiring large inotropic and vasopressor support at levels incompatible with survival. Hemodialysis helped us control acid/base balance last evening. Perfusion remains marginal at best, gas exchange is acceptable. Clinical course is very unstable. Operative exploration of the abdomen would not be tolerated under any circumstances so I have not asked the general surgeons to weigh in. I have discussed care in detail with the nephrology team and we will make arrangements to continue dialysis.Patient does open his eyes and appears to track with eyes and hear his family's voices. Objective Vital Signs Date Time Temp Pulse Resp B/P (MAP) Pulse Ox O2 Delivery O2 Flow Rate FiO2 01/21/18 06:00 89 01/21/18 05:44 01/21/18 05:43 98.4 26 99 01/21/18 03:12 35 01/20/18 19:00 Mechanical Ventilator Intake and Output 01/21/18 01/21/18 01/22/18 08:00 16:00 00:00 Intake Total 4584 ml Balance 4584 ml Result Diagram: 01/21/18 0415 01/21/18 0415 Other Results Laboratory Tests Test 01/20/18 09:21 01/20/18 10:03 01/20/18 11:20 01/20/18 15:13 Blood Gas Puncture Site ART LINE ADIN ART LINE ART LINE Blood Gas Patient Temperature 98.6 98.6 98.6 98.6 Blood Gas HCO3 14 mmol/L (22-26) 17 mmol/L (22-26) 17 mmol/L (22-26) 17 mmol/L (22-26) Blood Gas Base Excess -11.2 mmol/L (-2-2) -11.3 mmol/L (-2-2) -11.8 mmol/L (-2-2) -9.4 mmol/L (-2-2) Blood Gas Oxygen Saturation 96 % (90-100) 98 % (90-100) 86 % (90-100) 97 % ( 90-100) Arterial Blood pH 7.27 (7.380-7.420) 7.10 (7.380-7.420) 7.08 (7.380-7.420) 7.22 (7.380-7.420) Arterial Blood Partial Pressure CO2 32 mmHg (38-42) 56 mmHg (38-42) 58 mmHg (38-42) 44 mmHg (38-42) Arterial Blood Partial Pressure O2 176 mmHg (61-120) 367 mmHg (61-120) 82 mmHg (61-120) 194 mmHg (61-120) Arterial Blood Oxygen Content 10.8 Vol % (12.0-20.0) 10.6 Vol % (12.0-20.0) 8.8 Vol % (12.0-20.0) 11.3 Vol % (12.0-20.0) Arterial Blood Carboxyhemoglobin 2.0 % (0-4) 1.2 % (0-4) 1.6 % (0-4) 1.5 % (0-4) Arterial Blood Methemoglobin 1.0 % (0-2) 0.8 % (0-2) 1.0 % (0-2) 1.1 % (0-2) Blood Gas Hemoglobin 7.7 G/DL (12.0-16.0) 7.0 G/DL (12.0-16.0) 7.2 G/DL (12.0-16.0) 7.9 G/DL (12.0-16.0) Oxygen Delivery Device MASK VENTILATOR VENTILATOR VENTILATOR Blood Gas Inspired Oxygen 100 % 100 % 50 % 70 % Blood Gas Ventilator Setting SEE COMMENTS PRVC/AC PRVC/AC Test 01/20/18 20:50 01/21/18 04:43 Blood Gas Puncture Site ART LINE ART LINE Blood Gas Patient Temperature 98.6 98.6 Blood Gas HCO3 20 mmol/L (22-26) 23 mmol/L (22-26) Blood Gas Base Excess -4.6 mmol/L (-2-2) -1.0 mmol/L (-2-2) Blood Gas Oxygen Saturation 98 % (90-100) 96 % (90-100) Arterial Blood pH 7.39 (7.380-7.420) 7.39 (7.380-7.420) Arterial Blood Partial Pressure CO2 33 mmHg (38-42) 39 mmHg (38-42) Arterial Blood Partial Pressure O2 249 mmHg (61-120) 130 mmHg (61-120) Arterial Blood Oxygen Content 13.1 Vol % (12.0-20.0) 9.6 Vol % (12.0-20.0) Arterial Blood Carboxyhemoglobin 1.6 % (0-4) 2.2 % (0-4) Arterial Blood Methemoglobin 0.9 % (0-2) 1.0 % (0-2) Blood Gas Hemoglobin 9.1 G/DL (12.0-16.0) 6.9 G/DL (12.0-16.0) Oxygen Delivery Device VENTILATOR VENTILATOR Blood Gas Ventilator Setting PRVC/AC PRVC/AC Blood Gas Inspired Oxygen 50 % 35 % Objective Remarks Physical Exam Physical Exam Vital Signs Physical Exam GENERAL: Ill-appearing, poorly perfused. SKIN/MSK/VASC: Warm and dry. There is a large ecchymosis overlying right groin extending proximal to the inguinal ligament and down right anterior medial thigh. Groin incision right is warm, erythematous. Foot is warm with palpable DP pulse and PT pulse. Left upper arm fistula with palpable thrill. HEAD: Atraumatic. Normocephalic. EYES: R pupil 2mm and reactive. L pupil 3 mm and nonreactive. No scleral icterus. No injection or drainage. ENT: No nasal bleeding or discharge. Mucous membranes pink and moist. NECK: Trachea midline. Orally intubated. CARDIOVASCULAR: Regular rate and rhythm. 4/6 systolic murmur right sternal border and 3/6 diastolic murmur left lower sternal border. ++ JVD. RESPIRATORY: Breathing labored with accessory muscle use. Clear to auscultation bilaterally. Sats 100% on pulse ox. GASTROINTESTINAL: Abdomen distended, few bowel sounds. Milsly tender to palpation, no peritoneal irritation. Bowel sounds sparse, obstructive pattern. NEUROLOGICAL: Lethargic. Motor grossly within normal limits. Upper Sorbian-speaking. A/P Assessment and Plan Assessment and Plan Assessment and Plan 1. Severe sepsis. 2. Bowel obstruction. 3. Metabolic acidosis. 4. Encephalopathy, metabolic. 5. ESRD. 6. Severe Aortic Stenosis. 7. Cardiopulmonary Arrest. Plan: ID - Vanc and cefepime, add flagyl - NS one liter - Levophed - Serial lactic acid. NEURO: - Serial exam RESP: - PRVC vent mode CV: Cardiogenic Shock s/p cardiac arrest requiring 50 mins resuscitation Aortic stenosis status post aortic valve replacement now with severe prosthetic stenosis. 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 Bowers Cardiac catheterization 01/11/[address] Cox GI: NPO - NG to LIS. FEN/RENAL: ESRD Secondary hyperparathyroidism Received calcium, bicarbonate 50 mEq, insulin 10 units IV, amp D50, albuterol, Kayexalate in the emergency department. Contacted Dr. Enrique who will proceed with emergent HD. Patient's primary chief design drafter is Dr. Dickinson in [place]. Has left upper extremity fistula which has recently been functioning following intervention by Dr. Dannie Verdugo. Continue Renvela 800 mg by mouth 3 times a day. Sensipar 60 po daily Patient still makes some urine. HEME: Thrombocytopenia Epogen 10,000 units with dialysis. ENDO: Diabetes mellitus Hold tradjenta 5 mg po daily Monitor bedside glucose. Initiate low-dose insulin sliding scale as indicated. Hypoglycemia on admission, start D10W drip. Slowly taper. PROPH: SCDs for DVT prophylaxis. Famotidine for stress ulcer prophylaxis. ACCESS: Peripheral IV providing adequate access at this time. Left upper extremity fistula Place emergency groin lines, a-line # 2, CVL # 2 Overall impression: Patient is unstable and critically ill with severe sepsis and metabolic acidosis still undergoing resuscitation with vasopressors, inotropes, fluid infusion, and electrolyte correction. Cardiac arrest required over 45 minutes to resuscitate. Severe acidosis, possibly indicative of ischemic bowel. Patient is presently much too unstable to tolerate a laparotomy or travel for additional scans. Hemodialysis performed with improvement of acid/ base balance. Follow lactic acid closely. Primary pathophysiology is cardiogenic shock from severe aortic stenosis and left ventricular dysfunction. Abdomen appears less problematic today - source of sepsis unclear, possibly right groin. He remains unstable and critically ill. Full code status. Critical care 65 mins aside from procedures Dav Dunlap MD Jan 21, 2018 07:36
[2018-01-21] MEDS: CHLORHEXIDINE 0.12% (ORAL KIT) 15 ML CUP MT SCH ×2 (08:00→20:00)
[2018-01-21] MEDS: CEFEPIME INJ 2,000 MG in SODIUM CHLORIDE 0.9% INJ 100 ML IV SCH (08:28)
[2018-01-21] MEDS: FAMOTIDINE 20 MG TAB PO SCH ×2 (08:32→20:17)
[2018-01-21] MEDS: SODIUM CHLORIDE 0.9% FLUSH 10 ML FLUSH IV FLUSH SCH ×2 (08:32→20:17)
[2018-01-21] MEDS: DOCUSATE SODIUM 50 MG/SENNA 8.6 MG TAB PO SCH ×2 (08:33→20:17)
[2018-01-21] MEDS ORDERED: VANCOMYCIN INJ 1,250 MG in SODIUM CHLOR 0.9% 250 ML INJ 250 ML IV ONE (09:00)
[2018-01-21 09:07] LABS: TROPONIN I 9.82 NG/ML (0.02-0.05)
[2018-01-21] MEDS: AMIODARONE INJ 450 MG in SODIUM CHLOR 0.9% (EXCEL) INJ 250 ML IV PRN (11:51)
[2018-01-21] MEDS: SODIUM CHLOR 0.9% 1000 ML INJ 1,000 ML OTHER PRN ×2 (12:01→20:20)
[2018-01-21] MEDS: ALBUMIN 25% INJ 100 ML IV PRN ×2 (12:01→12:02)
[2018-01-21] MEDS: GELATIN 12 MM/7 MM FOAM TOP PRN (12:01)
[2018-01-21] MEDS: MANNITOL 12.5 GM/50 ML VIAL IV PRN (12:01)
--- NOTE | 2018-01-21 13:23 | HHI.NPPN ---
Subjective Additional Remarks Remains intubated, on pressors. Tolerated HD yesterday, seen on HD today. Objective Data Data 01/21/18 01/22/18 19:00 07:00 Intake Total 2981 ml Balance 2981 ml IV Total 2531 ml Packed Cells 400 ml Blood Product IV Normal Saline Flush 50 ml Vital Signs Date Time Temp Pulse Resp B/P (MAP) Pulse Ox O2 Delivery O2 Flow Rate FiO2 01/21/18 12:40 89 83/34 01/21/18 12:05 87 83/35 01/21/18 11:55 97 35 01/21/18 11:51 82 80/31 01/21/18 10:05 93 95/39 01/21/18 10:00 93 01/21/18 09:29 98 35 01/21/18 08:59 87 83/31 01/21/18 08:58 87 80/31 01/21/18 08:00 89 01/21/18 08:00 98.7 88 26 78/36 (50) 100 01/21/18 07:45 98.7 85 26 86/34 99 01/21/18 07:00 97 Mechanical Ventilator 35 01/21/18 06:00 89 01/21/18 05:44 01/21/18 05:43 98.4 86 26 79/29 99 01/21/18 05:42 98.4 87 26 77/29 99 01/21/18 05:32 89 78/29 01/21/18 05:27 92 83/32 01/21/18 05:22 89 81/30 01/21/18 04:35 88 81/30 01/21/18 04:00 90 01/21/18 04:00 98.5 90 26 86/32 (50) 100 01/21/18 03:12 100 35 01/21/18 02:00 88 01/21/18 02:00 88 80/31 01/21/18 02:00 88 80/31 01/21/18 00:18 100 35 01/21/18 00:00 98.3 102 27 84/36 (52) 100 01/21/18 00:00 102 01/20/18 23:25 102 81/35 01/20/18 23:13 104 82/36 01/20/18 22:46 107 86/36 01/20/18 22:13 108 85/36 2/24/18 22:03 109 95/35 01/20/18 22:00 109 01/20/18 21:44 111 97/39 01/20/18 21:34 108 92/38 01/20/18 21:04 108 93/38 01/20/18 20:00 111 01/20/18 20:00 98.8 109 26 110/52 (71) 100 01/20/18 19:26 100 50 01/20/18 19:00 100 Mechanical Ventilator 60 01/20/18 18:21 111 106/53 01/20/18 18:20 110 100/52 01/20/18 18:06 112 96/48 01/20/18 18:00 112 01/20/18 16:40 104 90/50 01/20/18 16:00 99.2 104 26 94/50 (65) 99 01/20/18 16:00 104 01/20/18 15:29 99 60 01/20/18 14:00 104 01/20/18 13:37 106 114/57 -: 01/21/18 0415 01/21/18 0415 Microbiology 01/21/18 Aerobic Blood Culture, Received Pending 01/21/18 Anaerobic Blood Culture, Received Pending 01/21/18 Aerobic Blood Culture, Received Pending 01/21/18 Anaerobic Blood Culture, Received Pending Physical Exam General Appearance: No Acute Distress Neck Neck Exam: Neck Supple Pulmonary Resp Exam: Decreased Bases, Diminished Breath Sounds Cardiology CV Exam: Regular Gastrointestinal/Abdomen GI Exam: Soft Integumentary Skin Exam: Dry, Intact Extremeties Extremities Exam: Trace Edema Neurologic Neuro Exam: Sedated Assessment/Plan Problem List: (1) ESRD on dialysis ICD Codes: N18.6 - End stage renal disease; Z99.2 - Dependence on renal dialysis Plan: ESRD TTS - F/U in [place]. Presented here after recent d/c with severe sepsis, lactic acidosis, recent femoral artery pseudoaneurysm post cardiac cath. Possible bowel necrosis now? PEA arrest and coded yesterday - now on multiple pressors, +11L HD done yesterday, and tolerating HD today. 2L UF today with pressors on board. Considered for CRRT - however relatively unstable for line placement and AVF used for HD. Tolerated HD relatively well yesterday and today - plan next HD tomorrow. Should the patient not be able to tolerate hemodialysis, may need insertion of a catheter for CRRT Poor prognosis s/p PEA arrest, especially if necrotic bowel is present. Continue to follow with critical care. 4K, 3 Ca++ bath used today, follow AM labs. Initial pH 7.0, now improved to 7.39 (2) Lactic acidosis ICD Codes: E87.2 - Acidosis Plan: Improved now, HCO3 gtt and dialysis - wean off IVFs as possible. Possible tissues ischemia s/p PEA arrest, possible bowel necrosis? (3) Hyperkalemia, diminished renal excretion ICD Codes: E87.5 - Hyperkalemia Plan: Initial hyperkalemia, then hypokalemia today - 4K bath with HD today. Continue to follow labs (4) Severe sepsis ICD Codes: A41.9 - Sepsis, unspecified organism; R65.20 - Severe sepsis without septic shock Plan: Continue antibiotics and wean pressors as tolerated Bryan Verdugo MD Jan 21, 2018 13:23
--- NOTE | 2018-01-21 13:36 | PD.CAR.PN ---
CVT Progress Note Subjective/Hospital Course: 01/21/2018 Patient known to me from last admission. He presented with huge right thigh hematoma as a result of cardiac catheterization via right femoral artery and the failure of the Perclose device. Patient bled into the thigh and developed a large pseudoaneurysm He underwent successful repair of the artery with evacuation of pseudoaneurysm with extraperitoneal vascular control Postoperatively patient did well I removed the SINCERE drain on 19 January. Patient returned with gastroparesis ileus and cardiogenic shock On exam incision in the right groin is clean and dry There is still drainage from the SINCERE site and I will place a small colostomy bag over this until the drainage stops. Abdomen is now mildly distended but soft and well decompressed with nasogastric tube. I reviewed the CAT scan of the abdomen and it shows diffuse ileus with gastroparesis and I believe patient third spaced a lot of fluid into the intestinal tract became dehydrated in the relative terms and hypovolemic and in the face of aortic stenosis decompensated With rehydration patient is doing better but this is a critical situation and in face of comorbidities the survival is low In current condition patient is absolutely not a candidate for any surgical procedure Will follow Objective: Vital Signs Date Time Temp Pulse Resp B/P (MAP) Pulse Ox O2 Delivery O2 Flow Rate FiO2 01/21/18 12:40 89 83/34 01/21/18 12:05 87 83/35 01/21/18 11:55 97 35 01/21/18 11:51 82 80/01/21/18 10:05 93 95/39 01/21/18 10:00 93 01/21/18 09:29 98 35 01/21/18 08:59 87 83/01/21/18 08:58 87 80/31 01/21/18 08:00 89 01/21/18 08:00 98.7 88 26 78/36 (50) 100 01/21/18 07:45 98.7 85 26 86/34 99 01/21/18 07:00 97 Mechanical Ventilator 35 01/21/18 06:00 89 01/21/18 05:44 01/21/18 05:43 98.4 86 26 79/29 99 01/21/18 05:42 98.4 87 26 77/29 99 01/21/18 05:32 89 78/29 2/25/18 05:27 92 83/32 01/21/18 05:22 89 81/30 01/21/18 04:35 88 81/30 01/21/18 04:00 90 01/21/18 04:00 98.5 90 26 86/32 (50) 100 01/21/18 03:12 100 35 01/21/18 02:00 88 01/21/18 02:00 88 80/31 01/21/18 02:00 88 80/31 18 00:18 100 35 01/21/18 00:00 98.3 102 27 84/36 (52) 100 01/21/18 00:00 102 01/20/18 23:25 102 81/35 01/20/18 23:13 104 82/36 01/20/18 22:46 107 86/36 01/20/18 22:13 108 85/36 01/20/18 22:03 109 95/35 01/20/18 22:00 109 01/20/18 21:44 111 97/39 01/20/18 21:34 108 92/38 01/20/18 21:04 108 93/38 01/20/18 20:00 111 01/20/18 20:00 98.8 109 26 110/52 (71) 100 01/20/18 19:26 100 50 01/20/18 19:00 100 Mechanical Ventilator 60 01/20/18 18:21 111 106/53 01/20/18 18:20 110 100/52 01/20/18 18:06 112 96/48 01/20/18 18:00 112 01/20/18 16:40 104 90/50 01/20/18 16:00 99.2 104 26 94/50 (65) 99 01/20/18 16:00 104 01/20/18 15:29 99 60 01/20/18 14:00 104 01/20/18 13:37 106 114/57 Labs: Laboratory Tests Test 01/21/18 04:15 01/21/18 04:43 01/21/18 08:25 White Blood Count 33.3 TH/MM3 (4.0-11.0) Red Blood Count 2.14 MIL/MM3 (4.50-5.90) Hemoglobin 7.0 GM/DL (13.0-17.0) Hematocrit 21.2 % (39.0-51.0) Mean Corpuscular Volume 99.0 FL (80.0-100.0) Mean Corpuscular Hemoglobin 32.6 PG (27.0-34.0) Mean Corpuscular Hemoglobin Concent 32.9 % (32.0-36.0) Red Cell Distribution Width 18.4 % (11.6-17.2) Platelet Count 115 TH/MM3 (150-450) Mean Platelet Volume 10.0 FL (7.0-11.0) Neutrophils (%) (Auto) 95.3 % (16.0-70.0) Lymphocytes (%) (Auto) 1.5 % (9.0-44.0) Monocytes (%) (Auto) 2.3 % (0.0-8.0) Eosinophils (%) (Auto) 0.7 % (0.0-4.0) Basophils (%) (Auto) 0.2 % (0.0-2.0) Neutrophils # (Auto) 31.7 TH/MM3 (1.8-7.7) Lymphocytes # (Auto) 0.5 TH/MM3 (1.0-4.8) Monocytes # (Auto) 0.8 TH/MM3 (0-0.9) Eosinophils # (Auto) 0.2 TH/MM3 (0-0.4) Basophils # (Auto) 0.1 TH/MM3 (0-0.2) CBC Comment AUTO DIFF Differential Total Cells Counted 100 Neutrophils % (Manual) 70 % (16-70) Band Neutrophils % 20 % (0-6) Lymphocytes % 4 % (9-44) Monocytes % 1 % (0-8) Eosinophils % 2 % (0-4) Neutrophils # (Manual) 31.0 TH/MM3 (1.8-7.7) Metamyelocytes 2 % (0-1) Myelocytes 1 % (0-0) Nucleated Red Blood Cells 5 /100 WBC (0-0) Differential Comment FINAL DIFF MANUAL Toxic Granulation 2+ (NORMAL) Toxic Vacuolation PRESENT (NONE SEEN) Dohle Bodies PRESENT (NONE SEEN) Platelet Estimate NORMAL (NORMAL) Platelet Morphology Comment NORMAL (NORMAL) Basophilic Stippling FAINT (NORMAL) Spherocytes 1+ (NORMAL) Blood Urea Nitrogen 31 MG/DL (7-18) Creatinine 4.78 MG/DL (0.60-1.30) Random Glucose 247 MG/DL (74-106) Total Protein 4.3 GM/DL (6.4-8.2) Albumin 2.1 GM/DL (3.4-5.0) Calcium Level 7.4 MG/DL (8.5-10.1) Alkaline Phosphatase 135 U/L (45-117) Aspartate Amino Transf (AST/SGOT) 5613 U/L (15-37) Alanine Aminotransferase (ALT/SGPT) 376 U/L (12-78) Total Bilirubin 6.7 MG/DL (0.2-1.0) Sodium Level 135 MEQ/L (136-145) Potassium Level 3.1 MEQ/L (3.5-5.1) Chloride Level 92 MEQ/L (98-107) Carbon Dioxide Level 25.6 MEQ/L (21.0-32.0) Anion Gap 17 MEQ/L (5-15) Estimat Glomerular Filtration Rate 12 ML/MIN (>89) Protein Corrected Calcium 9.0 MG/DL (8.5-10.1) Blood Gas Puncture Site ART LINE Blood Gas Patient Temperature 98.6 Blood Gas HCO3 23 mmol/L (22-26) Blood Gas Base Excess -1.0 mmol/L (-2-2) Blood Gas Oxygen Saturation 96 % (90-100) Arterial Blood pH 7.39 (7.380-7.420) Arterial Blood Partial Pressure CO2 39 mmHg (38-42) Arterial Blood Partial Pressure O2 130 mmHg (61-120) Arterial Blood Oxygen Content 9.6 Vol % (12.0-20.0) Arterial Blood Carboxyhemoglobin 2.2 % (0-4) Arterial Blood Methemoglobin 1.0 % (0-2) Blood Gas Hemoglobin 6.9 G/DL (12.0-16.0) Oxygen Delivery Device VENTILATOR Blood Gas Ventilator Setting PRVC/AC Blood Gas Inspired Oxygen 35 % Lactic Acid Level 10.5 mmol/L (0.4-2.0) Troponin I 9.82 NG/ML (0.02-0.05) B-Type Natriuretic Peptide GREATER THAN 5000 PG/ML Lipase 36 U/L (73-393) Result Diagram: 01/21/18 0415 01/21/18 0415 Delio Lux MD Jan 21, 2018 13:36
[2018-01-21 17:04] LABS: BICARBONATE 26.8 MEQ/L (21.0-32.0); CALCIUM 8.3 MG/DL (8.5-10.1); CREATININE 3.21 MG/DL (0.60-1.30)
[2018-01-21] MEDS: CEFEPIME 1000 MG/NS 100 ML IV SCH ×2 (20:17)
[2018-01-22] VITALS (19 sets, daily range): BP systolic 79–102; BP diastolic 44–52; PULSE 78–133; RESP 26–30; TEMP 99.2–102.4; O2SAT 96–99
[2018-01-22] MEDS: SODIUM BICARBONATE 8.4% INJ 150 MEQ in DEXTROSE 5% IN WATE 1000ML INJ 1,000 ML IV SCH ×4 (00:48→10:52)
[2018-01-22] MEDS ORDERED: PHENYLEPHRINE HCL 10 MG/ML VIAL ONE (01:10)
[2018-01-22] MEDS: metroNIDAZOLE 500 MG INJ 100 ML IV SCH ×3 (01:35→18:06)
[2018-01-22] MEDS: DOBUTamine PREMIX DRIP 250 ML IV PRN ×4 (01:36→22:29)
[2018-01-22] MEDS: CHLORHEXIDINE GLUCONATE 2 % 1 PACK (2 CLOTHS) TOP SCH ×2 (03:34→23:12)
[2018-01-22 05:03] LABS: ALBUMIN 2.5 GM/DL (3.4-5.0); ALKALINE PHOSPHATASE 471 U/L (45-117); ALT (GPT) 91 U/L (12-78); AST (GOT) 1878 U/L (15-37); BLOOD UREA NITROGEN 20 MG/DL (7-18); CALCIUM 8.2 MG/DL (8.5-10.1); CHLORIDE 83 MEQ/L (98-107); CREATININE 3.66 MG/DL (0.60-1.30); GLOMERULAR FILTRATION RATE 17 ML/MIN (>89); GLUCOSE,RANDOM 325 MG/DL (74-106); MAGNESIUM 1.2 MG/DL (1.5-2.5); PHOSPHORUS 1.7 MG/DL (2.5-4.9); TOTAL PROTEIN 4.5 GM/DL (6.4-8.2)
[2018-01-22 05:04] LABS: TOTAL BILIRUBIN ADULT 12.6 MG/DL (0.2-1.0)
[2018-01-22 05:06] LABS: SODIUM (NA) 124 MEQ/L (136-145)
[2018-01-22 05:10] LABS: AUTOMATED NEUTROPHIL # 31.3 TH/MM3 (1.8-7.7); BASOPHIL # 0.1 TH/MM3 (0-0.2); BASOPHIL % 0.3 % (0.0-2.0); EOSINOPHIL # 0.4 TH/MM3 (0-0.4); EOSINOPHIL % 1.4 % (0.0-4.0); HEMATOCRIT 25.8 % (39.0-51.0); HEMOGLOBIN 8.8 GM/DL (13.0-17.0); LYMPH % 1.1 % (9.0-44.0); LYMPHOCYTE # 0.4 TH/MM3 (1.0-4.8); MEAN CELL VOLUME 94.5 FL (80.0-100.0); MEAN CORPUSCULAR HEMOGLOBIN 32.2 PG (27.0-34.0); MEAN CORPUSCULAR HGB CONC 34.1 % (32.0-36.0); MEAN PLATELET VOLUME 10.1 FL (7.0-11.0); NEUT % 94.2 % (16.0-70.0); PLATELET COUNT 72 TH/MM3 (150-450); RED BLOOD COUNT 2.73 MIL/MM3 (4.50-5.90); RED CELL DISTRIBUTION WIDTH 17.9 % (11.6-17.2); WHITE BLOOD COUNT 33.2 TH/MM3 (4.0-11.0)
[2018-01-22 07:05] LABS: BANDS 18 % (0-6); CORRECTED NUCLEATED RBC 25 /100 WBC (0-0); DOHLE BODIES PRESENT (NONE SEEN); LYMPHOCYTES 2 % (9-44); METAMYELOCYTES 1 % (0-1); MONOCYTES 4 % (0-8); MYELOCYTES 1 % (0-0); NEUTROPHIL # MANUAL DIFF 30.9 TH/MM3 (1.8-7.7); NUCLEATED RED BLOOD CELL 25 (0-0); POLYS (SEG NEUTROPHILS) 73 % (16-70)
[2018-01-22 07:06] LABS: TOXIC GRANULATION 1+ (NORMAL)
[2018-01-22] MEDS: NOREPINEPHRINE 8 MG/D5W 250 ML IV PRN ×2 (07:41)
[2018-01-22] MEDS: CHLORHEXIDINE 0.12% (ORAL KIT) 15 ML CUP MT SCH ×2 (08:27→20:25)
[2018-01-22] MEDS: SODIUM CHLORIDE 0.9% FLUSH 10 ML FLUSH IV FLUSH SCH ×2 (09:00→20:25)
[2018-01-22] MEDS: CEFEPIME 1000 MG/NS 100 ML IV SCH ×4 (09:14→20:24)
[2018-01-22] MEDS: DOCUSATE SODIUM 50 MG/SENNA 8.6 MG TAB PO SCH ×2 (09:15→20:24)
[2018-01-22] MEDS: FAMOTIDINE 20 MG TAB PO SCH ×2 (09:15→20:25)
[2018-01-22] MEDS: PHENYLEPHRINE INJ 80 MG in SODIUM CHLORID 0.9% 500 ML INJ 492 ML IV PRN ×5 (10:19→23:01)
[2018-01-22] MEDS: NOREPINEPHRINE INJ 8 MG in SODIUM CHLOR 0.9% 250 ML INJ 242 ML IV PRN ×5 (10:20→20:49)
[2018-01-22] MEDS: EPINEPHrine (1:1000) INJ 2 MG in SODIUM CHLOR 0.9% 250 ML INJ 248 ML IV PRN ×3 (10:20→21:21)
--- NOTE | 2018-01-22 11:08 | HHI.NPPN ---
Subjective General Problems: Anemia, Edema Renal Failure: Chronic, End Stage Renal Disease Interval History Unresponsive without sedation. Maxed out on 3 pressors and dobutamine. Extensive fluid overload. (Leticia Santiago) Review of Systems General General Remarks unable to obtain (Leticia Santiago) Objective Data Data 01/22/18 01/23/18 19:00 07:00 Intake Total 2750 ml Balance 2750 ml IV Total 2750 ml Vital Signs Date Time Temp Pulse Resp B/P (MAP) Pulse Ox O2 Delivery O2 Flow Rate FiO2 01/22/18 10:20 98 89/48 01/22/18 10:20 97 91/48 01/22/18 10:19 98 90/46 01/22/18 10:01 98 94/49 01/22/18 10:00 97 01/22/18 08:00 101 01/22/18 08:00 101.2 102 30 96/50 (65) 98 01/22/18 07:52 96 35 01/22/18 07:41 99 90/46 01/22/18 07:00 97 Mechanical Ventilator 35 01/22/18 06:00 101 01/22/18 04:22 97 35 01/22/18 04:00 99 01/22/18 04:00 102.4 102 30 94/47 (63) 97 01/22/18 02:00 99 01/22/18 01:47 97 35 01/22/18 01:36 98 96/53 01/22/18 00:00 98 01/22/18 00:00 99.2 99 29 102/52 (69) 99 01/21/18 22:39 98 35 01/21/18 22:00 99 01/21/18 20:19 91 98/52 01/21/18 20:00 94 01/21/18 20:00 99.5 94 29 94/50 (65) 98 01/21/18 19:26 98 35 01/21/18 19:00 100 Mechanical Ventilator 35 01/21/18 18:00 119 01/21/18 17:45 122 81/50 01/21/18 16:20 119 80/43 01/21/18 16:19 122 80/42 01/21/18 16:00 125 01/21/18 16:00 98.2 120 26 82/42 (55) 97 01/21/18 15:37 96 35 01/21/18 14:56 95 88/41 01/21/18 14:14 90 103/43 01/21/18 14:00 99 01/21/18 12:40 89 83/34 01/21/18 12:05 87 83/35 01/21/18 12:00 98.5 84 26 84/32 (49) 99 01/21/18 12:00 84 01/21/18 11:55 97 35 01/21/18 11:51 82 80/31 (Leticia Santiago) -: 01/22/18 0451 01/22/18 0400 Imaging Last 72 hours Impressions Chest X-Ray 01/20/18 0355 Signed Impressions: Service Date/Time: Saturday, January 20, 2018 04:12 - CONCLUSION: Patchy atelectasis. Hossein Escobar MD Chest X-Ray 01/20/18 0000 Signed Impressions: Service Date/Time: Saturday, January 20, 2018 15:01 - CONCLUSION: 1. The endotracheal tube is malpositioned. It extends into the right main bronchus by approximately 2.9 cm. Suggest retraction by approximately 4.5 cm. This finding was telephoned to the patient's nurse, Alesia Morales, via telephone on 01/20/2018 at 4: 2. 53 PM. 3. Nasogastric tube is looped in the stomach. 4. Mild interstitial opacities in a perihilar lower lung zone distribution bilaterally which could indicate interstitial pulmonary edema. Hossein Doyle MD Abdomen/Pelvis CT 01/20/18 0000 Signed Impressions: Service Date/Time: Saturday, January 20, 2018 05:24 - CONCLUSION: 1. Distended stomach, small bowel and right side of the colon. Although there is a caliber change in the region of the splenic flexure region of the colon, in believe this is all most likely an ileus. I don't see a mass or significant inflammatory changes. With the stomach being distended, and the patient may benefit from decompression with a nasogastric tube. 2. Interim vascular surgery in the right groin. Right flank hematoma is slightly smaller. 3. Small intra-abdominal ascites, decreased. Hossein Escobar MD Abdomen X-Ray 01/20/18 0000 Signed Impressions: Service Date/Time: Saturday, January 20, 2018 04:14 - CONCLUSION: Abnormal bowel gas pattern of concern for small bowel obstruction. No free air. Hossein Escobar MD Drip Comment Levophed, dobutamine, epinephrine. phenylephrine, bicarb gtt, (Leticia Santiago) Physical Exam General Appearance: Well Developed, No Acute Distress (Leticia Santiago RN ANESTHETIST) Eyes Eye Exam: Pupils Equal (Leticia Santiago RN ANESTHETIST) Neck Neck Exam: Neck Supple (Leticia Santiago RN ANESTHETIST) Pulmonary Resp Exam: Decreased Bases, Diminished Breath Sounds (Leticia Santiago BJesse RN ANESTHETIST) Cardiology CV Exam: Regular, Normal Sinus Rhythm (Leticia Santiago RN ANESTHETIST) Gastrointestinal/Abdomen GI Exam: Soft, Bowel Sounds Present, Distended (Leticia Santiago RN ANESTHETIST) Musculoskeletal MS Exam: Normal Tone, Unable to Ambulate (Leticia Santiago RN ANESTHETIST) Integumentary Skin Exam: Dry, Intact (Leticia Santiago RN ANESTHETIST) Extremeties Extremities Exam: Pedal Pulses Palpable, Moderate Edema, Pitting Edema, Dependent Edema (Leticia Santiago BJesse RN ANESTHETIST) Neurologic Neuro Exam: Unresponsive, Sedated (Leticia Santiago) Assessment/Plan Assessment Summary: Anemia of CKD, Fluid/Volume Overload Problem List: (1) ESRD on dialysis ICD Codes: N18.6 - End stage renal disease; Z99.2 - Dependence on renal dialysis Plan: Typical TTS HD HD Monday (no UF), Monday had 3L UF Over 11 liters positive, he needs fluid removal however he is very unstable, maxed out on 3 pressors and 1 inotrope HD today, fluid removal as tolerated, goal 3-4 liters. May need CRRT. Would need a vascath to proceed in that case. Acidosis improved, stop Bicarb gtt that is at 125 ml/hr He is anuric at baseline Very poor prognosis. s/p PEA arrest. (2) Lactic acidosis ICD Codes: E87.2 - Acidosis Plan: Due to cardiac arrest Stop bicarb gtt (3) Hyperkalemia, diminished renal excretion ICD Codes: E87.5 - Hyperkalemia Plan: Improved with HD Continue to follow labs (4) Severe sepsis ICD Codes: A41.9 - Sepsis, unspecified organism; R65.20 - Severe sepsis without septic shock Plan: Continue antibiotics, supportive measures Follow cultures ID following (Leticia Snatiago) Problem List: (1) ESRD on dialysis ICD Codes: N18.6 - End stage renal disease; Z99.2 - Dependence on renal dialysis Plan: Typical TTS HD HD Monday (no UF), Monday had 3L UF Over 11 liters positive, he needs fluid removal however he is very unstable, maxed out on 3 pressors and 1 inotrope HD today, fluid removal as tolerated, goal 3-4 liters. May need CRRT. Would need a vascath to proceed in that case. Acidosis improved, stop Bicarb gtt that is at 125 ml/hr He is anuric at baseline Very poor prognosis. s/p PEA arrest. (2) Lactic acidosis ICD Codes: E87.2 - Acidosis Plan: Due to cardiac arrest Stop bicarb gtt (3) Hyperkalemia, diminished renal excretion ICD Codes: E87.5 - Hyperkalemia Plan: Improved with HD Continue to follow labs (4) Severe sepsis ICD Codes: A41.9 - Sepsis, unspecified organism; R65.20 - Severe sepsis without septic shock Plan: Continue antibiotics, supportive measures Follow cultures ID following Plan patient was seen and examined. Hemodynamically unstable. Volume overload is present. Prognosis is poor. May need CRRT. (Louis Enrique MD) Leticia Santiago Jan 22, 2018 11:08 Louis Enrique MD Jan 22, 2018 12:46
--- NOTE | 2018-01-22 11:30 | PD.CAR.PN ---
CVT Progress Note Subjective/Hospital Course: 01/21/2018 Patient known to me from last admission. He presented with huge right thigh hematoma as a result of cardiac catheterization via right femoral artery and the failure of the Perclose device. Patient bled into the thigh and developed a large pseudoaneurysm He underwent successful repair of the artery with evacuation of pseudoaneurysm with extraperitoneal vascular control Postoperatively patient did well I removed the SINCERE drain on 19 January. Patient returned with gastroparesis ileus and cardiogenic shock On exam incision in the right groin is clean and dry There is still drainage from the SINCERE site and I will place a small colostomy bag over this until the drainage stops. Abdomen is now mildly distended but soft and well decompressed with nasogastric tube. I reviewed the CAT scan of the abdomen and it shows diffuse ileus with gastroparesis and I believe patient third spaced a lot of fluid into the intestinal tract became dehydrated in the relative terms and hypovolemic and in the face of aortic stenosis decompensated With rehydration patient is doing better but this is a critical situation and in face of comorbidities the survival is low In current condition patient is absolutely not a candidate for any surgical procedure Will follow 01/22/2018 Right groin incision is clean and dry The thigh SINCERE site is covered with a ileostomy bag in order to catch the drainage Medial aspect of the right thigh displays area of skin which has been severely ischemic when patient had a large hematoma and this will likely slough off or would need to be debrided depending on patient's progress Nothing to add from a vascular point discussed with Dr. Ba and I agree with him that prognosis is very grave Objective: Vital Signs Date Time Temp Pulse Resp B/P (MAP) Pulse Ox O2 Delivery O2 Flow Rate FiO2 01/22/18 10:20 98 89/48 01/22/18 10:20 97 91/48 01/22/18 10:19 98 90/46 01/22/18 10:01 98 94/49 01/22/18 10:00 97 01/22/18 08:00 101 01/22/18 08:00 101.2 102 30 96/50 (65) 98 01/22/18 07:52 96 35 01/22/18 07:41 99 90/46 01/22/18 07:00 97 Mechanical Ventilator 35 01/22/18 06:00 101 01/22/18 04:22 97 35 01/22/18 04:00 99 01/22/18 04:00 102.4 102 30 94/47 (63) 97 01/22/18 02:00 99 01/22/18 01:47 97 35 01/22/18 01:36 98 96/53 01/22/18 00:00 98 01/22/18 00:00 99.2 99 29 102/52 (69) 99 01/21/18 22:39 98 35 01/21/18 22:00 99 01/21/18 20:19 91 98/52 01/21/18 20:00 94 01/21/18 20:00 99.5 94 29 94/50 (65) 98 01/21/18 19:26 98 35 01/21/18 19:00 100 Mechanical Ventilator 35 01/21/18 18:00 119 01/21/18 17:45 122 81/50 01/21/18 16:20 119 80/43 01/21/18 16:19 122 80/42 01/21/18 16:00 125 01/21/18 16:00 98.2 120 26 82/42 (55) 97 01/21/18 15:37 96 35 01/21/18 14:56 95 88/41 01/21/18 14:14 90 103/43 01/21/18 14:00 99 01/21/18 12:40 89 83/34 01/21/18 12:05 87 83/35 01/21/18 12:00 98.5 84 26 84/32 (49) 99 01/21/18 12:00 84 01/21/18 11:55 97 35 01/21/18 11:51 82 80/31 Labs: Laboratory Tests Test 01/22/18 04:00 01/22/18 04:51 Blood Urea Nitrogen 20 MG/DL (7-18) Creatinine 3.66 MG/DL (0.60-1.30) Random Glucose 325 MG/DL (74-106) Total Protein 4.5 GM/DL (6.4-8.2) Albumin 2.5 GM/DL (3.4-5.0) Calcium Level 8.2 MG/DL (8.5-10.1) Phosphorus Level 1.7 MG/DL (2.5-4.9) Magnesium Level 1.2 MG/DL (1.5-2.5) Alkaline Phosphatase 471 U/L (45-117) Aspartate Amino Transf (AST/SGOT) 1878 U/L (15-37) Alanine Aminotransferase (ALT/SGPT) 91 U/L (12-78) Total Bilirubin 12.6 MG/DL (0.2-1.0) Sodium Level 124 MEQ/L (136-145) Potassium Level 3.7 MEQ/L (3.5-5.1) Chloride Level 83 MEQ/L (98-107) Carbon Dioxide Level 24.0 MEQ/L (21.0-32.0) Anion Gap 17 MEQ/L (5-15) Estimat Glomerular Filtration Rate 17 ML/MIN (>89) White Blood Count 33.2 TH/MM3 (4.0-11.0) Red Blood Count 2.73 MIL/MM3 (4.50-5.90) Hemoglobin 8.8 GM/DL (13.0-17.0) Hematocrit 25.8 % (39.0-51.0) Mean Corpuscular Volume 94.5 FL (80.0-100.0) Mean Corpuscular Hemoglobin 32.2 PG (27.0-34.0) Mean Corpuscular Hemoglobin Concent 34.1 % (32.0-36.0) Red Cell Distribution Width 17.9 % (11.6-17.2) Platelet Count 72 TH/MM3 (150-450) Mean Platelet Volume 10.1 FL (7.0-11.0) Neutrophils (%) (Auto) 94.2 % (16.0-70.0) Lymphocytes (%) (Auto) 1.1 % (9.0-44.0) Monocytes (%) (Auto) 3.0 % (0.0-8.0) Eosinophils (%) (Auto) 1.4 % (0.0-4.0) Basophils (%) (Auto) 0.3 % (0.0-2.0) Neutrophils # (Auto) 31.3 TH/MM3 (1.8-7.7) Lymphocytes # (Auto) 0.4 TH/MM3 (1.0-4.8) Monocytes # (Auto) 1.0 TH/MM3 (0-0.9) Eosinophils # (Auto) 0.4 TH/MM3 (0-0.4) Basophils # (Auto) 0.1 TH/MM3 (0-0.2) CBC Comment AUTO DIFF Differential Total Cells Counted 100 Neutrophils % (Manual) 73 % (16-70) Band Neutrophils % 18 % (0-6) Lymphocytes % 2 % (9-44) Monocytes % 4 % (0-8) Eosinophils % 1 % (0-4) Neutrophils # (Manual) 30.9 TH/MM3 (1.8-7.7) Metamyelocytes 1 % (0-1) Myelocytes 1 % (0-0) Nucleated Red Blood Cells 25 /100 WBC (0-0) Differential Comment FINAL DIFF MANUAL Toxic Granulation 1+ (NORMAL) Dohle Bodies PRESENT (NONE SEEN) Platelet Estimate LOW (NORMAL) Platelet Morphology Comment NORMAL (NORMAL) Polychromasia 2.0 % (0.0-1.9) Basophilic Stippling FAINT (NORMAL) Result Diagram: 01/22/18 0451 01/22/18 0400 Delio Lux MD Jan 22, 2018 11:30
--- NOTE | 2018-01-22 12:10 | HHI.CCPN ---
Subjective Remarks/Hospital Course 01/20: Patient discharged yesterday and returns to ED with distended abdomen and bowel pattern of severe ileus vs obstruction. NG removed 1300 mls and abdomen remains distended. Right groin is mildly erythematous. Will cover with broad abx for bowel and wound, continue gastric decompression. Hypotensive still after 1000 ml infusion, severe aortic stenosis and depressed LV function. Start levophed while undergoing fluid resuscitation. 01/20 1045 hours: Arterial and venous lines placed left groin by Dr. Staton while I have continued resuscitation efforts. Patient with wide complex rhythm chronically but now having brief runs of possible v-tach. Blood pressure remains low in the 65 - 70 range.Levophed increased and neosynephrine started. ABG reflects metabolic acidosis and bicarb replacement initiated. Pulse oximetry saturation remains 100% but respiratory rate has increased to 28-32 range. Broad spectrum abx started. K 4.8. I arranged to orally intubate patient and connected patient to code cart monitor. CPR was instituted due to persistent SBP 50 range now and unresponsive to vasopressor bolus therapy. Full code with ACLS protocol and orotracheal intubation initiated (See code sheet). Rhythm deteriorated to PEA. Restored to perfusing rhythm for two brief periods and after about 45 mins of CPR a perfusing rhythm was restored on levophed and neosynephrine infusions. I spoke with the son and patient's at the bedside and informed them of the events. 01/21: Still requiring large inotropic and vasopressor support at levels incompatible with survival. Hemodialysis helped us control acid/base balance last evening. Perfusion remains marginal at best, gas exchange is acceptable. Clinical course is very unstable. Operative exploration of the abdomen would not be tolerated under any circumstances so I have not asked the general surgeons to weigh in. I have discussed care in detail with the nephrology team and we will make arrangements to continue dialysis.Patient does open his eyes and appears to track with eyes and hear his family's voices. 01/22: Continued unstable hemodynamics. Will require HD today. Prognosis poor. Objective Vital Signs Date Time Temp Pulse Resp B/P (MAP) Pulse Ox O2 Delivery O2 Flow Rate FiO2 01/22/18 11:47 97 35 01/22/18 10:20 98 89/48 01/22/18 08:00 101.2 30 01/22/18 07:00 Mechanical Ventilator Intake and Output 01/22/18 01/22/18 01/23/18 08:00 16:00 00:00 Intake Total 250 ml 2500 ml Output Total 600 ml Balance -350 ml 2500 ml Result Diagram: 01/22/18 0451 01/22/18 0400 Objective Remarks Physical Exam Physical Exam Vital Signs Physical Exam GENERAL: Ill-appearing, poorly perfused. SKIN/MSK/VASC: Warm and dry. There is a large ecchymosis overlying right groin extending proximal to the inguinal ligament and down right anterior medial thigh. Groin incision right is warm, erythematous. Foot is warm with palpable DP pulse and PT pulse. Left upper arm fistula with palpable thrill. HEAD: Atraumatic. Normocephalic. EYES: R pupil 2mm and reactive. L pupil 3 mm and nonreactive. No scleral icterus. No injection or drainage. ENT: No nasal bleeding or discharge. Mucous membranes pink and moist. NECK: Trachea midline. Orally intubated. Supple. CARDIOVASCULAR: Regular rate and rhythm. 4/6 systolic murmur right sternal border and 3/6 diastolic murmur left lower sternal border. ++ JVD. RESPIRATORY: Mechanical ventilation. Clear to auscultation bilaterally. Sats 100 % on pulse ox. GASTROINTESTINAL: Abdomen distended, few bowel sounds. Mildly tender to palpation, no peritoneal irritation. Bowel sounds sparse. NEUROLOGICAL: Lethargic. Motor grossly within normal limits. Greek-speaking. A/P Assessment and Plan Assessment and Plan Assessment and Plan 1. Severe sepsis. 2. Bowel obstruction. 3. Metabolic acidosis. 4. Encephalopathy, metabolic. 5. ESRD. 6. Severe Aortic Stenosis. 7. Cardiopulmonary Arrest. Plan: ID - Vanc and cefepime, add flagyl - NS one liter - Levophed - Serial lactic acid. NEURO: - Serial exam RESP: - PRVC vent mode CV: Cardiogenic Shock s/p cardiac arrest requiring 50 mins resuscitation Aortic stenosis status post aortic valve replacement now with severe prosthetic stenosis. 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 Bowers Cardiac catheterization 01/11/[address] Cox Continue requirements for aggressive inotropic support. GI: NPO - NG to LIS. FEN/RENAL: ESRD Secondary hyperparathyroidism Received calcium, bicarbonate 50 mEq, insulin 10 units IV, amp D50, albuterol, Kayexalate in the emergency department. Contacted Dr. Enrique who will proceed with emergent HD. Patient's primary operating engineer is Dr. Dickinson in [place]. Has left upper extremity fistula which has recently been functioning following intervention by Dr. Dannie Verdugo. Continue Renvela 800 mg by mouth 3 times a day. Sensipar 60 po daily Patient still makes some urine. HEME: Thrombocytopenia Epogen 10,000 units with dialysis. ENDO: Diabetes mellitus Hold tradjenta 5 mg po daily Monitor bedside glucose. Initiate low-dose insulin sliding scale as indicated. Hypoglycemia on admission, start D10W drip. Slowly taper. PROPH: SCDs for DVT prophylaxis. Famotidine for stress ulcer prophylaxis. ACCESS: Peripheral IV providing adequate access at this time. Left upper extremity fistula Place emergency groin lines, a-line # 3, CVL # 3 Overall impression: Patient is unstable and critically ill with severe sepsis and metabolic acidosis still undergoing resuscitation with vasopressors, inotropes, fluid infusion, and electrolyte correction. Cardiac arrest required over 45 minutes to resuscitate. Severe acidosis, possibly indicative of ischemic bowel. Patient is presently much too unstable to tolerate a laparotomy or travel for additional scans. Hemodialysis performed with improvement of acid/ base balance. Follow lactic acid closely. Primary pathophysiology is cardiogenic shock from severe aortic stenosis and left ventricular dysfunction. Abdomen appears less problematic today - source of sepsis unclear. He remains unstable and critically ill. Full code status. Critical care 40 mins aside from procedures Dav Dunlap MD Jan 22, 2018 12:10
[2018-01-22] MEDS: ALBUMIN 25% INJ 100 ML IV PRN ×2 (12:56→12:57)
[2018-01-22] MEDS: MANNITOL 12.5 GM/50 ML VIAL IV PRN (12:57)
[2018-01-23] VITALS: BP 72/36; PULSE 79; RESP 26; TEMP 98.1; O2SAT 98
--- NOTE | 2018-01-23 15:00 | HHI.DS ---
Discharge Summary Admission Date Jan 20, 2018 at 05:59 Discharge Date: Jan 23, 2018 Admitting Diagnosis sepsis (1) Severe sepsis ICD Code: A41.9 - Sepsis, unspecified organism; R65.20 - Severe sepsis without septic shock Diagnosis: Principal (2) Systolic heart failure ICD Code: I50.20 - Unspecified systolic (congestive) heart failure Diagnosis: Principal (3) Lactic acidosis ICD Code: E87.2 - Acidosis Diagnosis: Principal (4) Hypotension ICD Code: I95.9 - Hypotension, unspecified Diagnosis: Principal Status: Acute (5) ESRD on dialysis ICD Code: N18.6 - End stage renal disease; Z99.2 - Dependence on renal dialysis Diagnosis: Secondary (6) Aortic stenosis ICD Code: I35.0 - Nonrheumatic aortic (valve) stenosis Diagnosis: Secondary (7) Ileus ICD Code: K56.7 - Ileus, unspecified Status: Acute Procedures Insertion CVL, a-line Intubation and mechanical ventilation. Brief History From recent admission: 67-year-old male with past medical history of end-stage renal disease who has been on hemodialysis approximately 7 years and receives dialysis from Dr. Dickinson on T/R/S schedule. He also has diabetes mellitus, hypertension, aortic regurgitation, aortic stenosis. He has a bioprosthetic aortic valve with severe prosthetic stenosis and has been undergoing workup for redo valve to be performed by Dr. Bowers. On 01/11 he underwent cardiac catheterization as part of the workup, performed at [facility] by Dr. Cox. Reports states minimal coronary disease. He began having bruising and swelling of his right groin on and this progressed over the last couple of days. The pain was becoming worse and unbearable and so he presented to [facility] emergency department. CTA demonstrated extravasation from right common femoral artery pseudoaneurysm with leakage into a large medial thigh hematoma. Vascular surgery was consulted and Dr. Lux has repaired the artery during last admission. 01/20: Patient discharged yesterday and returns to ED with distended abdomen and bowel pattern of severe ileus vs obstruction. NG removed 1300 mls and abdomen remains distended. Right groin is erythematous. Will cover with broad abx, continue gastric decompression. Hypotensive after 1000 ml, severe aortic stenosis and depressed LV function. Start levophed while undergoing fluid resuscitation. CBC/BMP: 01/22/18 0451 01/22/18 0400 Significant Findings Laboratory Tests Test 01/20/18 15:13 01/20/18 16:04 01/20/18 18:50 01/20/18 20:50 Blood Gas HCO3 17 mmol/L (22-26) 20 mmol/L (22-26) Blood Gas Base Excess -9.4 mmol/L (-2-2) -4.6 mmol/L (-2-2) Arterial Blood pH 7.22 (7.380-7.420) Arterial Blood Partial Pressure CO2 44 mmHg (38-42) 33 mmHg (38-42) Arterial Blood Partial Pressure O2 194 mmHg (61-120) 249 mmHg (61-120) Arterial Blood Oxygen Content 11.3 Vol % (12.0-20.0) Blood Gas Hemoglobin 7.9 G/DL (12.0-16.0) 9.1 G/DL (12.0-16.0) White Blood Count 27.7 TH/MM3 (4.0-11.0) Red Blood Count 2.56 MIL/MM3 (4.50-5.90) Hemoglobin 8.5 GM/DL (13.0-17.0) Hematocrit 25.5 % (39.0-51.0) Red Cell Distribution Width 17.7 % (11.6-17.2) Neutrophils (%) (Auto) 93.9 % (16.0-70.0) Lymphocytes (%) (Auto) 1.4 % (9.0-44.0) Neutrophils # (Auto) 26.0 TH/MM3 (1.8-7.7) Lymphocytes # (Auto) 0.4 TH/MM3 (1.0-4.8) Eosinophils # (Auto) 0.7 TH/MM3 (0-0.4) Band Neutrophils % 55 % (0-6) Lymphocytes % 4 % (9-44) Monocytes % 9 % (0-8) Neutrophils # (Manual) 24.1 TH/MM3 (1.8-7.7) Myelocytes 4 % (0-0) Nucleated Red Blood Cells 6 /100 WBC (0-0) Toxic Granulation 1+ (NORMAL) Toxic Vacuolation PRESENT (NONE SEEN) Dohle Bodies PRESENT (NONE SEEN) Ovalocytes 1+ (NORMAL) Blood Urea Nitrogen 42 MG/DL (7-18) Creatinine 5.65 MG/DL (0.60-1.30) Random Glucose 164 MG/DL (74-106) Total Protein 4.9 GM/DL (6.4-8.2) Albumin 2.1 GM/DL (3.4-5.0) Calcium Level 7.4 MG/DL (8.5-10.1) Alkaline Phosphatase 156 U/L (45-117) Aspartate Amino Transf (AST/SGOT) 5120 U/L (15-37) Alanine Aminotransferase (ALT/SGPT) 676 U/L (12-78) Total Bilirubin 6.6 MG/DL (0.2-1.0) Chloride Level 96 MEQ/L (98-107) Anion Gap 24 MEQ/L (5-15) Estimat Glomerular Filtration Rate 10 ML/MIN (>89) Lactic Acid Level 15.0 mmol/L (0.4-2.0) 13.8 mmol/L (0.4-2.0) Test 01/21/18 04:15 01/21/18 04:43 01/21/18 08:25 01/21/18 16:00 White Blood Count 33.3 TH/MM3 (4.0-11.0) Red Blood Count 2.14 MIL/MM3 (4.50-5.90) Hemoglobin 7.0 GM/DL (13.0-17.0) Hematocrit 21.2 % (39.0-51.0) Red Cell Distribution Width 18.4 % (11.6-17.2) Platelet Count 115 TH/MM3 (150-450) Neutrophils (%) (Auto) 95.3 % (16.0-70.0) Lymphocytes (%) (Auto) 1.5 % (9.0-44.0) Neutrophils # (Auto) 31.7 TH/MM3 (1.8-7.7) Lymphocytes # (Auto) 0.5 TH/MM3 (1.0-4.8) Band Neutrophils % 20 % (0-6) Lymphocytes % 4 % (9-44) Neutrophils # (Manual) 31.0 TH/MM3 (1.8-7.7) Metamyelocytes 2 % (0-1) Myelocytes 1 % (0-0) Nucleated Red Blood Cells 5 /100 WBC (0-0) Toxic Granulation 2+ (NORMAL) Toxic Vacuolation PRESENT (NONE SEEN) Dohle Bodies PRESENT (NONE SEEN) Basophilic Stippling FAINT (NORMAL) Spherocytes 1+ (NORMAL) Blood Urea Nitrogen 31 MG/DL (7-18) 19 MG/DL (7-18) Creatinine 4.78 MG/DL (0.60-1.30) 3.21 MG/DL (0.60-1.30) Random Glucose 247 MG/DL (74-106) 263 MG/DL (74-106) Total Protein 4.3 GM/DL (6.4-8.2) Albumin 2.1 GM/DL (3.4-5.0) Calcium Level 7.4 MG/DL (8.5-10.1) 8.3 MG/DL (8.5-10.1) Alkaline Phosphatase 135 U/L (45-117) Aspartate Amino Transf (AST/SGOT) 5613 U/L (15-37) Alanine Aminotransferase (ALT/SGPT) 376 U/L (12-78) Total Bilirubin 6.7 MG/DL (0.2-1.0) Sodium Level 135 MEQ/L (136-145) 130 MEQ/L (136-145) Potassium Level 3.1 MEQ/L (3.5-5.1) Chloride Level 92 MEQ/L (98-107) 89 MEQ/L (98-107) Anion Gap 17 MEQ/L (5-15) Estimat Glomerular Filtration Rate 12 ML/MIN (>89) 20 ML/MIN (>89) Arterial Blood Partial Pressure O2 130 mmHg (61-120) Arterial Blood Oxygen Content 9.6 Vol % (12.0-20.0) Blood Gas Hemoglobin 6.9 G/DL (12.0-16.0) Lactic Acid Level 10.5 mmol/L (0.4-2.0) Troponin I 9.82 NG/ML (0.02-0.05) B-Type Natriuretic Peptide GREATER THAN 5000 PG/ML Lipase 36 U/L (73-393) Test 01/21/18 16:50 01/22/18 04:00 01/22/18 04:51 Blood Urea Nitrogen 20 MG/DL (7-18) Creatinine 3.66 MG/DL (0.60-1.30) Random Glucose 325 MG/DL (74-106) Total Protein 4.5 GM/DL (6.4-8.2) Albumin 2.5 GM/DL (3.4-5.0) Calcium Level 8.2 MG/DL (8.5-10.1) Phosphorus Level 1.7 MG/DL (2.5-4.9) Magnesium Level 1.2 MG/DL (1.5-2.5) Alkaline Phosphatase 471 U/L (45-117) Aspartate Amino Transf (AST/SGOT) 1878 U/L (15-37) Alanine Aminotransferase (ALT/SGPT) 91 U/L (12-78) Total Bilirubin 12.6 MG/DL (0.2-1.0) Sodium Level 124 MEQ/L (136-145) Chloride Level 83 MEQ/L (98-107) Anion Gap 17 MEQ/L (5-15) Estimat Glomerular Filtration Rate 17 ML/MIN (>89) White Blood Count 33.2 TH/MM3 (4.0-11.0) Red Blood Count 2.73 MIL/MM3 (4.50-5.90) Hemoglobin 8.8 GM/DL (13.0-17.0) Hematocrit 25.8 % (39.0-51.0) Red Cell Distribution Width 17.9 % (11.6-17.2) Platelet Count 72 TH/MM3 (150-450) Neutrophils (%) (Auto) 94.2 % (16.0-70.0) Lymphocytes (%) (Auto) 1.1 % (9.0-44.0) Neutrophils # (Auto) 31.3 TH/MM3 (1.8-7.7) Lymphocytes # (Auto) 0.4 TH/MM3 (1.0-4.8) Monocytes # (Auto) 1.0 TH/MM3 (0-0.9) Neutrophils % (Manual) 73 % (16-70) Band Neutrophils % 18 % (0-6) Lymphocytes % 2 % (9-44) Neutrophils # (Manual) 30.9 TH/MM3 (1.8-7.7) Myelocytes 1 % (0-0) Nucleated Red Blood Cells 25 /100 WBC (0-0) Toxic Granulation 1+ (NORMAL) Dohle Bodies PRESENT (NONE SEEN) Platelet Estimate LOW (NORMAL) Polychromasia 2.0 % (0.0-1.9) Basophilic Stippling FAINT (NORMAL) Imaging CT abdomen - Ileus. CXR. PE at Discharge . Transfer Summary Patient was made DNR status by family after signs of continued clinical deterioration. He at -136 hours on 01/23/18 of cardiac standstill. Hospital Course 01/20: Patient discharged yesterday and returns to ED with distended abdomen and bowel pattern of severe ileus vs obstruction. NG removed 1300 mls and abdomen remains distended. Right groin is mildly erythematous. Will cover with broad abx for bowel and wound, continue gastric decompression. Hypotensive still after 1000 ml infusion, severe aortic stenosis and depressed LV function. Start levophed while undergoing fluid resuscitation. 01/20 1045 hours: Arterial and venous lines placed left groin by Dr. Staton while I have continued resuscitation efforts. Patient with wide complex rhythm chronically but now having brief runs of possible v-tach. Blood pressure remains low in the 65 - 70 range.Levophed increased and neosynephrine started. ABG reflects metabolic acidosis and bicarb replacement initiated. Pulse oximetry saturation remains 100% but respiratory rate has increased to 28-32 range. Broad spectrum abx started. K 4.8. I arranged to orally intubate patient and connected patient to code cart monitor. CPR was instituted due to persistent SBP 50 range now and unresponsive to vasopressor bolus therapy. Full code with ACLS protocol and orotracheal intubation initiated (See code sheet). Rhythm deteriorated to PEA. Restored to perfusing rhythm for two brief periods and after about 45 mins of CPR a perfusing rhythm was restored on levophed and neosynephrine infusions. I spoke with the son and patient's at the bedside and informed them of the events. 01/21: Still requiring large inotropic and vasopressor support at levels incompatible with survival. Hemodialysis helped us control acid/base balance last evening. Perfusion remains marginal at best, gas exchange is acceptable. Clinical course is very unstable. Operative exploration of the abdomen would not be tolerated under any circumstances so I have not asked the general surgeons to weigh in. I have discussed care in detail with the nephrology team and we will make arrangements to continue dialysis.Patient does open his eyes and appears to track with eyes and hear his family's voices. 01/22: Continued unstable hemodynamics. Will require HD today. Prognosis poor. Pt Condition on Discharge: Deteriorating Dav Dunlap MD Jan 23, 2018 15:00
== END 2018-01-23 07:58 | disposition expired | DRG 871 ==
LOC: NEPE 03:33 → NEDA 05:59 → N03B 08:21
PROVIDERS: ADMIT Internal Medicine Critical Care Medicine; ATTEND Internal Medicine Critical Care Medicine
PROC: 04HY32Z Insertion of Monitoring Device into Lower Artery, Percutaneous Approach (ICD-10-PCS; 2018-01-20)
PROC: 5A1D70Z Performance of Urinary Filtration, Intermittent, Less than 6 Hours Per Day (ICD-10-PCS; 2018-01-20)
PROC: 5A1945Z Respiratory Ventilation, 24-96 Consecutive Hours (ICD-10-PCS; 2018-01-20)
PROC: 06HY33Z Insertion of Infusion Device into Lower Vein, Percutaneous Approach (ICD-10-PCS; 2018-01-20)
PROC: 0BH17EZ Insertion of Endotracheal Airway into Trachea, Via Natural or Artificial Opening (ICD-10-PCS; 2018-01-20)
PROC: 5A12012 Performance of Cardiac Output, Single, Manual (ICD-10-PCS; 2018-01-20)
PROC: 30233N1 Transfusion of Nonautologous Red Blood Cells into Peripheral Vein, Percutaneous Approach (ICD-10-PCS; principal; 2018-01-21)
DX: A41.9 Sepsis, unspecified organism (principal); N18.6 End stage renal disease; J96.90 Respiratory failure, unspecified, unspecified whether with hypoxia or hypercapnia; R57.0 Cardiogenic shock; G93.41 Metabolic encephalopathy; I13.2 Hypertensive heart and chronic kidney disease with heart failure and with stage 5 chronic kidney disease, or end stage renal disease; K56.699 Other intestinal obstruction unspecified as to partial versus complete obstruction; N25.81 Secondary hyperparathyroidism of renal origin; E87.2 Acidosis; I50.20 Unspecified systolic (congestive) heart failure; T82.857A Stenosis of other cardiac prosthetic devices, implants and grafts, initial encounter; I95.3 Hypotension of hemodialysis; D69.6 Thrombocytopenia, unspecified; E11.22 Type 2 diabetes mellitus with diabetic chronic kidney disease; E87.5 Hyperkalemia; R65.20 Severe sepsis without septic shock; J44.9 Chronic obstructive pulmonary disease, unspecified; E11.43 Type 2 diabetes mellitus with diabetic autonomic (poly)neuropathy; E11.649 Type 2 diabetes mellitus with hypoglycemia without coma; K31.84 Gastroparesis; D63.1 Anemia in chronic kidney disease; E87.6 Hypokalemia; E86.0 Dehydration; Z66 Do not resuscitate; E86.1 Hypovolemia; F17.200 Nicotine dependence, unspecified, uncomplicated; I44.7 Left bundle-branch block, unspecified; Z99.2 Dependence on renal dialysis; Z95.1 Presence of aortocoronary bypass graft
CPT/HCPCS: 31500; 36430; 36556; 43753; 71045; 74019; 74176; 76937; 80048; 80053; 82550; 82552; 82805; 82948; 83605; 83690; 83735; 83880; 84100; 84484; 85007; 85027; 85610; 85730; 86850; 86900; 86901; 86920; 87040; 87641; 90935; 92950; 94002; 94003; 96374; 96375; J0171; J0282; J0692; J1250; J1265; J2150; J2370; J3370; J7030; J7040; J7050; J7060; J7070; P9016; P9045; P9047